=== PATIENT | male | born 1950 | race Caucasian/White ===

== ENCOUNTER 2018-03-21 13:34 | Emergency (ER) | payer MEDICARE, BC, SELFPAY ==
[2018-03-21] VITALS (27 sets, daily range): BP systolic 135–163; BP diastolic 53–111; PULSE 79–118; RESP 4–32; TEMP 37.3; O2SAT 90–99
[2018-03-21] MEDS: Albuterol/Ipratropium 3 ML UPD VIAL (14:00)
--- NOTE | 2018-03-21 14:07 | DI.RAD_ITS ---
SYMPTOMS/DIAGNOSIS: SOB, WHEEZE CHEST X-RAY: Comparison is 10/24/17. The heart size and pulmonary vasculature are within normal limits. No focal consolidating infitlrates, effusions or pneumothoraces are identified. Degenerative changes are present in the spine. IMPRESSION: No acute pulmonary process.
--- NOTE | 2018-03-21 14:11 | W.ED.GENAD ---
Discharge Plan Disposition Patient Disposition: HOME Condition: Improving Discharge Details Chief Complaint: SOB Clinical Impression: Bronchitis, Asthma Primary Care Provider: Amisha Thakkar ED Provider: Paul Pena Home Meds and New Rx's Prescriptions: New prednisone 20 mg tablet 40 mg PO DAILY Qty: 10 RF: 0 doxycycline hyclate 100 mg tablet 100 mg PO BID Qty: 13 RF: 0 Continue cholecalciferol (vitamin D3) 1,000 UNIT capsule 1 cap PO DAILY RF: 0 glucosam-chond ym-hbixce-ob ac 1 EACH capsule 2 cap PO DAILY RF: 0 inhalational spacing device [Aerochamber Plus Flow-Vu] 1 EACH spacer 1 ea Miscellaneous Q4H PRN Qty: 1 RF: 0 apixaban [Eliquis] 5 mg tablet 5 mg PO BID Qty: 90 RF: 3 atorvastatin [Lipitor] 80 mg tablet 80 mg PO HS Qty: 90 RF: 12 levalbuterol tartrate [Xopenex HFA] 45 mcg/actuation HFA aerosol inhaler 45 - 90 mcg Inhalation Q4H PRN Qty: 45 RF: 5 metoprolol succinate 100 mg tablet extended release 24 hr 100 mg PO DAILY Qty: 90 RF: 3 diltiazem HCl 120 mg capsule,extended release 24hr 120 mg PO DAILY Qty: 180 RF: 3 Discharge Instructions Instructions: Asthma (ED), Acute Bronchitis (ED) Additional Instructions: Please take full course of antibiotic as prescribed. Your next dose is tonight. Take prednisone as prescribed. Your next dose is tomorrow. Be sure to use your inhaler as prescribed for wheezing. Please contact your primary care physician to arrange follow-up. Return to the ER for any worsening or new concerning symptoms. Referrals: Amisha Thakkar MD, [place] [Primary Care Provider] - Medical Decision Making 68-year-old male with history of atrial fibrillation, on Eliquis, coronary artery disease status post 1 stent, suspected asthma with intermittent flares with cold weather exposure, here with wheezing over the past 4 days. Initial exam, lungs wheezing bilaterally. Patient with low saturations. Chronic cough. Afebrile. Chest x-ray reviewed and interpreted by radiology: Negative for acute cardiopulmonary disease. Patient was given Solu-Medrol 125 mg IV and 3 DuoNeb treatments. On reassessment patient had significant improvement in respiration. Patient saturating well with no wheeze. He does have some rhonchi bilaterally. Labs reviewed and leukocytosis noted. I suspect patient has a bronchitis versus early pneumonia not apparent on chest x-ray. Plan to treat with doxycycline. I will continue prednisone burst. Patient was instructed to take his albuterol as prescribed. Patient was advised to follow-up with his primary care physician this week and I encouraged him to return should have any worsening or new concerning symptoms. HPI General Mode of arrival: ambulatory. Date/Time Provider Initiated Documentation: 03/21/18 14:07. Limitations to Documentation: no limitations. Information obtained by: patient. HPI Narrative: 68-year-old male with history of atrial fibrillation, on Eliquis, coronary artery disease status post 1 stent, suspected asthma with intermittent flares with cold weather exposure, here with wheezing over the past 4 days. Wheeze is worsening. Severe last night. Albuterol did not seem to be helping today. He does note that he has chronic cough with no change. No chest pain. No leg swelling or calf pain. Related Data Home Medications Medication Instructions Recorded Confirmed cholecalciferol (vitamin D3) 1 cap PO DAILY 10/05/12 03/21/18 glucosam-chond he-ypjmqk-jn ac 2 cap PO DAILY 10/05/12 03/21/18 inhalational spacing device #1 unit 10/18/17 03/21/18 [Aerochamber Plus Flow-Vu] apixaban 5 mg tablet 5 mg PO BID #90 tab 03/13/18 03/21/18 atorvastatin 80 mg tablet 80 mg PO HS #90 tab 03/13/18 03/21/18 levalbuterol HFA 45 mcg/actuation 45 - 90 mcg INHALATION Q4H PRN #45 03/13/18 03/21/18 aerosol inhaler gm metoprolol succinate ER 100 mg 100 mg PO DAILY #90 tab 03/13/18 03/21/18 tablet,extended release 24 hr diltiazem CD 120 mg 120 mg PO DAILY #180 tab 03/14/18 03/21/18 capsule,extended release 24 hr doxycycline hyclate 100 mg PO BID #13 tab 03/21/18 prednisone 40 mg PO DAILY #10 tab 03/21/18 Previous Rx's Medication Instructions Recorded inhalational spacing device #1 unit 10/18/17 [Aerochamber Plus Flow-Vu] apixaban 5 mg tablet 5 mg PO BID #90 tab 03/13/18 atorvastatin 80 mg tablet 80 mg PO HS #90 tab 03/13/18 levalbuterol HFA 45 mcg/actuation 45 - 90 mcg INHALATION Q4H PRN #45 03/13/18 aerosol inhaler gm metoprolol succinate ER 100 mg 100 mg PO DAILY #90 tab 03/13/18 tablet,extended release 24 hr diltiazem CD 120 mg 120 mg PO DAILY #180 tab 03/14/18 capsule,extended release 24 hr doxycycline hyclate 100 mg PO BID #13 tab 03/21/18 prednisone 40 mg PO DAILY #10 tab 03/21/18 Allergies Allergy/AdvReac Type Severity Reaction Status Date / Time DEANN Inhibitors Allergy Unknown Unverified 03/21/18 14:36 lisinopril AdvReac Mild Unverified 03/21/18 14:36 General Stated Complaint: SOB TIFFANIE: 3 Review of Systems Review of Systems All systems reviewed & are unremarkable except as noted in HPI and below Cardiovascular Reports dyspnea Respiratory Reports cough and Reports dyspnea Gastrointestinal Denies abdominal pain PFSH Family History Mother Essential hypertension Heart disease COPD (chronic obstructive pulmonary disease) Father Essential hypertension Heart disease Cerebrovascular accident Sister Neoplasm Grandfather No problems noted. Grandfather No problems noted. Grandmother No problems noted. Grandmother No problems noted. Son No problems noted. Daughter No problems noted. Social History Smoking/Tobacco Use Status: Never Surgical History Colonoscopy - MAC LOW BACK DISC SURGERY Stent placement Exam Const General: cooperative and no acute distress HENMI Head: normocephalic and atraumatic Mouth: moist mucous membranes Eyes Conjunctivae: normal conjunctivae Sclera: normal sclerae EOM: EOM intact bilaterally Neck Neck: trachea midline and supple Resp Effort & Inspection: able to speak in complete sentences and no stridor Auscultation: rhonchi and wheezes expiratory wheezes (bilateral) Cardio Jugular venous pressure: no JVD Rate: regular rate and not tachycardic Rhythm: regular rhythm GI Palpation: soft, not firm, no guarding, no masses, not rigid and nontender Skin General skin exam: no rashes or lesions noted Neuro General: alert, awake, oriented x3 and tone normal Extrem General: no calf tenderness bilaterally and no edema Psych Appearance: grossly normal Mental Status: mental status grossly normal Speech and Movement: speech and movement normal Course Vital Signs Temperature 37.3 C 03/21/18 13:44 Pulse 82 03/21/18 13:44 Respiratory Rate 32 H 03/21/18 13:44 Blood Pressure 163/69 H 03/21/18 13:44 Pulse Oximetry 90 L 03/21/18 13:44 Temperature 37.3 C 03/21/18 13:44 Temperature Source Skin 03/21/18 13:44 Pulse 82 03/21/18 13:44 Respiratory Rate 32 H 03/21/18 13:49 Respiratory Effort Labored 03/21/18 13:49 Respiratory Pattern Normal 03/21/18 13:49 Blood Pressure 163/69 H 03/21/18 13:44 Blood Pressure Position Sitting 03/21/18 13:44 Pulse Oximetry 90 L 03/21/18 13:44 Oxygen Delivery Method Room Air 03/21/18 13:44 Oxygen Flow Rate 0 03/21/18 13:44
[2018-03-21 14:17] LABS: Abs Immature Grans 0.04 k/cumm (0.0-0.09); Absolute Basophil Count 0.08 k/cumm (0.0-0.2); Absolute Eosinophil Count 0.15 k/cumm (0.0-0.7); Absolute Lymphocyte Count 0.92 k/cumm (1.2-3.4); Absolute Monocyte Count 1.53 k/cumm (0.11-0.7); Absolute Neutrophil Count 13.77 k/cumm (1.2-6.7); Basophils % 0.5; Eosinophils % 0.9; HGB 16.5 g/dL (13.5-17.5); Immature Grans % 0.2; Lymphocytes % 5.6; Mean Corp. HGB Concentration 34.4 g/dL (32.0-36.0); Mean Corpuscular Hemoglobin 31.7 pg (27.0-33.0); Mean Corpuscular Volume 92.3 fL (80-95); Mean Platelet Volume 11.4 fL (8.0-11.0); Monocytes % 9.3; Neutrophils % 83.5; Platelet Count 186 x1000/uL (130-400); RBC Distribution Width 12.8 % (11.8-14.1); White Blood Cell Count 16.49 k/cumm (4.4-10.8)
[2018-03-21] MEDS: methylPREDNISolone SUCC 125 MG VIAL IVP (14:20)
[2018-03-21] MEDS: Albuterol/Ipratropium 3 ML UPD VIAL UPD ×2 (14:21→14:26)
[2018-03-21 14:33] LABS: RBC Morphology Normal
[2018-03-21 14:37] LABS: ALT 25 U/L (12-78); AST 15 U/L (15-37); Albumin 4.4 g/dL (3.4-5.0); Alkaline Phosphatase 84 U/L (46-116); Anion Gap 9.5 mmol/L (3-11); BUN 12 mg/dL (7-18); Bilirubin, Total 1.3 mg/dL (0.2-1.0); CO2 29.5 mmol/L (21.0-32.0); CREATININE 0.86 mg/dL (0.70-1.30); Calcium 9.6 mg/dL (8.5-10.1); Chloride 101 mmol/L (98-107); Glucose 133 mg/dL (70-100); Magnesium 2.1 mg/dL (1.8-2.4); NT-proBNP 374 pg/mL; Potassium 3.9 mmol/L (3.5-5.1); Sodium 140 mmol/L (136-145); Total Protein 8.3 g/dL (6.4-8.2); Troponin I < 0.02 ng/mL (0.00-0.06)
[2018-03-21] MEDS: Doxycycline Hyclate 100 MG CAP PO (15:59)
--- NOTE | 2018-03-21 16:07 | ED.GENADUL_ITS ---
Discharge Plan Disposition Patient Disposition: HOME Condition: Improving Discharge Details Chief Complaint: SOB Clinical Impression: Bronchitis, Asthma Primary Care Provider: Amisha Thakkar ED Provider: Paul Pena Home Meds and New Rx's Prescriptions: New prednisone 20 mg tablet 40 mg PO DAILY Qty: 10 RF: 0 doxycycline hyclate 100 mg tablet 100 mg PO BID Qty: 13 RF: 0 Continue cholecalciferol (vitamin D3) 1,000 UNIT capsule 1 cap PO DAILY RF: 0 glucosam-chond sb-qvwbxn-es ac 1 EACH capsule 2 cap PO DAILY RF: 0 inhalational spacing device [Aerochamber Plus Flow-Vu] 1 EACH spacer 1 ea Miscellaneous Q4H PRN Qty: 1 RF: 0 apixaban [Eliquis] 5 mg tablet 5 mg PO BID Qty: 90 RF: 3 atorvastatin [Lipitor] 80 mg tablet 80 mg PO HS Qty: 90 RF: 12 levalbuterol tartrate [Xopenex HFA] 45 mcg/actuation HFA aerosol inhaler 45 - 90 mcg Inhalation Q4H PRN Qty: 45 RF: 5 metoprolol succinate 100 mg tablet extended release 24 hr 100 mg PO DAILY Qty: 90 RF: 3 diltiazem HCl 120 mg capsule,extended release 24hr 120 mg PO DAILY Qty: 180 RF: 3 Discharge Instructions Instructions: Asthma (ED), Acute Bronchitis (ED) Additional Instructions: Please take full course of antibiotic as prescribed. Your next dose is tonight. Take prednisone as prescribed. Your next dose is tomorrow. Be sure to use your inhaler as prescribed for wheezing. Please contact your primary care physician to arrange follow-up. Return to the ER for any worsening or new concerning symptoms. Referrals: Amisha Thakkar MD, [place] [Primary Care Provider] - Medical Decision Making 68-year-old male with history of atrial fibrillation, on Eliquis, coronary artery disease status post 1 stent, suspected asthma with intermittent flares with cold weather exposure, here with wheezing over the past 4 days. Initial exam, lungs wheezing bilaterally. Patient with low saturations. Chronic cough. Afebrile. Chest x-ray reviewed and interpreted by radiology: Negative for acute cardiopulmonary disease. Patient was given Solu-Medrol 125 mg IV and 3 DuoNeb treatments. On reassessment patient had significant improvement in respiration. Patient saturating well with no wheeze. He does have some rhonchi bilaterally. Labs reviewed and leukocytosis noted. I suspect patient has a bronchitis versus early pneumonia not apparent on chest x-ray. Plan to treat with doxycycline. I will continue prednisone burst. Patient was instructed to take his albuterol as prescribed. Patient was advised to follow-up with his primary care physician this week and I encouraged him to return should have any worsening or new concerning symptoms. HPI General Mode of arrival: ambulatory . Date/Time Provider Initiated Documentation: 03/21/18 14:07 . Limitations to Documentation: no limitations . Information obtained by: patient . HPI Narrative: 68-year-old male with history of atrial fibrillation, on Eliquis , coronary artery disease status post 1 stent, suspected asthma with intermittent flares with cold weather exposure, here with wheezing over the past 4 days. Wheeze is worsening. Severe last night. Albuterol did not seem to be helping today. He does note that he has chronic cough with no change. No chest pain. No leg swelling or calf pain. Related Data Home Medications Medication Instructions Recorded Confirmed cholecalciferol (vitamin D3) 1 cap PO DAILY 10/05/12 03/21/18 glucosam-chond ai-eegych-ko ac 2 cap PO DAILY 10/05/12 03/21/18 inhalational spacing device #1 unit 10/18/17 03/21/18 [Aerochamber Plus Flow-Vu] apixaban 5 mg tablet 5 mg PO BID #90 tab 03/13/18 03/21/18 atorvastatin 80 mg tablet 80 mg PO HS #90 tab 03/13/18 03/21/18 levalbuterol HFA 45 mcg/actuation 45 - 90 mcg INHALATION Q4H PRN #45 03/13/18 aerosol inhaler gm metoprolol succinate ER 100 mg 100 mg PO DAILY #90 tab 03/13/18 03/21/18 tablet,extended release 24 hr diltiazem CD 120 mg 120 mg PO DAILY #180 tab 03/14/18 03/21/18 capsule,extended release 24 hr doxycycline hyclate 100 mg PO BID #13 tab 03/21/18 prednisone 40 mg PO DAILY #10 tab 03/21/18 Previous Rx's Medication Instructions Recorded inhalational spacing device #1 unit 10/18/17 [Aerochamber Plus Flow-Vu] apixaban 5 mg tablet 5 mg PO BID #90 tab 03/13/18 atorvastatin 80 mg tablet 80 mg PO HS #90 tab 03/13/18 levalbuterol HFA 45 mcg/actuation 45 - 90 mcg INHALATION Q4H PRN #45 03/13/18 aerosol inhaler gm metoprolol succinate ER 100 mg 100 mg PO DAILY #90 tab 03/13/18 tablet,extended release 24 hr diltiazem CD 120 mg 120 mg PO DAILY #180 tab 03/14/18 capsule,extended release 24 hr doxycycline hyclate 100 mg PO BID #13 tab 03/21/18 prednisone 40 mg PO DAILY #10 tab 03/21/18 Allergies Allergy/AdvReac Type Severity Reaction Status Date / Time DEANN Inhibitors Allergy Unknown Unverified 03/21/18 14:36 lisinopril AdvReac Mild Unverified 03/21/18 14:36 General Stated Complaint: SOB TIFFANIE: 3 Review of Systems Review of Systems All systems reviewed & are unremarkable except as noted in HPI and below Cardiovascular Reports dyspnea Respiratory Reports cough and Reports dyspnea Gastrointestinal Denies abdominal pain PFSH Family History Mother Essential hypertension Heart disease COPD (chronic obstructive pulmonary disease) Father Essential hypertension Heart disease Cerebrovascular accident Sister Neoplasm Grandfather No problems noted. Grandfather No problems noted. Grandmother No problems noted. Grandmother No problems noted. Son No problems noted. Daughter No problems noted. Social History Smoking/Tobacco Use Status: Never Surgical History Colonoscopy - MAC LOW BACK DISC SURGERY Stent placement Exam Const General: cooperative and no acute distress HENPA Head: normocephalic and atraumatic Mouth: moist mucous membranes Eyes Conjunctivae: normal conjunctivae Sclera: normal sclerae EOM: EOM intact bilaterally Neck Neck: trachea midline and supple Resp Effort & Inspection: able to speak in complete sentences and no stridor Auscultation: rhonchi and wheezes expiratory wheezes (bilateral) Cardio Jugular venous pressure: no JVD Rate: regular rate and not tachycardic Rhythm: regular rhythm GI Palpation: soft, not firm, no guarding, no masses, not rigid and nontender Skin General skin exam: no rashes or lesions noted Neuro General: alert, awake, oriented x3 and tone normal Extrem General: no calf tenderness bilaterally and no edema Psych Appearance: grossly normal Mental Status: mental status grossly normal Speech and Movement: speech and movement normal Course Vital Signs Temperature 37.3 C 03/21/18 13:44 Pulse 82 03/21/18 13:44 Respiratory Rate 32 H 03/21/18 13:44 Blood Pressure 163/69 H 03/21/18 13:44 Pulse Oximetry 90 L 03/21/18 13:44 Temperature 37.3 C 03/21/18 13:44 Temperature Source Skin 03/21/18 13:44 Pulse 82 03/21/18 13:44 Respiratory Rate 32 H 03/21/18 13:49 Respiratory Effort Labored 03/21/18 13:49 Respiratory Pattern Normal 03/21/18 13:49 Blood Pressure 163/69 H 03/21/18 13:44 Blood Pressure Position Sitting 03/21/18 13:44 Pulse Oximetry 90 L 03/21/18 13:44 Oxygen Delivery Method Room Air 03/21/18 13:44 Oxygen Flow Rate 0 03/21/18 13:44
== END 2018-03-21 16:14 | disposition home or self-care (01) ==
PROVIDERS: Emergency Provider Student in an Organized Health Care Education/Training Program; PCP Family Medicine
DX: J20.9 Acute bronchitis, unspecified (principal); J45.909 Unspecified asthma, uncomplicated
CPT/HCPCS: 36415; 80053; 93005; 94640; 99285; 71046; 83735; 83880; 84484; 85025; 93010; J2930; J7620

== ENCOUNTER 2018-03-22 01:01 | Outpatient (CLI) | payer MEDICARE, BC, SELFPAY ==
[2018-03-22 11:36] LABS: ALT 24 U/L (12-78); AST 23 U/L (15-37); Albumin 4.2 g/dL (3.4-5.0); Alkaline Phosphatase 78 U/L (46-116); Anion Gap 15.5 mmol/L (3-11); BUN 26 mg/dL (7-18); Bilirubin, Total 0.8 mg/dL (0.2-1.0); CO2 23.5 mmol/L (21.0-32.0); CREATININE 1.27 mg/dL (0.70-1.30); Calcium 9.8 mg/dL (8.5-10.1); Chloride 102 mmol/L (98-107); Estimated GFR 56.07 (mL/min/1.73m2); Glucose 175 mg/dL (70-100); NT-proBNP 349 pg/mL; Potassium 4.2 mmol/L (3.5-5.1); Sodium 141 mmol/L (136-145); Total Protein 7.7 g/dL (6.4-8.2)
[2018-03-22 11:49] LABS: Cholesterol 114 mg/dL (50-200); HDL Cholesterol 75 mg/dL (40-60); LDL CHOLESTEROL 35 mg/dL (<100); Triglyceride 54 mg/dL (30-150)
== END 2018-03-22 01:21 ==
PROVIDERS: PCP Family Medicine; Visit Provider Family Medicine
DX: I10 Essential (primary) hypertension (principal); I25.10 Atherosclerotic heart disease of native coronary artery without angina pectoris; I48.0 Paroxysmal atrial fibrillation; R06.02 Shortness of breath
CPT/HCPCS: 36415; 80053; 80061; 83721; 83880; 84443

== ENCOUNTER → 2019-01-04 09:38 | Outpatient (BNVA) | payer MEDICARE, BC, SELFPAY | PROVIDERS: PCP Family Medicine; Visit Provider Internal Medicine Cardiovascular Disease | DX: I48.0 Paroxysmal atrial fibrillation (principal); I25.10 Atherosclerotic heart disease of native coronary artery without angina pectoris; I10 Essential (primary) hypertension; E78.5 Hyperlipidemia, unspecified; J44.9 Chronic obstructive pulmonary disease, unspecified | CPT/HCPCS: 99214 ==

== ENCOUNTER 2019-11-30 04:16 | Outpatient (CLI) | payer MEDICARE, BC, SELFPAY ==
[2019-11-30 12:11] LABS: HCT 42.3 % (40.0-50.0); HGB 14.5 g/dL (13.5-17.5); Mean Corp. HGB Concentration 34.3 g/dL (32.0-36.0); Mean Corpuscular Hemoglobin 32.4 pg (27.0-33.0); Mean Corpuscular Volume 94.4 fL (80-95); Mean Platelet Volume 11.2 fL (8.0-11.0); Platelet Count 182 x1000/uL (130-400); RBC 4.48 m/cumm (4.50-6.00); White Blood Cell Count 6.36 k/cumm (4.4-10.8)
[2019-11-30 14:23] LABS: ALT 35 U/L (16-63); AST 24 U/L (15-37); Albumin 4.3 g/dL (3.4-5.0); Alkaline Phosphatase 64 U/L (46-116); Anion Gap 7.9 mmol/L (3-11); BUN 15 mg/dL (7-18); Bilirubin, Total 0.8 mg/dL (0.2-1.0); CO2 28.1 mmol/L (21.0-32.0); CREATININE 0.89 mg/dL (0.70-1.30); Calcium 9.2 mg/dL (8.5-10.1); Calculated LDL 44 mg/dL (<100); Chloride 105 mmol/L (98-107); Cholesterol 122 mg/dL (<200); Glucose 103 mg/dL (74-106); HDL Cholesterol 66 mg/dL (40-60); Potassium 4.4 mmol/L (3.5-5.1); Sodium 141 mmol/L (136-145); Total Protein 7.2 g/dL (6.4-8.2); Triglyceride 64 mg/dL (<150)
== END 2019-11-30 04:36 ==
PROVIDERS: PCP Family Medicine; Visit Provider Family Medicine
DX: I10 Essential (primary) hypertension (principal); I48.0 Paroxysmal atrial fibrillation
CPT/HCPCS: 36415; 80053; 80061; 85027

== ENCOUNTER → 2019-12-17 08:42 | Outpatient (BNVA) | payer MEDICARE, BC, SELFPAY | PROVIDERS: PCP Family Medicine; Referring Provider Family Medicine; Visit Provider Internal Medicine Cardiovascular Disease | DX: I25.10 Atherosclerotic heart disease of native coronary artery without angina pectoris (principal); I10 Essential (primary) hypertension; I48.0 Paroxysmal atrial fibrillation; Z79.01 Long term (current) use of anticoagulants | CPT/HCPCS: 99213 ==

== ENCOUNTER → 2020-01-25 10:21 | Outpatient (BNVA) | payer MEDICARE, BC, SELFPAY | PROVIDERS: PCP Family Medicine; Referring Provider Family Medicine; Visit Provider Physical Therapy Assistant | DX: Z12.11 Encounter for screening for malignant neoplasm of colon (principal); I10 Essential (primary) hypertension ==

== ENCOUNTER 2020-02-08 08:15 | Day surgery (SDC) | payer MEDICARE, BC, SELFPAY ==
[2020-02-08 08:28] VITALS: BP 159/77; PULSE 73; RESP 16; TEMP 36.5; O2SAT 97
[2020-02-08] MEDS: Lactated Ringers 1,000 ML 80 ML IV (08:47)
--- NOTE | 2020-02-08 09:20 | PDOC.DSDIS_ITS ---
Discharge Plan Disposition Patient Disposition: HOME Condition: Good Discharge Details Reason For Visit: Colonoscopy Attending Provider: Bernadette Osuna Primary Care Provider: Amisha Thakkar Home Meds and New Rx's Prescriptions: Discontinued polyethylene glycol 3350 17 gram/dose powder 238 g PO ONCE Qty: 238 RF: 0 bisacodyl [Dulcolax (bisacodyl)] 5 mg tablet,delayed release (DR/EC) 5 mg PO ONCE Qty: 4 RF: 0 No Action aspirin 81 mg tablet,delayed release (DR/EC) 81 mg PO DAILY RF: 0 atorvastatin [Lipitor] 80 mg tablet 80 mg PO HS Qty: 90 RF: 12 diltiazem HCl 120 mg capsule,extended release 24hr 120 mg PO DAILY Qty: 180 RF: 3 metoprolol succinate 100 mg tablet extended release 24 hr 100 mg PO DAILY Qty: 90 RF: 3 levalbuterol tartrate [Xopenex HFA] 45 mcg/actuation HFA aerosol inhaler 45 - 90 mcg Inhalation Q4H PRN Qty: 45 RF: 5 Eliquis 5 mg tablet 5 mg PO BID Qty: 180 RF: 3 acetaminophen 500 mg capsule 1,000 mg PO QHS RF: 0 diphenhydramine-acetaminophen [Tylenol PM Extra Strength] 25-500 mg tablet 2 tab PO QHS PRNRF: 0 glucosam-chond fy-egibyi-ek ac 1 EACH capsule 2 cap PO DAILY RF: 0 (DME) Aerochamber Plus Flow-Vu 1 EACH spacer 1 ea Miscellaneous Q4H PRN Qty: 1 RF: 0 cholecalciferol (vitamin D3) 25 mcg (1,000 unit) capsule 50 mcg PO DAILY RF: 0 budesonide-formoterol [Symbicort] 80-4.5 mcg/actuation HFA aerosol inhaler 2 puff IH BID Qty: 10.2 RF: 7 Discharge Instructions Additional Instructions: Findings: Your colonoscopy was normal. Follow up: No further routine screening colonoscopy is needed but can be considered if symptoms such as change in bowel habits or blood in the stool arise. Please call if you develop: fevers >101.5 Nausea or Vomiting Abdominal pain that is not transient DAY SURGERY UNIT POST COLONOSCOPY INSTRUCTIONS 1. Because there will be medication in your system for the next 24 hours, you may feel a little sleepy. Your coordination will be affected. Therefore: a. Do not drive or operate dangerous equipment for 24 hours. b. Do not drink alcohol beverages for 24 hours (not even beer). c. Plan to go home and rest for the day. 2. Generally there are no restrictions on your activity after a day or so has gone by, but you may feel a bit fatigued for a few days. 3 After you arrive home you may have a light meal and return to a normal diet as you can tolerate it without feeling sick to your stomach. 4. After surgery, you may feel pain or discomfort. This should be only transient, but if it persists please contact your doctor. 5. If there are any questions regarding the findings of your procedure, please f eel free to contact your doctor. 6. If you are unable to contact your doctor with a problem, contact the hospital at [phone]. 7. Continue all your regular medications unless directed otherwise. I understand the above instructions and have no questions. Signature of Patient or Responsible Adult Escort Date/Time Name of Responsible Adult Escort Signature of Nurse Date/Time Activity:: Activity as Tolerated Diet:: As Tolerated Discharge Orders Discharge Orders: Discharge Order (Routine); Ordered 02/08/20 Ordered By: Bernadette Osuna DS: Diagnosis Discharge Diagnosis (1) Normal colonoscopy: Status: Acute
--- NOTE | 2020-02-08 09:21 | W.COLOREPORT ---
Date of service: 02/08/20 Time of Service: 10:07 Colonoscopy Report Date of procedure: 02/08/20 Pre-op diagnosis general: Screening Post-op diagnosis procedure note: other (Normal colon) Procedure: Colonoscopy Surgeon: Bernadette Osuna Anesthesia proc note operative: MAC Indications: This 69 year old man presents for routine screening colonoscopy. His last colonoscopy in 2009 was normal. No symptoms or FH colon cancer. Procedure Description: The patient was placed in the left Fair position. Propofol was titrated to sedation. Digital rectal examination revealed no abnormalities. The scope was advanced to the cecum without difficulty. The ileocecal valve and appendiceal orifice were clearly identified. The prep was good. The scope was slowly withdrawn over the course of greater than 6 minutes with no abnormalities seen in the ascending, transverse, descending, sigmoid colon or rectum including on retroflexed view. The patient tolerated the procedure well and was stable to recovery. No further routine screening colonoscopy is needed but can be considered if symptoms arise. .
[2020-02-08 10:26] VITALS: BP 122/55; PULSE 62; RESP 17; TEMP 36.8; O2SAT 99
== END 2020-02-08 10:53 | disposition home or self-care (01) ==
PROVIDERS: PCP Family Medicine; Visit Provider Surgery
PROC: 0DJD8ZZ Inspection of Lower Intestinal Tract, Via Natural or Artificial Opening Endoscopic (ICD-10-PCS; CPT 45378; principal; 2020-02-08 10:00)
DX: Z12.11 Encounter for screening for malignant neoplasm of colon (principal); I48.91 Unspecified atrial fibrillation
CPT/HCPCS: G0121

== ENCOUNTER 2020-11-28 02:54 | Outpatient (CLI) | payer MEDICARE, BC, SELFPAY ==
[2020-11-28 11:48] LABS: HCT 44.3 % (40.0-50.0); HGB 15.1 g/dL (13.5-17.5); MCH 31.7 pg (27.0-33.0); MCHC 34.1 % (32.0-36.0); MCV 92.9 fL (80-95); MPV 11.2 fL (8.0-11.0); Platelet Count 168 10^3/uL (130-400); RBC 4.77 10^6/uL (4.36-5.78); RDW 12.8 % (11.8-14.1); RDW-SD 43.9 fL; WBC 7.11 10^3/uL (4.4-10.8)
[2020-11-28 13:26] LABS: ALT 37 U/L (16-63); AST 27 U/L (15-37); Albumin 4.2 g/dL (3.4-5.0); Alkaline Phosphatase 64 U/L (46-116); Anion Gap 10.7 mmol/L (3-11); BUN 12 mg/dL (7-18); Bilirubin, Total 0.9 mg/dL (0.2-1.0); CO2 25.3 mmol/L (21.0-32.0); CREATININE 0.9 mg/dL (0.70-1.30); Calcium 9.5 mg/dL (8.5-10.1); Calculated LDL 53 mg/dL (<100); Chloride 107 mmol/L (98-107); Cholesterol 129 mg/dL (<200); Glucose 106 mg/dL (74-106); HDL Cholesterol 64 mg/dL (40-60); Potassium 4.2 mmol/L (3.5-5.1); Sodium 143 mmol/L (136-145); Total Protein 7.2 g/dL (6.4-8.2); Triglyceride 61 mg/dL (<150)
== END 2020-11-28 02:55 | disposition home or self-care (01) ==
LOC: LBO 02:54
PROVIDERS: PCP Family Medicine; Visit Provider Family Medicine
DX: I10 Essential (primary) hypertension (principal); E78.5 Hyperlipidemia, unspecified; I48.0 Paroxysmal atrial fibrillation
CPT/HCPCS: 36415; 80053; 80061; 85027

== ENCOUNTER → 2020-12-19 10:34 | Outpatient (BNVA) | payer MEDICARE, BC, SELFPAY | PROVIDERS: PCP Family Medicine; Referring Provider Family Medicine; Visit Provider Internal Medicine Cardiovascular Disease | DX: I48.0 Paroxysmal atrial fibrillation (principal); I25.10 Atherosclerotic heart disease of native coronary artery without angina pectoris | CPT/HCPCS: 99213 ==

== ENCOUNTER → 2021-12-11 09:50 | Outpatient (BNVA) | payer MEDICARE, BC, SELFPAY | PROVIDERS: PCP Family Medicine; Visit Provider Internal Medicine Cardiovascular Disease | DX: I48.0 Paroxysmal atrial fibrillation (principal); I25.10 Atherosclerotic heart disease of native coronary artery without angina pectoris | CPT/HCPCS: 99214; 99213 ==

== ENCOUNTER → 2022-02-12 01:01 | Outpatient (CLI) | payer MEDICARE, BC, SELFPAY ==
--- OUTSIDE RECORDS SUMMARY | 2022-02-12 01:07 | XMS_ITS | Encounter Summary ---
:1950 Author Organization [facility] Address [address] [place] [address] Care Team Providers Name Role Phone Amisha Thakkar MD Primary Care Provider Reason for Referral (Routine) - Closed Specialty Diagnoses / Procedures Referred By Contact Refer red To Contact Diagnoses Non-ST elevation myocardial infarction (NSTEMI) Leon Phoenix MD [facility] [place] [address] Referral ID Status Reason Start Date Expiration Date Visits V isits Requested Authorized [id number] Closed Evaluate and 12/25/2014 06/23/2015 36 36 Treat Encounter Details Date Type Department Care Team Description 12/24/2014 - Hospital Intermediate Cardiac Leon Phoenix Unstab le angina; 12/25/2014 Encounter Care Unit Josseline Carranza MD Atrial fibrillation with RVR; [facility] Non-ST el evation myocardial infarction (NSTEMI); Hospital CENTER Atrial fibrillation with RVR, paroxysmal , CHADS2-VASc=[address] [facility] [place] [phone] Social History Tobacco Use Types Packs/Day Years Used Date Never Smoker Smokeless Tobacco: Never Used Alcohol Use Standard Drinks/Week Comments Yes 1.7 (1 standard drink = 0.6 oz pure alco hol) Sex Assigned at Date Recorded Not on file documented as of this encounter Last Filed Vital Signs Vital Sign Reading Time Taken Comments Blood Pressure 123/65 12/25/2014 12:01 PM EDT Pulse 58 12/25/2014 12:01 PM EDT Temperature 36.7 ??C (98.1 ??F) 12/25/2014 12:01 PM EDT Respiratory Rate 16 12/25/2014 12:01 PM EDT Oxygen Saturation 98% 12/25/2014 12:01 PM EDT Inhaled Oxygen Concentration - - Weight 86.8 kg (191 lb 5.8 oz) 12/25/2014 6:11 AM EDT Height 172.7 cm (5' 8) 12/25/2014 3:16 AM EDT Body Mass Index 29.1 12/25/2014 3:16 AM EDT documented in this encounter Discharge Summaries Leon Phoenix MD - 12/25/2014 11:46 AM EDT Images from the original note were not included. Discharge Summary Patient Name: Joshua Mohr Patient Age: 64 y.o. Language: Tajik Race: White Ethnicity: Not nor Admit date: 12/24/2014 Discharge date and time: 12/25/2014 3:07 PM Attending Physician: Leon Phoenix MD Discharge Physician: Leon Phoenix MD Follow-up Recommendations for Providers: ?? Aspirin for next 30 days with warfarin and plavix, then he can stop taking aspirin dose, continuing his warfarin and plavix for the next 11 months ?? Beta swapna, statin and ARB alone new to the patient ?? Encourage participation in cardiac rehab Inpatient Provider Contact Information: ALFREDO SHARMA, FOREST RESOURCE SPECIALIST [phone] Discharge Diagnoses (Hospital Problems) and Secondary Diagnoses (Chronic Problems): Active Hospital Problems Diagnosis ??? Non-ST elevation myocardial infarction (NSTEMI) 12/2014: cp in context of AF with RVR but recurrent cp during well rate controlled AF. Ruled in. Cath showed high grade pLAD. CHIQUITA placed. ??? Atrial fibrillation with RVR, paroxysmal, CHADS2-VASc=3 09/2014: VR of 160 bpm. Spontaneously converted. ??? Hypertension ??? Hyperlipidemia Resolved Hospital Problems Diagnosis Date Resolved No resolved problems to display. There are no active non-hospital problems to display for this patient. Operations/Major Procedures: Operations: Procedure(s) with comments: CARDIAC CATHETERIZATION - Procedure: Coronary Angiography Conclusions: * One vessel coronary artery disease (LAD) * Elevated left ventricular end diastolic pressure * Successful stent insertion of the proximal LAD lesion * Drug eluting stent (CHIQUITA) implanted. ECHO: 12/24/14 SUMMARY: 1. There is normal global left ventricular systolic function. Ejection fraction is estimated to be 55%. There are left ventricular segmental wall motion abnormalities present, as shown in the diagram below. 2. Right ventricular chamber size, wall thickness, and systolic function are within normal limits. 3. There is no hemodynamically significant valve disease. 4. See remainder of report for additional findings. History of Presentation: 64 y/o M with PMH of HTN, HLD & spinal stenosis s/p prior lower back surgery 2000. Pt has a positive family h/o CAD, but he himself is not known to have any prior heart disease. He presents with a 1 day h/o palpitations, diaphoresis & chest pressure. Mr. Mohr presents as a transfer from [facility] for t new onset A. Fib with RVR & Elevated Tropr/o NSTEMI. This pt has had 2 prior episodes of light headedness with near syncope which he thinks may be related to the current presentation. He states that 2 years ago as well as last year he was raking some leaves when he suffered 45 mins of nausea, dizziness & gen weakness. He was told that hehad some PAC's 15 years ago. At 10 pm last night after eating some cereal, pt noticed sudden onset palpitations, diaphoresis & throat discomfort. He admits to a 2/10 Chest pressure which radiated to the Lt arm and this lasted 1-2 hrs. 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 He denies any recent flu like illness, alcohol abuse, illicit drug use nor is there any excessive consumption of caffineated drinks. He denies any exertional CP, SOB, cough, PND, pedal edema nor calf tenderness. Pt recently travelled from [place] to [place] in October 2014 His drove him to [facility], where he was noted to be hemodynamically stable in A. Fib with RVR @ 163- 180 bpm. He was initially treated with Dilt 20mg IV bolus at which point his HR decreased to 115-120, & his chest heaviness resolved. However he then again had rapid A. Fib with HR >120's & so was started on Dilt gtt prior to being adm to the ICU. EKG revealed 2mm ST seg depressions in V3-V6 during rapid A. Fib. Echo report pending. This am he had 3/10 CP & so was started on Nitro gtt prior to transfer. Upon arrival @ [facility] he had 4/10 CP which resolved after increasing Nitro to 20mcg/min. At [facility]: Vitals: BP 129/87 - 128/53, HR 102-163, Spo2 96% RA, T 36C Labs: K 3.7, HCO3 24, Creat 0.8, WBC 10, Hb 14.9, PLt 194, TSH 1.66, INR 1, Trop I 0.02-->1.05--> 3.49 (ULN 0.06) [facility] Meds: Nitro gtt, Heparin gtt, Dilt gtt, K-Dur 40 po, KCL 20 iv, ASA 324, Lopressor 12.5 po x1 Hospital Course: NSTEMI Given the patient's risk factors, chest pain in the setting of normal heart rate, and positive biomarkers it was decided to proceed with coronary angiography. The patient went to the cardiac worm farm laborer for a diagnostic cath which showed proximal LAD disease. This lesion was stented with a drug eluting stent. The patient will need to be on aspirin, plavix and warfarin for 30 days, then the aspirin can be stopped for the duration of the 11 months left on the plavix dosing. The patient was also started on metoprolol, losartan alone (previously on hctz/losartan), statin andprn nitroglycerin. Atrial fibrillation The patient converted independently without intervention. His [id number] sore is 2 for age and hypertension. The patient was started on warfarin and will drift upward with a goal INR of 2.0-3.0. He wasstarted on metoprolol xl 100 mg daily. His INR will be followed by AMISHA THAKKAR MD with INR nextMonday. Hyperlipidemia Lipid profile showed total cholesterol 138 with LDL 80. Patient has been on no statin prior to his admission, he was started on atorvastatin 80 mg daily. Hypertension The patient was started on metoprolol xl 100 mg daily. His losartan dose was seperated from his hctzdosing which was stopped and the dose was lowered. His systolic blood pressure range has been 100-130s. Smoking cessation was advised & discussed-----n/a The patient was evaluated by the cardiac rehab team. The patient tolerated supervised ambulation in the hallway and up/downstairs with no anginal symptoms. It was recommended that the patient return home and participate in a supervised cardiac rehab program. The patient was discharged home in stable condition. Functional and Cognitive Status: Alert and oriented x 3, ambulatory-independent Important Studies and Lab Data: Labs: Lab Results Component Value Date WBC 7.1 12/25/2014 HGB 12.9* 12/25/2014 HCT 37.9* 12/25/2014 PLATELET 155 12/25/2014 Recent Labs 12/24/14 0627 INR 1.0 Lab Results Component Value Date NA 141 12/25/2014 K 4.1 12/25/2014 CL 106 12/25/2014 CO2 24 12/25/2014 BUN 16 12/25/2014 CREATININE 0.93 12/25/2014 Recent Labs 12/24/14 0627 TSH 1.56 Recent Labs 12/24/14 0627 HA1C 5.7* Recent Labs 12/25/14 0343 12/24/14 1745 12/24/14 0627 CK 109 156 190 TROPONINT 0.13* 0.11* 0.08* Lab Results Component Value Date CHLPL 138 12/24/2014 HDL 46 12/24/2014 CHOLHDL 3.0 12/24/2014 TRIG 88 12/24/2014 LDLDIRECT 80 12/24/2014 Pending Studies and Lab Data: None Discharge Conditions/Prognosis: Ambulatory without anginal symptoms Discharge to: Home Updated Allergies/ADRs: Allergies Allergen Reactions ??? Lisinopril Other (See Comments) Cough Immunizations Given this Hospitalization: There is no immunization history on file for this patient. Discharge Medications: Your Medications Notice Some of the medications listed here do not show instructions, such as how often to take the medication. Ask your doctor or nurse how to use these medications. Specifically ask about this and similar medications: Oazwzcgeojo-Quxbvdadb-Hjw C-Mn 500-400 mg Cap New Medications Dose Details atorvastatin 80 mg Tab Commonly known as: LIPITOR Take 1 tablet by mouth every evening. 80 mg Quantity: 30 tablet Refills: 2 clopidogrel 75 mg Tab Commonly known as: PLAVIX Take 1 tablet by mouth daily. 75 mg Quantity: 90 tablet Refills: 3 losartan 25 mg Tab Commonly known as: COZAAR Take 1 tablet by mouth daily. 25 mg Quantity: 30 tablet Refills: 2 meTOPROLOL succinate 100 mg Tablet sr Commonly known as: TOPROL-XL Take 1 tablet by mouth daily. 100 mg Quantity: 30 tablet Refills: 2 nitroGLYcerin 0.4 mg Subl Commonly known as: NITROSTAT Place 1 tablet under the tongue every 5 minutes as needed for Chest pain. 0.4 mg Quantity: 25 tablet Refills: prn warfarin 5 mg Tab Commonly known as: COUMADIN Take 1 tablet by mouth daily. 5 mg Quantity: 30 tablet Refills: 2 Continued medications, unchanged Dose Details aspirin 81 mg Tbec Take 81 mg by mouth daily. 81 mg Refills: 0 Cholecalciferol (Vitamin D3) 1,000 unit Cap Take by mouth. Refills: 0 diphenhydrAMINE 25 mg Cap Commonly known as: BENADRYL Take 50 mg by mouth nightly as needed for Itching or Sleep. 50 mg Refills: 0 Glucosamine Sulfate 500 mg Tab Take 1,000 mg by mouth daily. 1000 mg Refills: 0 Lfkdarhrwjf-Ybuirhkhc-Jmn C-Mn 500-400 mg Cap Refills: 0 STOPPED Medications ibuprofen 200 mg Tab Commonly known as: ADVIL;MOTRIN losartan-hydrochlorothiazide 100-25 mg Tab Commonly known as: HYZAAR Smoking Status at Discharge: History Smoking status ??? Never Smoker Smokeless tobacco ??? Never Used Instructions Given to Patient at Discharge: There are no Patient Instructions on file for this visit. General Instructions Anti-coagulation follow up: Anticoagulation (???Blood Thinner?? ) Management upon Discharge: ??? Reason for anticoagulation therapy: atrial fibrillation ??? Your NEW Warfarin (Coumadin??) dosing instruction upon discharge is: (Follow this schedule belowuntil your first INR check after discharge (usually in 2- 4 days): ??? Day of discharge (day #1): 5 mg ??? Day #2: 5 mg ??? Day #3: 5 mg ??? Day #4: 5 mg ??? Day #5: 5 mg ??? Day #6: Have INR checked ??? Follow up INR is scheduled on: Tuesday December 30, 2014 ??? It is very important that you have your PT/INR checked regularly as your dose may change based on your lab values ??? INR Goal: 2.0-3.0 ??? Expected duration of treatment: indefinite ??? Provider/Team responsible for ongoing outpatient anticoagulation management: ??? Provider/Team/Clinic: AMISHA THAKKAR MD ? If you have not received a call from your provider within 24hrs of having your INR drawn, pleasecall your outpatient provider for further dose instructions. ??? Warfarin (Coumadin??) should be taken at the same time every day, preferably after 5pm. ??? If taking Enoxaparin (Lovenox??) injections, continue taking until instructed to stop. (You willbe taking this medication until your INR is in the therapeutic range for 24 hours.) The following table shows your most recent INR results and Warfarin (Coumadin??) Doses Recent Labs 12/24/14 0627 INR 1.0 Warfarin started at discharge, to drift upward ??? Warfarin Education that was reviewed with you in the hospital: (please see your warfarin (Coumadin) packet for more information) ? Diet and medications can affect your INR ? Maintaining a diet with a consistent amount of vitamin K containing foods is important to keep your INR in range ? Avoid major changes in dietary habits ? Do not take or discontinue any prescription or tqdu-mgi-zliqbct medications without asking your doctor or pharmacist ? Inform all your doctors, pharmacists and other healthcare providers that you take warfarin ? Warfarin increases your risk of bleeding ??? If you experience any of these signs or symptoms of bleeding or blood clot please seek immediatemedical attention: - increased pain, swelling or sudden shortness of breath - severe headache - dizziness - unusual bleeding or bruising - changes in urine or bowel movement color - coughing or spitting up blood or nosebleeds that do not stop or occur more often Call your doctor if: Chest pain, shortness of breath, pain or swelling in legs occurs. If you have non-emergent questions between now and the time of your follow up appointments: During 8am-5pm Tuesday through Tuesday call [phone] to speak with a nurse in the cardiology clinic All other times call [phone] and ask to speak to the visor installer automation machine operator. Return to work: Retired Driving: No driving for 48 hours after catheterization. Follow up Appointments: INR check Tuesday December 30, 2014 Go to hospital lab with lab slip, results to AMISHA THAKKAR MD PCP Dr. Amisha Thakkar December 31, 2014 at 8:[address] Brenner February 04, 2015 1:30 pm Future Appointments and Orders Future Orders Complete By Expires Prothrombin Time [OYR431 Custom] 12/25/2014 12/25/2015 Process Instructions: Scheduling Instructions: Comments: Questions: Should this service/procedure be billed to the research sponsor?: Referral to Cardiac Rehab [EBF115 Custom] As directed Process Instructions: If no progress note charted, please enter Clinical details in comments. Scheduling Instructions: Questions: My question or request is: cardiac rehab @ [facility] Discharge References/Attachments None Alfredo Sharma APRN 12/25/2014 documented in this encounter Discharge Instructions Discharge InstructionsAlfredo Sharma, JOSE ALBERTO - 12/25/2014 12:04 PM EDT Anti-coagulation follow up: Anticoagulation (???Blood Thinner?? ) Management upon Discharge: ??? Reason for anticoagulation therapy: atrial fibrillation ??? Your NEW Warfarin (Coumadin??) dosing instruction upon discharge is: (Follow this schedule belowuntil your first INR check after discharge (usually in 2- 4 days): ??? Day of discharge (day #1): 5 mg ??? Day #2: 5 mg ??? Day #3: 5 mg ??? Day #4: 5 mg ??? Day #5: 5 mg ??? Day #6: Have INR checked ??? Follow up INR is scheduled on: Tuesday December 30, 2014 ??? It is very important that you have your PT/INR checked regularly as your dose may change based on your lab values ??? INR Goal: 2.0-3.0 ??? Expected duration of treatment: indefinite ??? Provider/Team responsible for ongoing outpatient anticoagulation management: ??? Provider/Team/Clinic: AMISHA THAKKAR MD ? If you have not received a call from your provider within 24hrs of having your INR drawn, pleasecall your outpatient provider for further dose instructions. ??? Warfarin (Coumadin??) should be taken at the same time every day, preferably after 5pm. ??? If taking Enoxaparin (Lovenox??) injections, continue taking until instructed to stop. (You willbe taking this medication until your INR is in the therapeutic range for 24 hours.) The following table shows your most recent INR results and Warfarin (Coumadin??) Doses Recent Labs 12/24/14 0627 INR 1.0 Warfarin started at discharge, to drift upward ??? Warfarin Education that was reviewed with you in the hospital: (please see your warfarin (Coumadin) packet for more information) ? Diet and medications can affect your INR ? Maintaining a diet with a consistent amount of vitamin K containing foods is important to keep your INR in range ? Avoid major changes in dietary habits ? Do not take or discontinue any prescription or mguv-xqh-kyapcsh medications without asking your doctor or pharmacist ? Inform all your doctors, pharmacists and other healthcare providers that you take warfarin ? Warfarin increases your risk of bleeding ??? If you experience any of these signs or symptoms of bleeding or blood clot please seek immediatemedical attention: - increased pain, swelling or sudden shortness of breath - severe headache - dizziness - unusual bleeding or bruising - changes in urine or bowel movement color - coughing or spitting up blood or nosebleeds that do not stop or occur more often Call your doctor if: Chest pain, shortness of breath, pain or swelling in legs occurs. If you have non-emergent questions between now and the time of your follow up appointments: During 8am-5pm Tuesday through Tuesday call [phone] to speak with a nurse in the cardiology clinic All other times call [phone] and ask to speak to the visor installer automation machine operator. Return to work: Retired Driving: No driving for 48 hours after catheterization. Follow up Appointments: INR check Tuesday December 30, 2014 Go to hospital lab with lab slip, results to AMISHA THAKKAR MD PCP Dr. Amisha Thakkar December 31, 2014 at 8:15 [address] Brenner February 04, 2015 1:30 pm documented in this encounter Medications at Time of Discharge Medication Sig Dispensed Refills Start Date End Date atorvastatin (LIPITOR) 80 Take 1 tablet by 30 tablet 2 12/11 mg Tablet mouth every evening. clopidogrel (PLAVIX) 75 mg Take 1 tablet by 90 tablet 3 Tablet mouth daily. losartan (COZAAR) 25 mg Take 1 tablet by 30 tablet 2 2014 Tablet mouth daily. nitroGLYcerin (NITROSTAT) Place 1 tablet 25 tablet 0 2014 0.4 mg Tablet, Sublingual under the tongue every 5 minutes as needed for Chest pain. warfarin (COUMADIN) 5 mg Take 1 tablet by 30 tablet 2 12/25 Tablet mouth daily. Glucosamine Sulfate 500 mg Take 1,000 mg by 0 Tablet mouth daily. Cholecalciferol, Vitamin Take by mouth. 0 D3, 1,000 unit Capsule aspirin 81 mg Tablet, Take 81 mg by 0 Delayed Release (E.C.) mouth daily. diphenhydrAMINE (BENADRYL) Take 50 mg by 0 25 mg Capsule mouth nightly as needed for Itching or Sleep. Mluazfpsqhe-Kattlratb-Tvq 0 12/09/2005 C-Mn 500-400 mg Cap meTOPROLOL succinate Take 1 tablet by 30 tablet 2 5 12/25/2015 (TOPROL-XL) 100 mg Tablet mouth daily. Sustained Release 24 hr documented as of this encounter Progress Notes Carolyne Liz DT - 12/25/2014 2:43 PM EDT Nutrition Services - Education Note Joshua Mohr : 1950 AGE: 64 y.o. Patient Active Problem List Diagnosis Date Noted ??? *Veoghlzz-Duk-JF elevation myocardial infarction (NSTEMI) 12/23/2014 ??? Hospital-Atrial fibrillation with RVR, paroxysmal, CHADS2-VASc=3 12/23/2014 Priority: High ??? Hospital-Hypertension 12/24/2014 ??? Hospital-Hyperlipidemia 12/24/2014 Reason for Nutrition Intervention: Consult Diet Order: [facility] Appetite: Good Food allergies: NKFA Ht Readings from Last 3 Encounters: 12/25/14 172.7 cm (5' 8) Wt Readings from Last 3 Encounters: 12/25/14 86.8 kg (191 lb 5.8 oz) Body mass index is 29.1 kg/(m^2). Vitamins/Minerals: Vitamin D3 noted. Education: Guidelines for a Heart Healthy Lifestyle educational material. Verbalized good understanding. Education material, with means of contact provided. Assessment: Patient and verbalized good understanding of current dietary restrictions at this time. He reported a good appetite without difficulty chewing or swallowing. He does not add salt to foods regularly however, does add salt and butter to popcorn which he consumes multiple times per week.Suggested eating plain popcorn with pepper instead as well as incorporating herbs and spices to helpflavor foods. Discussed how to read a food label and what terms to look for while grocery shopping. Mentioned how important serving size are. Highly encouraged daily consumption of fresh fruits and vegetables, lean meats and fish, whole grains and low fat dairy products. Educational material Guidelines for a Heart Healthy Lifestyle provided with contact information if questions arise. Nutrition will monitor and follow up weekly. Nutrition Plan: [facility] diet. Encourage good po intake. Monitor weight. Support and encouragement provided. Nutrition services to follow weekly thru hospital course unless consulted in the interim. MARÍA Richey Leon Phoenix MD - 12/25/2014 10:12 AM EDT Images from the original note were not included. 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 Non-ST elevation myocardial infarction (NSTEMI) 12/2014: cp in context of AF with RVR but recurrent cp during well rate controlled AF. Ruled in. Cath showed high grade pLAD. CHIQUITA placed. ??? Atrial fibrillation with RVR, paroxysmal, CHADS2-VASc=3 09/2014: VR of 160 bpm. Spontaneously converted. ??? Hypertension ??? Hyperlipidemia Resolved Hospital Problems Diagnosis Date Resolved No resolved problems to display. Interval History: Patient is feeling well this morning. Right groin feels well. Out of bed ambulating to bathroom. He had no chest pain or shortness of breath overnight. He is eager to return home. Review of Systems: Review of Systems Constitutional: Negative for activity change. Respiratory: Negative for shortness of breath. Cardiovascular: Negative for chest pain and palpitations. All other systems reviewed and are negative. Telemetry: HR: 43-85 sinus bradycardia, sinus rhythm, sinus arrhythmia Meds: Scheduled Meds: ??? aspirin 81 mg Oral Daily ??? cholecalciferol (Vitamin D3) 1,000 Units Oral Daily ??? famotidine 20 mg Oral BID ??? atorvastatin 80 mg Oral QPM ??? losartan 25 mg Oral Daily ??? clopidogrel 75 mg Oral Daily ??? meTOPROLOL tartrate 25 mg Oral Q6H MAREN Continuous Infusions: ??? heparin Stopped (12/24/14 1421) ??? nitroGLYcerin Stopped (12/24/14 0620) ??? DILTiazem infusion (ADD-vantage) Stopped (12/23/14 1832) PRN Meds:diphenhydrAMINE, nitroGLYcerin, acetaminophen, heparin (porcine) Physical Exam: Vital Signs: Last value Range last 24 hrs Temperature Temp: 36.8 ??C (98.2 ??F) Temp: [36.4 ??C (97.5 ??F)-36.8 ??C (98.2 ??F)] Heart Rate Heart Rate: 63 Heart Rate: [56-69] Blood Pressure BP: 133/61 mmHg BP: (109-139)/(52-67) Respiratory Rate Resp: 18 Resp: [15-24] SpO2 SpO2: 97 % SpO2: [95 %-100 %] Physical Exam Constitutional: He is oriented to person, place, and time. He appears well- developed and well-nourished. No distress. HENT: Head: Normocephalic and atraumatic. Eyes: Right eye exhibits no discharge. Left eye exhibits no discharge. Neck: Normal range of motion. Neck supple. No JVD present. Cardiovascular: Normal rate, regular rhythm, normal heart sounds and intact distal pulses. Exam reveals no gallop and no friction rub. No murmur heard. Pulmonary/Chest: Effort normal and breath sounds normal. No respiratory distress. He has no wheezes. Abdominal: Soft. Bowel sounds are normal. He exhibits no distension. There is no tenderness. There is no rebound. Musculoskeletal: Normal range of motion. He exhibits no edema. Neurological: He is alert and oriented to person, place, and time. Skin: Skin is warm and dry. He is not diaphoretic. No erythema. Right groin is clean, dry and intact. No hematoma or ooze. Intact distal pedal pulses. No bruit. Psychiatric: He has a normal mood and affect. His behavior is normal. Nursing note and vitals reviewed. Lab Comments: Recent Labs 12/25/1434212/24/1462612/23/14 1839 WBC 7.1 7.2 10.8* HGB 12.9* 13.0* 13.5* HCT 37.9* 38.4* 38.2* PLATELET 155 144* 171 Recent Labs 12/24/14 06 INR 1.0 Recent Labs 12/25/1434212/24/1462612/23/14 1839 NA 141 141 142 K 4.1 4.5 3.7 CL 106 105 105 CO2 24 23 21* BUN 16 17 13 CREATININE 0.93 0.78* 0.73* Recent Labs 12/24/14 06 AST 25 ALT 25 ALKPHOS 39* BILITOT 0.4 BILIDIR 0.1 Recent Labs 12/25/1434212/24/14 0612/23/14 1839 CALCIUM 9.0 9.2 9.0 MAGNESIUM -- 0.85 0.76 PHOS -- 2.4* -- Recent Labs 12/25/1434212/24/14 1745 12/24/14 06 CK 109 156 190 TROPONINT 0.13* 0.11* 0.08* Pertinent Radiographic/Diagnostic Results: Cardiac Cath: 12/24/14 Conclusions: * One vessel coronary artery disease (LAD) * Elevated left ventricular end diastolic pressure * Successful stent insertion of the proximal LAD lesion * Drug eluting stent (CHIQUITA) implanted. ECG: pending Assessment: Joshua Mohr is a 64 y.o. male who presented in newly diagnosed atrial fibrillation with elevated cardiac enzymes. Chest pain two times once heart rates were controlled which indicates that there may be more than demand ischemia to explain his NSTEMI. Cardiac cath found LAD disease which was stented with drug eluting stent. He will need to be on aspirin, Plavix and warfarin for one month then the aspirin can be stopped for the remainder of the year that the Plavix is needed. [id number] score of 3 (age, hypertension and CAD) so warfarin will be started. Goal INR between 2.0-3.0, will allow him to drift upward without bridging. Warfarin to be followed up by his PCP. Plan: NSTEMI On aspirin, statin, beta swapna, Plavix , ARB Cardiac cath as above Afib with RVR Converted last night to sinus rhythm Continue on beta swapna dosing [id number] score is 2 for (hypertension, age) Will start on warfarin dosing, drift up to goal INR between 2.0-3.0 Hypertension SBP range 100-130s Stop hctz Hyperlipidemia No statin at home, started on atorvastatin 80 mg TC 138, HDL 46, LDL 80, Trig 88 Discussed with Leon Phoenix MD Janette Stender, FOREST RESOURCE SPECIALIST 12/25/2014 Cardiology Attending Note I interviewed and examined the patient during comprehensive bedside rounds. I concur with the summary of interval events, active hospital-focused problem list and plan of care. I personally reviewed the medications, laboratory results, treatment decisions and updated the patient on all of these elements. Active Problem Active Hospital Problems Diagnosis ??? Non-ST elevation myocardial infarction (NSTEMI) ??? Atrial fibrillation with RVR, paroxysmal, CHADS2-VASc=3 ??? Hypertension ??? Hyperlipidemia Resolved Hospital Problems Diagnosis Date Resolved No resolved problems to display. Comment Doing well. Had small edge dissection with stenting yesterday but is doing well. OK for discharge. Leon Phoenix MD, MS, [facility] staff mill stenciler/ pager [phone] This patient meets or has met medical criteria to require an inpatient level of care, i.e. a minimumof two midnights in the hospital with multiple complex problems. Юлия Stovall RN - 12/24/2014 1:11 PM EDT Office of Care Management (OCM) / Agricultural Equipment Test Engineer(CM)/ Initial Assessment Discussed patient with Provider Team and in multidisciplinary discharge-planning rounds. Reviewed record and interviewed patient. Introduced/reviewed CM role and services accepted. REASON for HOSPITALIZATION: NSTEMI, AFIB PREVIOUS FUNCTIONAL STATUS: Independent physically & cognitively CURRENT FUNCTIONAL STATUS: Independent physically & cognitively SOCIAL / FAMILY SUPPORTS: Pt lives with his , Kyara, in single family, one level home, 5 stairs to enter. His is support person & available for assistance. ADVANCE DIRECTIVES: Pt completed AD's will bring to next MD appt. To scan in [facility]. HEALTH /PRESCRIPTION COVERAGE: Medicare AB, [employer] CURRENT HOME/COMMUNITY SERVICES/EQUIPMENT: None COLOR ROOM ATTENDANT REFERRAL: N/A PRIMARY CARE PHYSICIAN: None None None POTENTIAL DISCHARGE NEEDS: None known at this time ANTICIPATED BARRIERS TO DISCHARGE: None known at this time TRANSPORTATION @ D/C: Private transport to home in vehicle/ Kyara PLAN: CM will continue to monitor progress, follow for continuity of care and assist with discharge planning while hospitalized Service: Cardiology Agricultural Equipment Test Engineer: Sabra Pitt RN, BS, pager [phone] & Юлия Stovall RN, BS, pager [phone] . Leon Phoenix MD - 12/24/2014 9:59 AM EDT Images from the original note were not included. Inpatient Cardiology Progress Note Patient Name: Joshua Mohr Service: ASSEMBLER ADJUSTER / PA Responsible Attending: Leon Phoenix MD Reason for continued hospitalization: Evaluation and management of new atrial fibrillation, chest pain with normal heart rates Active Problems: Active Hospital Problems Diagnosis ??? Atrial fibrillation with RVR ??? Non-ST elevation myocardial infarction (NSTEMI) Resolved Hospital Problems Diagnosis Date Resolved No resolved problems to display. Interval History: Patient is feeling well this morning as he did prior to the events of Tuesday night. Chest pain twice when HR was managed. Currently pain free. Review of Systems: Review of Systems Constitutional: Negative for activity change. Respiratory: Negative for shortness of breath. Cardiovascular: Negative for chest pain and palpitations. All other systems reviewed and are negative. Telemetry: HR: 50-82 sinus bradycardia, sinus rhythm with occasional PACs, rare PVCs, HR down to 36 x 1 Meds: Scheduled Meds: ??? aspirin 81 mg Oral Daily ??? cholecalciferol (Vitamin D3) 1,000 Units Oral Daily ??? famotidine 20 mg Oral BID ??? atorvastatin 80 mg Oral QPM ??? meTOPROLOL tartrate 25 mg Oral Q6H MAREN Continuous Infusions: ??? heparin 1,300 Units/hr (12/24/14 0100) ??? nitroGLYcerin Stopped (12/24/14 0620) ??? DILTiazem infusion (ADD-vantage) Stopped (12/23/14 1832) PRN Meds:diphenhydrAMINE, nitroGLYcerin, acetaminophen, heparin (porcine) Physical Exam: Vital Signs: Last value Range last 24 hrs Temperature Temp: 36.7 ??C (98.1 ??F) Temp: [36.6 ??C (97.9 ??F)-36.8 ??C (98.2 ??F)] Heart Rate Heart Rate: 70 Heart Rate: [61-82] Blood Pressure BP: 120/66 mmHg BP: (108-128)/(48-70) Respiratory Rate Resp: 16 Resp: [16] SpO2 SpO2: 97 % SpO2: [95 %-97 %] Physical Exam Constitutional: He is oriented to person, place, and time. He appears well- developed and well-nourished. No distress. HENT: Head: Normocephalic and atraumatic. Eyes: Right eye exhibits no discharge. Left eye exhibits no discharge. Neck: Normal range of motion. Neck supple. No JVD present. Cardiovascular: Normal rate, regular rhythm, normal heart sounds and intact distal pulses. Exam reveals no gallop and no friction rub. No murmur heard. Pulmonary/Chest: Effort normal and breath sounds normal. No respiratory distress. He has no wheezes. Abdominal: Soft. Bowel sounds are normal. He exhibits no distension. There is no tenderness. There is no rebound. Musculoskeletal: Normal range of motion. He exhibits no edema. Neurological: He is alert and oriented to person, place, and time. Skin: Skin is warm and dry. He is not diaphoretic. No erythema. Psychiatric: He has a normal mood and affect. His behavior is normal. Nursing note and vitals reviewed. Lab Comments: Recent Labs 12/24/1462612/23/14 1839 WBC 7.2 10.8* HGB 13.0* 13.5* HCT 38.4* 38.2* PLATELET 144* 171 Recent Labs 12/24/14626 INR 1.0 Recent Labs 12/24/1462612/23/14 1839 NA 141 142 K 4.5 3.7 CL 105 105 CO2 23 21* BUN 17 13 CREATININE 0.78* 0.73* Recent Labs 12/24/14 06 AST 25 ALT 25 ALKPHOS 39* BILITOT 0.4 BILIDIR 0.1 Recent Labs 12/24/14 0627 12/23/14 1839 CALCIUM 9.2 9.0 MAGNESIUM 0.85 0.76 PHOS 2.4* -- Recent Labs 12/24/1427 12/24/14 0030 12/23/14 1839 CK 190 252* 320* TROPONINT 0.08* 0.11* 0.15* Pertinent Radiographic/Diagnostic Results: ECHO: 12/24/14 SUMMARY: 1. There is normal global left ventricular systolic function. Ejection fraction is estimated to be 55%. There are left ventricular segmental wall motion abnormalities present, as shown in the diagram below. 2. Right ventricular chamber size, wall thickness, and systolic function are within normal limits. 3. There is no hemodynamically significant valve disease. 4. See remainder of report for additional findings. Assessment: Joshua Mohr is a 64 y.o. male who presented in newly diagnosed atrial fibrillation with elevated cardiac enzymes. Chest pain two times once heart rates were controlled which indicates that there may be more than demand ischemia to explain his NSTEMI. Will plan for cardiac cath today. The indications, expected benefits and potential risks of heart catheterization were reviewed in detail with the patient. The potential for , heart attack, stroke, kidney failure, hemorrhage, allergic reaction, vascular complications and infection were reviewed in detail. The possibility of stenting and other percutaneous intervention with associated risk was reviewed. The possible need for emergent coronary artery bypass surgery was reviewed. After a discussion about the above, and having answered all questions posed, the patient was provided with a consent which was reviewed and signed. Plan: NSTEMI On IV heparin On aspirin, statin, beta swapna Restart his ARB today Cardiac cath today Afib with RVR Converted last night to sinus rhythm Continue on beta swapna dosing [id number] score is 2 for (hypertension, age) Hypertension SBP range 100-120s Restart ARB today at lower dose Will need to follow trends Hyperlipidemia No statin at home TC 138, HDL 46, LDL 80, Trig 88 Discussed with Leon Phoenix MD Janette Stender, FOREST RESOURCE SPECIALIST 12/24/2014 Cardiology Attending Note I interviewed and examined the patient during comprehensive bedside rounds. I concur with the summary of interval events, active hospital-focused problem list and plan of care. I personally reviewed the medications, laboratory results, treatment decisions and updated the patient on all of these elements. Active Problem Active Hospital Problems Diagnosis ??? Atrial fibrillation with RVR ??? Hypertension ??? Hyperlipidemia ??? Non-ST elevation myocardial infarction (NSTEMI) Resolved Hospital Problems Diagnosis Date Resolved No resolved problems to display. Comment Was feeling well this am. I recommended cath which showed high grade pLAD. Considered BMS vs CHIQUITA andelected the latter with plan to tx with Coumadin (for AF), ASA, and clopidogrel for 1 month, then warfarin and clopidogrel alone. Likely home in am. Leon Phoenix MD, MS, [facility] staff mill stenciler/ pager [phone] This patient meets or has met medical criteria to require an inpatient level of care, i.e. a minimumof two midnights in the hospital with multiple complex problems. Zay Kaplan RN - 12/23/2014 5:30 PM EDT 1715 Pt arrived form OSH alert and oriented. Clear speech, and answers all questions appropriatelyPtcame with heparin gtt, diltiazem gtt, and nitro gtt which initiated as it is. Pt denies chest pain or other discomfort upon arrival. Pt oriented to the room and call light. Attached to tele. VS obtained, physical assessment performed- refer to the Doc Flowsheet. EKG done at the bedside. Lab drawn. 1750 Pt converted from Afib to SR/SB. Pt's heart dropped to 40s, VSS. Pt asystematic - Dr Anderson notified - instructed to stop del drip which initiated as ordered. 1755 Pt complained of 4/10 L anterior chest pain, notified Dr. Anderson -Instructed to increase nitro, which initiated as ordered with good effect, refer to MAR documented in this encounter H&P Notes Jeronimo Siu MD - 12/23/2014 7:22 PM EDT Cardiology Admission H&P Patient Name: Joshua Mohr Date of : 1950 Age: 64 y.o. Hospital Admit Date: 12/23/2014 Inpatient Attending: Leon Phoenix MD PCP: SUMEET CANCHOLA, Presenting Diagnosis/Chief Complaint: palpitations & chest pain Active Problem List: Active Hospital Problems Diagnosis ??? Atrial fibrillation with RVR ??? Non-ST elevation myocardial infarction (NSTEMI) Resolved Hospital Problems Diagnosis Date Resolved No resolved problems to display. History of Present Illness: HPI 64 y/o M with PMH of HTN, HLD & spinal stenosis s/p prior lower back surgery 2000. Pt has a positive family h/o CAD, but he himself is not known to have any prior heart disease. He presents with a 1 day h/o palpitations, diaphoresis & chest pressure. Mr. Mohr presents as a transfer from [facility] for mgt new onset A. Fib with RVR & Elevated Tropr/o NSTEMI. This pt has had 2 prior episodes of light headedness with near syncope which he thinks may be related to the current presentation. He states that 2 years ago as well as last year he was raking some leaves when he suffered 45 mins of nausea, dizziness & gen weakness. He was told that hehad some PAC's 15 years ago. At 10 pm last night after eating some cereal, pt noticed sudden onset palpitations, diaphoresis & throat discomfort. He admits to a 2/10 Chest pressure which radiated to the Lt arm and this lasted 1-2 hrs. 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 He denies any recent flu like illness, alcohol abuse, illicit drug use nor is there any excessive consumption of caffineated drinks. He denies any exertional CP, SOB, cough, PND, pedal edema nor calf tenderness. Pt recently travelled from [place] to [place] in October 2014 His drove him to [facility], where he was noted to be hemodynamically stable in A. Fib with RVR @ 163- 180 bpm. He was initially treated with Dilt 20mg IV bolus at which point his HR decreased to 115-120, & his chest heaviness resolved. However he then again had rapid A. Fib with HR >120's & so was started on Dilt gtt prior to being adm to the ICU. EKG revealed 2mm ST seg depressions in V3-V6 during rapid A. Fib. Echo report pending. This am he had 3/10 CP & so was started on Nitro gtt prior to transfer. Upon arrival @ [facility] he had 4/10 CP which resolved after increasing Nitro to 20mcg/min. At [facility] : Vitals: BP 129/87 - 128/53, HR 102-163, Spo2 96% RA, T 36C Labs: K 3.7, HCO3 24, Creat 0.8, WBC 10, Hb 14.9, PLt 194, TSH 1.66, INR 1, Trop I 0.02-->1.05--> 3.49 (ULN 0.06) NEVRH Meds: Nitro gtt, Heparin gtt, Dilt gtt, K-Dur 40 po, KCL 20 iv, ASA 324, Lopressor 12.5 po x1 Past Medical History: Past Medical History Diagnosis Date ??? Hypertension ??? HLD (hyperlipidemia) Surgical History/Problems: Past Surgical History Procedure Laterality Date ??? Orthopedic surgery ??? Spine surgery Significant Family History: Family History Problem Relation Age of Onset ??? Chronic Obstructive Pulmonary Disease Mother ??? Coronary Artery Disease Father ??? Heart Disease Father ??? Cerebrovascular Accident Father Social History: History Social History ??? Marital Status: Spouse Name: N/A Number of Children: N/A ??? Years of Education: N/A Occupational History ??? Not on file. Social History Main Topics ??? Smoking status: Never Smoker ??? Smokeless tobacco: Not on file ??? Alcohol Use: Not on file ??? Drug Use: Not on file ??? Sexual Activity: Not on file Other Topics Concern ??? Not on file Social History Narrative ??? No narrative on file REVIEW OF SYSTEMS: Review of Systems Constitutional: Positive for diaphoresis, activity change and fatigue. Negative for appetite change and unexpected weight change. HENT: Negative for congestion. Eyes: Negative. Respiratory: Negative for cough, chest tightness, shortness of breath and wheezing. Cardiovascular: Positive for chest pain and palpitations. Negative for leg swelling. Gastrointestinal: Negative. Negative for nausea, vomiting and abdominal pain. Endocrine: Negative. Genitourinary: Negative. Negative for frequency, hematuria and difficulty urinating. Musculoskeletal: Positive for arthralgias. Skin: Negative. Allergic/Immunologic: Negative. Neurological: Positive for light-headedness. Hematological: Negative. Psychiatric/Behavioral: Negative. Medications: Prescriptions prior to admission Medication Sig Dispense Refill ??? losartan-hydrochlorothiazide (HYZAAR) 100-25 mg Tablet Take 1 tablet by mouth daily. ??? Glucosamine Sulfate 500 mg Tablet Take 1,000 mg by mouth daily. ??? Cholecalciferol, Vitamin D3, 1,000 unit Capsule Take by mouth. ??? aspirin 81 mg Tablet, Delayed Release (E.C.) Take 81 mg by mouth daily. ??? ibuprofen (ADVIL;MOTRIN) 200 mg Tablet Take 200 mg by mouth every 6 hours as needed for Pain. ??? diphenhydrAMINE (BENADRYL) 25 mg Capsule Take 50 mg by mouth nightly as needed for Itching or Sleep. ??? Qszsnovledb-Rdcvbqgwa-Joy C-Mn 500-400 mg Cap Allergies: Allergies Allergen Reactions ??? Lisinopril Other (See Comments) Cough PHYSICAL EXAM: Last set of vital signs: BP 108/70 Pulse 61 Temp(Src) 36.7 ??C (98.1 ??F) (Oral) Resp 16 Wt 86.1 kg (189 lb 13.1 oz) SpO2 96% Physical Exam Constitutional: He is oriented to person, place, and time. He appears well- developed and well-nourished. No distress. HENT: Head: Normocephalic and atraumatic. Mouth/Throat: Oropharynx is clear and moist. No oropharyngeal exudate. Eyes: Conjunctivae are normal. Pupils are equal, round, and reactive to light. Right eye exhibits nodischarge. Left eye exhibits no discharge. No scleral icterus. Neck: Normal range of motion. Neck supple. No JVD present. No tracheal deviation present. No thyromegaly present. Cardiovascular: Normal rate, normal heart sounds and intact distal pulses. Exam reveals no gallop and no friction rub. No murmur heard. Pulse: irregular Pulmonary/Chest: Effort normal and breath sounds normal. No stridor. He has no wheezes. He has no rales. He exhibits no tenderness. Abdominal: Soft. Bowel sounds are normal. There is no tenderness. There is no rebound and no guarding. Musculoskeletal: Normal range of motion. He exhibits no edema or tenderness. Neurological: He is alert and oriented to person, place, and time. Coordination normal. Skin: Skin is warm and dry. No rash noted. He is not diaphoretic. Psychiatric: His behavior is normal. Diagnostics: I have independently visualized the following studies: EKG: A. Fib @ 88 bpm, norm axis, no LVH, no major ST seg changes CXR: no pul edema, no cardiomegaly LABS: Recent Results (from the past 24 hour(s)) BMP W/FASTING GLUCOSE Result Value Ref Range Glucose Fasting 110 (*) 65 - 99 mg/dL BUN 13 10 - 20 mg/dL Creatinine 0.73 (*) 0.80 - 1.50 mg/dL Sodium 142 135 - 145 mmol/L Potassium 3.7 3.5 - 5.0 mmol/L Chloride 105 98 - 107 mmol/L CO2 21 (*) 22 - 31 mmol/L Anion Gap 16 (*) 5 - 15 mmol/L Calcium 9.0 8.5 - 10.5 mg/dL Estimated GFR >60 >=60 PRO-BRAIN NATRIURETIC PEPTIDE Result Value Ref Range ProBNP 856 (*) <=125 pg/mL MAGNESIUM Result Value Ref Range Magnesium 0.76 0.69 - 1.07 mmol/L CARDIAC ENZYMES Result Value Ref Range Troponin-T 0.15 (*) <=0.03 ng/mL CK, Total 320 (*) 0 - 200 unit/L APTT Result Value Ref Range PTT 62 (*) 25 - 35 sec HEMOGRAM Result Value Ref Range WBC 10.8 (*) 4.0 - 10.0 x10(3)/mcL RBC 4.17 (*) 4.63 - 6.08 x10(6)/mcL Hemoglobin 13.5 (*) 13.7 - 17.5 gm/dL Hematocrit 38.2 (*) 40.0 - 51.0 % MCV 91.6 79.0 - 92.0 fL MCH 32.4 (*) 25.6 - 32.2 pg MCHC 35.3 32.0 - 36.5 gm/dL Platelets 171 145 - 370 x10(3)/mcL RDWSD 42.9 35.0 - 46.0 fL RDWCV 12.7 10.9 - 14.4 % MPV 11.2 9.0 - 12.0 fL DIFFERENTIAL, AUTOMATED Result Value Ref Range Neutrophils % 70.6 Neutr Abs (ANC) 7.65 (*) 1.50 - 6.30 x10(3)/mcL Lymphocytes % 17.9 Lymphocytes Abs 1.9 1.0 - 3.6 x10(3)/mcL Monocytes % 9.1 Monocyte Abs 1.0 0.2 - 1.0 x10(3)/mcL Eosinophils % 1.8 Eosinophils Abs 0.2 0.0 - 0.5 x10(3)/mcL Basophils % 0.4 Basophils Abs 0.0 0.0 - 0.2 x10(3)/mcL Immature Gran % 0.20 Rashida Gran Abs 0.02 0.00 - 0.05 x10(3)/mcL ASSESSMENT: 64 y/o M with PMH of HTN, HLD & spinal stenosis s/p prior lower back surgery 2000. Pt has a positive family h/o CAD, but he himself is not known to have any prior heart disease. He presents with a 1 day h/o palpitations, diaphoresis & chest pressure. Pt has been found to have nitrate responsive CP, 2mm anterior ST depressions & +Trop. Mr. Mohr will be admitted for further mgt of NSTEMI & A. Fib with RVR. TREATMENT PLAN: 1. Newly Diagnosed A. Fib with RVR -CHADS 2 Vasc =2 (Age+HTN) -TSH = -Potential precipitants for rapid A. Fib include coronary ischemia vs possible VTE given the h/o previous prolonged travel over the past 2 mths. -At 18:17 pt converted to NSR @ 90 bpm on his own -Cont Rate control with Lopressor 25 mg po q 6h -Will discuss options for Anticoagulation in am. Keep Heparin gtt + ASA for now -For EP consult in am -Check D-dimer & get echo to r/o LA dilation vs mitral valve disease 2. NSTEMI -EBER = 6 (age, 3 risk factors, +Trop, EKG changes, chest pain x2, ASA use) -Trop T = 0.15, CK 320 -Even though there is a component of demand ischemia, acute plaque rupture is still a possibility -NSTE-ACS is a possibility based on nitrate responsive CP, EKG changes & +Trop -Cont ASA 81, Heparin gtt, Lopressor 25 po q6, Lipitor 80, NTG SL -Hold HCTZ/Losartan home med for now -For stress vs cath in am 3. HTN, HLD -Cont Lopressor 25 q6h & Lipitor 80 Provider: Jeronimo Siu MD Provider #: 12/23/2014 documented in this encounter Miscellaneous Notes Consult Note - Kathryn Mera RN - 12/25/2014 11:25 AM EDT Cardiac Rehabilitation Inpatient Evaluation Primary Cardiac Diagnosis: NSTEMI, s/p LAD stent Cardiac Risk Factors: Smoking: no Overweight: no Hyperlipidemia: denies Sedentary: no HTN: yes Family history: yes DM: no Patient Education: Reviewed cardiac cath findings, implications of coronary artery disease, managingangina and risk factor modification with pt and . Given parameters for home exercise. He walks 3miles ~ 3xweek in [place] in winter months; no sustained walking while in [place] Just golfs. Mediterranean diet guidelines briefly reviewed. Phase II Referral: Participation in the outpatient cardiac rehabilitation program at [facility] was discussed. Patient agrees to a referral to this program. The referral will be sent at discharge and the patient should be contacted by the Program within 1- 2 weeks from discharge. Activity Summary: By discharge, patient will be able to perform self care, walk 5-7 minutes and go up and down stairs without signs or symptoms of ischemia. Activity Baseline Response Symptoms/Comments 6-7walk HR 66 84 vanna well 13 stairs BP 145/67 148/78 O2 Sat 98 100 ECG nsr nsr Plan of Care - Zay Kaplan RN - 12/25/2014 10:21 AM EDT Problem: General Plan of Care Goal: Plan of Care Review 12/24/14 0605 12/25/14 0700 Plan of Care Review Plan of Care Outcome Status ongoing (interventions implemented as appropriate) -- Progress improving -- Coping/Psychosocial Response Interventions Plan of Care Reviewed with -- patient Goal: Individualization and Mutuality 12/24/14 1200 Mutuality/Individual Preferences What anxieties, fears or concerns do you have about your health or care? none What questions do you have about your health or care? none What information would help us give you more personalized care? none Goal: Fall Prevention-Safe Patient Handling 12/25/14 0700 12/25/14 1017 Safety Interventions Safety Precautions/Fall Reduction supervised activity;truck safety inspector;room near unit station;nonskid shoes/slippers when out of bed;low bed;lighting adjusted for task/safety;family at bedside -- Musculoskeletal Interventions Activity/Level of Assistance up in room;independently -- Positioning independent -- Self-Care Promotion -- independence encouraged while providing assistance Arthur Fall Risk History of Falling 0 -- Secondary Diagnosis 15 -- Ambulatory Aids 0 -- Intravenous Therapy/Heparin/Saline Lock 20 -- Gait/Transferring 0 -- Mental Status 0 -- Score 35 -- OTHER Arthur Fall Risk Med -- Goal: Infection Control 12/25/14 07 Safety Interventions Isolation Precautions standard precautions maintained Infection Prevention bronchial hygiene promoted;environmental surveillance;hydration promoted;nutrition promoted;promote handwashing;rest/sleep promoted Coping/Psychosocial Response Interventions Counseling calming techniques promoted;emotional support provided;verbalization of feelings encouraged;understanding of situation facilitated;relaxation techniques promoted;reassurance provided Goal: Discharge Needs Assessment 12/24/14 1539 12/25/14 1017 Discharge Needs Assessment Concerns to be Addressed -- discharge planning concerns Equipment Needed After Discharge none -- Self-Care Equipment Currently Used at Home none -- Problem: Pain, Acute (Adult, Obstetrics) Intervention: Pain Management Interventions 12/25/14 1017 Pain/Comfort Interventions Pain Management Interventions relaxation promoted Problem: Cardiac Catheterization with/without PCI (Adult) Intervention: Hemodynamic Stabilization 12/25/14 07 Cardiac Interventions Hemodynamic Stabilization antihypertensive medication management Intervention: Dysrhythmia Management 12/25/14 07 Cardiac Interventions Dysrhythmia Management dysrhythmia medication management Intervention: Contrast Induced Nephropathy Management 12/25/14 07 Genitourinary Interventions Contrast Induced Nephropathy Management fluids promoted Intervention: Fluid Management 12/25/14 07 Nutrition Interventions Fluid Management fluids promoted Goal: Signs and symptoms of listed potential problems will be absent or manageable (reference (Cardiac Catheterization with/without PCI (Adult)) CPG) 12/25/14 0151 Cardiac Catheterization with/without PCI Problems Assessed (Cardiac Catheterization with/without PCI) all Problems Present (Cardiac Catheterization with/without PCI) none Comments: OUTCOME EVALUATION NOTE: OUTCOME SUMMARY: Alert and oriented. Pt had uneventful day. Denies pain, or other discomfort during the shift. VSS. Rgroin cath site d/c/i. Pt received discharge order. Pt and his given postop cardiac cath site management information, CAD information, plavix education, coumadin and nitro education and AVS via verbal and handout. Pt verbalized understanding of cardiac cath site management information, CAD information, plavix education, coumadin and nitro education and AVS. D/C IV and tele. Plan of Care - Kyle Lackey RN - 12/25/2014 6:16 AM EDT Problem: General Plan of Care Goal: Plan of Care Review Outcome: Ongoing (Interventions Implemented as Appropriate) 12/24/1460412/24/141952 Plan of Care Review Plan of Care Outcome Status ongoing (interventions implemented as appropriate) -- Progress improving -- Coping/Psychosocial Response Interventions Plan of Care Reviewed with -- patient Goal: Individualization and Mutuality Outcome: Ongoing (Interventions Implemented as Appropriate) 12/24/14 1200 Mutuality/Individual Preferences What anxieties, fears or concerns do you have about your health or care? none What questions do you have about your health or care? none What information would help us give you more personalized care? none Goal: Fall Prevention-Safe Patient Handling Outcome: Ongoing (Interventions Implemented as Appropriate) 12/24/1479912/24/141952 Safety Interventions Safety Precautions/Fall Reduction -- commode/urinal/bedpan at bedside;environmental modification;fall reduction program maintained;lighting adjusted for task/safety;low bed;nonskid shoes/slippers when out of bed Musculoskeletal Interventions Activity/Level of Assistance -- up ad shun Positioning -- independent Self-Care Promotion independence encouraged while providing assistance -- Arthur Fall Risk History of Falling -- 0 Secondary Diagnosis -- 15 Ambulatory Aids -- 0 Intravenous Therapy/Heparin/Saline Lock -- 20 Gait/Transferring -- 0 Mental Status -- 0 Score -- 35 OTHER Arthur Fall Risk -- Med Goal: Infection Control Outcome: Ongoing (Interventions Implemented as Appropriate) 12/24/1479912/24/141952 Safety Interventions Isolation Precautions -- standard precautions maintained Infection Prevention -- bronchial hygiene promoted;environmental surveillance;hydration promoted;nutrition promoted;promote handwashing;rest/sleep promoted Coping/Psychosocial Response Interventions Counseling calming techniques promoted;emotional support provided;relaxation techniques promoted;reassurance provided;understanding of situation facilitated;verbalization of feelings encouraged -- Goal: Discharge Needs Assessment Outcome: Ongoing (Interventions Implemented as Appropriate) 12/23/14195612/24/14 1200 12/24/14 1539 Discharge Needs Assessment Concerns to be Addressed no discharge needs identified -- -- Readmission Within the Last 30 Days -- -- no previous admission in last 30 days Equipment Needed After Discharge -- -- none Self-Care Equipment Currently Used at Home -- -- none Living Environment Transportation Available -- family or friend will provide;car -- Problem: Cardiac Catheterization with/without PCI (Adult) Goal: Signs and symptoms of listed potential problems will be absent or manageable (reference (Cardiac Catheterization with/without PCI (Adult)) CPG) Outcome: Ongoing (Interventions Implemented as Appropriate) 12/25/14 0151 Cardiac Catheterization with/without PCI Problems Assessed (Cardiac Catheterization with/without PCI) all Problems Present (Cardiac Catheterization with/without PCI) none Comments: OUTCOME EVALUATION NOTE: OUTCOME SUMMARY: Pt had uneventful night. R groin site neg. Palpable pulses in R foot. VSS. Pt did abby down to 39 but was asymptomatic. PLAN MOVING FORWARD: Probable d/c in AM 12/25 INDIVIDUALIZED FALL PREVENTION: Call rush within reach. Pt rings appropriately. See flow sheet for additional documented safety measures taken. Assistance: Independent Supervision: 24 hours Surveillance: Hourly purposeful rounding CPG OUTCOME EVALUATION: Pt skin intact. Pt denied pain throughout shift. Pt remained free of falls. Pt asymptomatic to dysthymias. Plan of Care - Zay Kaplan RN - 12/24/2014 3:40 PM EDT Problem: General Plan of Care Goal: Plan of Care Review 12/24/14 0605 12/24/14 0800 Plan of Care Review Plan of Care Outcome Status ongoing (interventions implemented as appropriate) -- Progress improving -- Coping/Psychosocial Response Interventions Plan of Care Reviewed with -- patient;spouse Goal: Individualization and Mutuality 12/24/14 1200 Mutuality/Individual Preferences What anxieties, fears or concerns do you have about your health or care? none What questions do you have about your health or care? none What information would help us give you more personalized care? 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;room near unit station;nonskid shoes/slippers when out of bed;low bed;lighting adjusted for task/safety;family at bedside -- Musculoskeletal Interventions Activity/Level of Assistance -- bedrest with bathroom privileges Positioning independent -- Self-Care Promotion independence encouraged while providing assistance -- Arthur Fall Risk History of Falling 0 -- Secondary Diagnosis 15 -- Ambulatory Aids 0 -- Intravenous Therapy/Heparin/Saline Lock 20 -- Gait/Transferring 0 -- Mental Status 0 -- Score 35 -- OTHER Arthur Fall Risk Med -- Goal: Infection Control 12/24/14 0800 Safety Interventions Isolation Precautions standard precautions maintained Infection Prevention bronchial hygiene promoted;environmental surveillance;hydration promoted;nutrition promoted;promote handwashing;rest/sleep promoted Coping/Psychosocial Response Interventions Counseling calming techniques promoted;emotional support provided;relaxation techniques promoted;reassurance provided;understanding of situation facilitated;verbalization of feelings encouraged Goal: Discharge Needs Assessment 12/23/14 1957 12/24/14 1200 12/24/14 1539 Discharge Needs Assessment Concerns to be Addressed no discharge needs identified -- -- Readmission Within the Last 30 Days -- -- no previous admission in last 30 days Equipment Needed After Discharge -- -- none Self-Care Equipment Currently Used at Home -- -- none Living Environment Transportation Available -- family or friend will provide;car -- Comments: OUTCOME EVALUATION NOTE: OUTCOME SUMMARY: Pt alert and oriented. VSS. Denies chest pain or other discomfort during the shift. Pt went for cardiac cath today and went well - refer to results review. R groin cath site d/c/i, no hemotoma noted, pulses present. PLAN MOVING FORWARD: Continue to monitor for bleeding and other complication. INDIVIDUALIZED FALL PREVENTION: Assistance: Independent Supervision: Intermittent Surveillance: Hourly rounding and PRN CPG GOAL OUTCOME EVALUATION: Pt continued to make progress toward goals and discharge. Plan of Care - Madalyn Becker RN - 12/24/2014 6:12 AM EDT Problem: General Plan of Care Goal: Plan of Care Review Outcome: Ongoing (Interventions Implemented as Appropriate) 12/24/14 0605 Plan of Care Review Plan of Care Outcome Status ongoing (interventions implemented as appropriate) Progress improving Coping/Psychosocial Response Interventions Plan of Care Reviewed with patient;spouse Goal: Individualization and Mutuality Outcome: Ongoing (Interventions Implemented as Appropriate) Goal: Fall Prevention-Safe Patient Handling Outcome: Ongoing (Interventions Implemented as Appropriate) 12/23/14195612/23/14199912/23/14 2100 Safety Interventions Safety Precautions/Fall Reduction -- commode/urinal/bedpan at bedside;fall reduction program maintained;lighting adjusted for task/safety;low bed;nonskid shoes/slippers when out of bed;supervised activity -- Musculoskeletal Interventions Activity/Level of Assistance -- -- bedrest with bathroom privileges Positioning -- -- independent Self-Care Promotion independence encouraged while providing assistance -- -- Arthur Fall Risk History of Falling -- 0 -- Secondary Diagnosis -- 15 -- Ambulatory Aids -- 0 -- Intravenous Therapy/Heparin/Saline Lock -- 20 -- Gait/Transferring -- 0 -- Mental Status -- 0 -- Score -- 35 -- OTHER Arthur Fall Risk -- Med -- Goal: Infection Control Outcome: Ongoing (Interventions Implemented as Appropriate) 12/23/14171412/23/14199912/24/14604 Safety Interventions Isolation Precautions -- -- standard precautions maintained Infection Prevention -- environmental surveillance -- Coping/Psychosocial Response Interventions Counseling calming techniques promoted;emotional support provided;goal setting facilitated;reassurance provided;relaxation techniques promoted;understanding of situation facilitated;verbalization of feelings encouraged -- -- Goal: Discharge Needs Assessment Outcome: Ongoing (Interventions Implemented as Appropriate) 12/23/141956 Discharge Needs Assessment Concerns to be Addressed no discharge needs identified Problem: Pain, Acute (Adult, Obstetrics) Goal: Identify Signs and Symptoms and Related Risk Factors Signs and symptoms and related risk factors are identified upon initiation of Human Response Clinical Practice Guideline (CPG) Outcome: Outcome (s) achieved Date Met: 12/24/14 Goal: Acceptable Pain Control/Comfort Level Patient will demonstrate the desired outcomes. Outcome: Outcome (s) achieved Date Met: 12/24/14 12/24/14604 Pain, Acute (Adult, Obstetrics) Acceptable Pain Control/Comfort Level achieves outcome Comments: OUTCOME EVALUATION NOTE: OUTCOME SUMMARY: Pt rested well overnight, with no c/o chest discomfort or SOB. Will continue to monitor. PLAN MOVING FORWARD: NPO for possible PCI. Continue heparin gtt. INDIVIDUALIZED FALL PREVENTION: Assistance: Independent Supervision: Rings call light appropriately Surveillance: Hourly rounding CPG OUTCOME EVALUATION: documented in this encounter Plan of Treatment Scheduled Orders Name Type Priority Associated Diagnoses Order S chedule EKG 12 Lead ECG STAT Unstable angina One Time for 1 Occurrences starting 12/23/2014 unti l 12/23/2014 Scheduled Referrals Name Type Priority Associated Diagnoses Order S chedule Referral to Outpatient Referral Routine Non-ST elevation Orde red: Cardiac Rehab myocardial 12/25/2014 infarction (NSTEMI) documented as of this encounter Procedures Procedure Name Priority Date/Time Associated Diagnosis Comme nts LAB SCAN 12/26/2014 12:00 AM EDT DIGITAL RETOUCHER SCAN 12/26/2014 12:00 AM EDT CARDIAC CATH SCAN 12/26/2014 12:00 AM EDT EKG 12-LEAD Routine 12/25/2014 11:51 Unstable angina Results for this AM EDT procedure are i n the results section. BMP W/FASTING GLUCOSE Routine 12/25/2014 3:43 Res ults for this AM EDT procedure are i n the results section. HEMOGRAM Routine 12/25/2014 3:43 Results for this AM EDT procedure are i n the results section. DIFFERENTIAL, AUTOMATED Routine 12/25/2014 3:43 R esults for this AM EDT procedure are i n the results section. CARDIAC ENZYMES Routine 12/25/2014 3:43 Results f or this ([facility]) AM EDT procedure are i n the results section. CBC (WITH DIFF) Routine 12/25/2014 3:43 AM EDT CARDIAC ENZYMES STAT 12/24/2014 5:45 Results f or this ([facility]) PM EDT procedure are i n the results section. EKG 12-LEAD Routine 12/24/2014 4:42 Unstable angina Results f or this PM EDT procedure are i n the results section. CARDIAC CATHETERIZATION Routine 12/24/2014 4:03 R esults for this PM EDT procedure are i n the results section. APTT Routine 12/24/2014 12:23 Results for this PM EDT procedure are i n the results section. URINALYSIS WITH REFLEX Routine 12/24/2014 10:38 R esults for this CULTURE AM EDT procedure are i n the results section. ECHOCARDIOGRAM Routine 12/24/2014 10:02 Atrial fibrillation Re sults for this TRANSTHORACIC(LEB) AM EDT with RVR procedure are in Unstable angina the results section. BMP W/FASTING GLUCOSE Routine 12/24/2014 6:27 Res ults for this AM EDT procedure are i n the results section. HEMOGRAM Routine 12/24/2014 6:27 Results for this AM EDT procedure are i n the results section. DIFFERENTIAL, AUTOMATED Routine 12/24/2014 6:27 R esults for this AM EDT procedure are i n the results section. CARDIAC ENZYMES Routine 12/24/2014 6:27 Results f or this ([facility]) AM EDT procedure are i n the results section. APTT Routine 12/24/2014 6:27 Results for this AM EDT procedure are i n the results section. PROTHROMBIN TIME Routine 12/24/2014 6:27 Results for this AM EDT procedure are i n the results section. CBC (WITH DIFF) Routine 12/24/2014 6:27 AM EDT TRIGLYCERIDE Routine 12/24/2014 6:27 Results for this AM EDT procedure are i n the results section. TSH Routine 12/24/2014 6:27 Results for this AM EDT procedure are i n the results section. PHOSPHORUS Routine 12/24/2014 6:27 Results for this AM EDT procedure are i n the results section. MAGNESIUM Routine 12/24/2014 6:27 Results for this AM EDT procedure are i n the results section. LDL CHOLESTEROL, DIRECT Routine 12/24/2014 6:27 R esults for this AM EDT procedure are i n the results section. HDL/CHOL PROFILE Routine 12/24/2014 6:27 Results for this AM EDT procedure are i n the results section. HEMOGLOBIN A1C Routine 12/24/2014 6:27 Results fo r this AM EDT procedure are i n the results section. HEPATIC FUNCTION PANEL Routine 12/24/2014 6:27 Re sults for this AM EDT procedure are i n the results section. CARDIAC ENZYMES STAT 12/24/2014 12:30 Results for this ([facility]) AM EDT procedure are i n the results section. APTT STAT 12/24/2014 12:30 Results for this AM EDT procedure are i n the results section. XR CHEST PA AND LATERAL Routine 12/23/2014 8:56 R esults for this PM EDT procedure are i n the results section. BMP W/FASTING GLUCOSE STAT 12/23/2014 6:39 Res ults for this PM EDT procedure are i n the results section. HEMOGRAM Routine 12/23/2014 6:39 Results for this PM EDT procedure are i n the results section. DIFFERENTIAL, AUTOMATED Routine 12/23/2014 6:39 R esults for this PM EDT procedure are i n the results section. D-DIMER, QUANTITATIVE STAT 12/23/2014 6:39 Res ults for this PM EDT procedure are i n the results section. CARDIAC ENZYMES STAT 12/23/2014 6:39 Results f or this ([facility]) PM EDT procedure are i n the results section. APTT STAT 12/23/2014 6:39 Results for this PM EDT procedure are i n the results section. CBC (WITH DIFF) Routine 12/23/2014 6:39 PM EDT PRO-BRAIN NATRIURETIC STAT 12/23/2014 6:39 Res ults for this PEPTIDE PM EDT procedure are i n the results section. MAGNESIUM STAT 12/23/2014 6:39 Results for this PM EDT procedure are i n the results section. EKG 12-LEAD STAT 12/23/2014 5:24 Unstable angina Results f or this PM EDT procedure are i n the results section. documented in this encounter Results SCAN DOC: DIGITAL RETOUCHER (12/26/2014 12:00 AM EDT) Narrative This result has an attachment that is no t available. Scanning Provider MEDIA MGR SCAN EXT ORDR/RSLT SCAN DOC: CARDIAC CATH (12/26/2014 12:00 AM EDT) Narrative This result has an attachment that is no t available. Scanning Provider MEDIA MGR SCAN EXT ORDR/RSLT SCAN DOC: LAB (12/26/2014 12:00 AM EDT) Narrative This result has an attachment that is no t available. Scanning Provider MEDIA MGR SCAN EXT ORDR/RSLT EKG 12 Lead (12/25/2014 11:51 AM EDT) Component Value Ref Range Test Analysis Performed Pathologis t Method Time At Signature Ventricular rate 54 BPM MUSE SYSTEM Atrial Rate 54 BPM MUSE SYSTEM P-R Interval 130 ms MUSE SYSTEM QRS Duration 80 ms MUSE SYSTEM Q-T Interval 400 ms MUSE SYSTEM QTC Calculated 379 ms MUSE SYSTEM (Bezet) Calculated P [place] 70 degrees MUSE SYSTEM Calculated R [place] -3 degrees MUSE SYSTEM Calculated T [place] 21 degrees MUSE SYSTEM INTERPRETATION Sinus bradycardia with sinus arrhythmia MUSE SYSTEM Otherwise normal ECG When compared with ECG of 24-DEC-2014 16:42, No significant change was found Confirmed by MD Angelic, Ronnie Capone ([id number]) on 12/25/2014 12:39:41 PM Specimen Anatomical Collection Method Collection Time Receive d Time (Source) Location / / Volume Laterality 12/25/2014 11:51 12/25/2014 AM EDT 12:39 PM EDT Leon Phoenix MD ECG ORDERABLES Performing Organization Address City/State/ZIP Code Phon e Number MUSE SYSTEM (ABNORMAL) BMP w/fasting Glucose (12/25/2014 3:43 AM EDT) athologist Signature Glucose 100 (H) 65 - 99 CERNER Fasting mg/dL MILLENNIUM Comment: ?Fasting* Glucose Interpretive C riteria Normal ?65-99 mg/dL Impaired Fasting glucose ?100-125 mg/dL Consistent with Diabetes Mellitus ? >or= 126 mg/dL *Fasting is defined as no caloric intake for at least 8 hours In the absence of unequivocal hypergly cemia a plasma glucose value of >or= 126 mg/dL should be repeated on a subseq u day. Diagnosis and Classification of Diabetes Mellitus, Position Statement from the [place] [employer]. ??Diabete s Care, Volume 33, Supplement 1, Jun 2009 BUN 16 10 - 20 mg/dL CERNER MILLENNIU M Creatinine 0.93 0.80 - 1.50 mg/dL CERNER MILL ENNIUM Comment: Please note that the pediatric reference intervals supplied above were not validated at [facility]. Results from pediatri c patients should be interpreted in conjunction to the patient's age, height and muscle mass. Sodium 141 135 - 145 mmol/L CERNER CHRISTINE NIUM Potassium 4.1 3.5 - 5.0 mmol/L CERNER CHRISTINE NIUM Comment: Please note: ??Patients with WBC >100,00 0 may have falsely elevated Potassium levels. ??For accurate Potassium quantif ication in these patients send serum separator tube (gold top) for subsequent determinations. ??Contact the Clinical Chemistry Laboratory if there are any qu estions. Chloride 106 98 - 107 mmol/L CERNER MILLENN IUM CO2 24 22 - 31 mmol/L CERNER MILLENNI UM Anion Gap 11 5 - 15 mmol/L CERNER MILLENNIU M Calcium 9.0 8.5 - 10.5 mg/dL CERNER CHRISTINE NIUM Estimated GFR >60 >=60 CERNER MILLENNIU M Comment: This estimated GFR (eGFR) value was calc ulated using the MDRD equation which has been validated on patients between t he ages of 18 and 70. The MDRD should not be used to assess kidney function in patients < 18 years of age or in patients with extremes of body mass, or in patients with acute kidney failure. This value should be multiplied by 1.2 f or patients. For further information please copy and past e the following links into your internet browser. http://[employer] [place]/DHnkdep http://[employer] [place]/DHMCnkf Specimen Anatomical Collection Method Collection Time Receive d Time (Source) Location / / Volume Laterality Blood specimen 12/25/2014 3:43 AM 015 3:57 (specimen) EDT AM EDT Resulting Agency Comment Spec In Lab Leon Phoenix MD CHEMISTRY ORDERABLES Performing Organization Address City/State/ZIP Code Phon e Number [place] [phone] CERNER MILLENNIUM Differential, Automated (12/25/2014 3:43 AM EDT) P athologist Signature Neutrophils % 59.0 % CERNER MILLENNIUM Neutr Abs (ANC) 4.18 1.50 - CERNER 6.30 MILLENNIUM x10(3)/mcL Lymphocytes % 24.8 % CERNER MILLENNIUM Lymphocytes Abs 1.8 1.0 - 3.6 CERNER x10(3)/mcL MILLENNIUM Monocytes % 11.5 % CERNER MILLENNIUM Monocyte Abs 0.8 0.2 - 1.0 CERNER x10(3)/mcL MILLENNIUM Eosinophils % 3.8 % CERNER MILLENNIUM Eosinophils Abs 0.3 0.0 - 0.5 CERNER x10(3)/mcL MILLENNIUM Basophils % 0.6 % CERNER MILLENNIUM Basophils Abs 0.0 0.0 - 0.2 CERNER x10(3)/mcL MILLENNIUM Immature Gran % 0.30 % CERNER MILLENNIUM Comment: Immature granulocytes(IG's)percentage an d absolute count will include metamyelocytes, myelocytes, and promyelo cytes. Blood smears from CBCs yielding IG's will be scanned manually for concor dance. If this scan disagrees with the automated IG or if promyelocytes are not ed, a manual differential will be performed. Rashida Gran Abs 0.02 0.00 - 0.05 x10(3)/mcL CER NER MILLENNIUM Specimen Anatomical Collection Method Collection Time Receive d Time (Source) Location / / Volume Laterality Blood specimen 12/25/2014 3:43 AM 015 3:57 (specimen) EDT AM EDT Resulting Agency Comment Spec In Lab Jeronimo Siu MD HEMATOLOGY ORDERABLES Performing Organization Address City/State/[place] [address] CERNER MILLENNIUM (ABNORMAL) Hemogram (12/25/2014 3:43 AM EDT) P athologist Signature WBC 7.1 4.0 - 10.0 CERNER x10(3)/mcL MILLENNIUM RBC 4.08 (L) 4.63 - CERNER 6.08 MILLENNIUM x10(6)/mcL Hemoglobin 12.9 (L) 13.7 - CERNER 17.5 gm/dL MILLENNIUM Hematocrit 37.9 (L) 40.0 - CERNER 51.0 % MILLENNIUM MCV 92.9 (H) 79.0 - CERNER 92.0 fL MILLENNIUM MCH 31.6 25.6 - CERNER 32.2 pg MILLENNIUM MCHC 34.0 32.0 - CERNER 36.5 gm/dL MILLENNIUM Platelets 155 145 - 370 CERNER x10(3)/mcL MILLENNIUM RDWSD 43.3 35.0 - CERNER 46.0 fL MILLENNIUM RDWCV 12.9 10.9 - CERNER 14.4 % [facility] MPV 11.9 9.0 - 12.0 CERNER fL [facility] Specimen Anatomical Collection Method Collection Time Receive d Time (Source) Location / / Volume Laterality Blood specimen 12/25/2014 3:43 AM 015 3:57 (specimen) EDT AM EDT Resulting Agency Comment Spec In Lab Jeronimo Siu MD HEMATOLOGY ORDERABLES Performing Organization Address City/[facility] [place] [address] CERNER MILLENNIUM (ABNORMAL) Cardiac Enzymes (12/25/2014 3:43 AM EDT) athologist Signature Troponin-T 0.13 (H) <=0.03 CERNER ng/mL [facility] Comment: 0.03 ng/mL: Represents the 99th percenti le upper reference limit for normals. >0.03 ng/mL: Elevated cardiac troponin T level indicative of myocardial damage. Diagnosis of acute, evolving or recent M I requires a typical rise and gradual fall of cTnT with at least ONE of the fo llowing: a) Ischemic symptoms b) Development of pathologic Q waves on the ECG c) ECG changes indicative of eschemia (S -T segment elevation/depression) d) Coronary artery intervention Serial bloods should be obtained for khanh ting on admission, at 6 to 9 hrs and again at 12 to 24 hrs if earlier samples are negative and the clinical index of suspicion is high. Reference: [Myocardial infarction redefined? a consensus document of the Joint Society of Cardiology/[place] [employer] f [employer] Committee for the redefinition of myocardial infarction. ? ?Journal of the [place] [employer] of Cardiology 2000; 36: 959-969] CK, Total 109 0 - 200 unit/L [facility] UM Specimen Anatomical Collection Method Collection Time Receive d Time (Source) Location / / Volume Laterality Blood specimen 12/25/2014 3:43 AM 015 3:57 (specimen) EDT AM EDT Resulting Agency Comment Spec In Lab Leon Phoenix MD CHEMISTRY ORDERABLES Performing Organization Address City/[facility]/[place] [address] [facility] (ABNORMAL) Cardiac Enzymes (12/24/2014 5:45 PM EDT) P athologist Signature Troponin-T 0.11 (H) <=0.03 [facility] ng/mL [facility] Comment: 0.03 ng/mL: Represents the 99th percenti le upper reference limit for normals. >0.03 ng/mL: Elevated cardiac troponin T level indicative of myocardial damage. Diagnosis of acute, evolving or recent M I requires a typical rise and gradual fall of cTnT with at least ONE of the fo llowing: a) Ischemic symptoms b) Development of pathologic Q waves on the ECG c) ECG changes indicative of eschemia (S -T segment elevation/depression) d) Coronary artery intervention Serial bloods should be obtained for khanh ting on admission, at 6 to 9 hrs and again at 12 to 24 hrs if earlier samples are negative and the clinical index of suspicion is high. Reference: [Myocardial infarction redefined? a consensus document of the Joint Society of Cardiology/[employer] College o f [employer] Committee for the redefinition of myocardial infarction. ? ?Journal of the [employer] College of [employer]iology 2000; 36: 959-969] CK, Total 156 0 - 200 unit/L [facility] UM Specimen Anatomical Collection Method Collection Time Receive d Time (Source) Location / / Volume Laterality Blood specimen 12/24/2014 5:45 PM 015 6:01 (specimen) EDT PM EDT Resulting Agency Comment Spec In Lab Leon Phoenix MD CHEMISTRY ORDERABLES Performing Organization Address City/State/ZIP Code Phon e Number [place] [id number] TORI GAITANIUM EKG 12 Lead (12/24/2014 4:42 PM EDT) Component Value Ref Range Test Analysis Performed Pathologis t Method Time At Signature Ventricular rate 58 BPM MUSE SYSTEM Atrial Rate 58 BPM MUSE SYSTEM P-R Interval 140 ms MUSE SYSTEM QRS Duration 82 ms MUSE SYSTEM Q-T Interval 406 ms MUSE SYSTEM QTC Calculated 398 ms MUSE SYSTEM (Bezet) Calculated P [place] 62 degrees MUSE SYSTEM Calculated R [place] 7 degrees MUSE SYSTEM Calculated T [place] 38 degrees MUSE SYSTEM INTERPRETATION Sinus bradycardia with sinus arrhythmia MUSE SYSTEM Otherwise normal ECG When compared with ECG of 23-DEC-2014 17:24, Sinus rhythm has replaced Atrial fibrillation Vent. rate has decreased BY ??30 BPM T wave amplitude has increased in Anterior leads Confirmed by MD Atwood Peter A ([id number]) on 12/25/2014 6:33:41 AM Specimen Anatomical Collection Method Collection Time Receive d Time (Source) Location / / Volume Laterality 12/24/2014 4:42 PM 5 6:33 EDT AM EDT Leon Phoenix MD ECG ORDERABLES Performing Organization Address City/State/ZIP Code Phon e Number MUSE SYSTEM CARDIAC CATHETERIZATION (12/24/2014 4:03 PM EDT) Anatomical Region Laterality Modality Other Specimen (Source) Anatomical Location Collection Method / Collectio n Time Received Time / Laterality Volume Narrative 12/24/2014 5:14 PM EDT ?[facility] ? Cardiac Cathete rization/Intervention Report ? Patient Name: Marcin, Joshua Romero. ? Procedure Date: 12/24/2014 ? A #: [id number] ? Primary Physician: Leon García. ? Case #: [id number] ? File Name: [id number] ? Catheterization Order Number: [id number] ? [facility] ? Final Report [place], [place] ? Patient Name: ? Joshua Degroot Jason geron ?ID#: ?[id number] ? : ?1950 ? Procedure Date: ? December 24, 2014 ?Case #: ? [id number] ? Room: ? 1 ? Case Physician: ? Leon barr MFelton ?Start: ?14:36 ?Fellow: ? Usman crowley, M.D. ?Admission: ??12/23/2014 ? Discharge: ??12/25/2014 ? Referring Physician: ??Roberto Murdock ? Procedures: ?* Coronary Angiography ?* Left Heart Catheterization ?* Coronary Stent Insertion ?* Vascular Closure Device Deplo yment ?* Access Site Angiography ? History ?Joshua Mohr is a 64 yea r old man. He has hypertension and a ?family history of coronary antonio ry disease. The patient has ?hypercholesterolemia. He has a history of chest pain. The patient has a ?history of pre-syncope and atri al fibrillation/atrial flutter. He also ?has a history of an abnormal EK G and an abnormal echocardiogram. Prior to ?the initiation of this procedur e, the patient was designated as ASA Class ?III. ? Patient Status at Catheterization: ?The patient presented with: non -STEMI (w/i 7 days). Stokes ?Cardiovascular Society angina c lass was IV. This patient was on beta ?blockers and calcium cade blo ckers prior to the procedure. No stress or ?imaging studies were performed prior to this procedure ? Technique: ?A 6Fr sheath was inserted in th e right femoral artery utilizing the ?Seldinger technique. The left c oronary artery was injected utilizing a ?6Fr JL 4 catheter. A 6Fr JR 4 c atheter was used to inject the right ?coronary artery. Left ventricul ar pressure was performed with a 6Fr ?Angled pigtail catheter. Ryan ry stent insertion was performed and the ?equipment utilized will be desc ribed in the intervention summary section. ?Bivaluridin bolus 65mg and infu stefan 152mg/hr was administered. ?Intracoronary nitroglycerin was given during this case. A total of 200cc ?of Omnipaque were opened, 140cc of Omnipaque were administered and 60cc ?of Omnipaque were wasted. Radia tion: Fluoro time was 6.5 minutes, dose ?area product was 101,378 mGYcm2 and air kerma was 1,568 mGY. ?The patient received the follow ing medications prior to and during the ?procedure: Aspirin (any), Clopi dogrel, Unfractionated Heparin (any) and ?Bivalirudin. ? Hemodynamics: ?Left Heart Pressures ? Resting: ? Syst D iast ? EDP ?a ?v ? m ?Ao 100 ?? 53 ?71 ?LV 116 ? 19 ? Post Contrast: ? Syst D iast ? EDP ?a ?v ? m ?Ao 120 ?? 64 ?89 ?LV 112 ? 17 ? Coronary Angiography: ?Dominance: Right ?Left Main ? The left main was normal . ?Left Anterior Descending ? There was mild diffuse d isease of the entire vessel segment of the ? left anterior descending artery (LAD). ??The LAD was large. ??The ? proximal segment of the LAD had an eccentric and hazy single ? discrete 75% stenosis. ? There was a 70% single d iscrete stenosis of the proximal segment of ? the first diagonal branc h (Diagonal 1) of the LAD. ??The Diagonal 1 ? was moderate in size. ? There was a 50% single d iscrete stenosis of the ostial segment of ? the second diagonal bran ch (Diagonal 2) of the LAD. ??The Diagonal 2 ? was moderate in size. ?Left Circumflex ? There was mild diffuse d isease of the entire vessel segment of the ? first obtuse marginal br anch (OM1) of the left circumflex (LCX). ? The OM1 was moderate in size. ?Right Coronary Artery ? There was mild diffuse d isease of the entire vessel segment of the ? right coronary artery (R CA). ??The RCA was large. ??The proximal ? segment of the RCA had a long segmental 35% stenosis. ? Catheter induced spasm p roximal RCA. ? Indication for Intervention: ?Coronary intervention was indic ated for treatment of a critical lesion ?post a myocardial infarction. L eft ventricular Ejection Fraction was ?estimated at 55 percent. The pr iority for the procedure was Urgent. The ?NCDR indication for the procedu re was PCI for high risk Non-STEMI or ?unstable angina. ? Intervention Summary: ?Left Anterior Descending Artery ? Proximal 75% ? Stent insertion was performed on the 75% stenosis in the ? proximal segmen t of the LAD. This was a de deion lesion. ? According to th e ACC/AHA classification system, this lesion ? was a type B2 h igh risk lesion. Primary prevention of ? restenosis was the indication for stent insertion. This was ? the culprit les ion. Vessel flow pre intervention was EBER 3. ? Stent insertion was accomplished through a 6 Fr. EBU 3.5 ? guide. ??A ariel ounted 3.00 x 09 mm Resolute (CHIQUITA) was deployed ? with a maximum inflation pressure of 14 atmospheres. ? Following stent deployment, the lesion was dilated using a ? 3.25mm NC Eupho ra 08 mm balloon with a maximum inflation ? pressure of 18 atmospheres. ? The final outco me was defined as successful. There was no ? residual stenos is following this intervention. The final EBER ? flow was 3. ? Small distal ed ge dissection noted on review. ? Vascular Access: ?Vascular Access Angiogram: ? A selective angiogram at the right femoral artery revealed no ? significant obstructive disease. ?Vascular Access Management: ? A 6 Fr Perclose was depl oyed at the right femoral artery access ? site. This device was jernigan ccessful. ? Conclusions: ?* One vessel coronary artery di sease (LAD) ?* Elevated left ventricular end diastolic pressure ?* Successful stent insertion of the proximal LAD lesion ?* Drug eluting stent (CHIQUITA) impl anted. ? Complications/Events: ?The patient had no complication s during these procedures. ? Comments: ?Drug eluting stent (CHIQUITA) implan orlin. 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 Continue ASA 81 m g po daily, clopidogrel 75 mg po daily x ?12 mo. ?The attending physician was presen t for the entire procedure. ?Dr. Leon García M.D. perfor med the coronary angiography, left heart ?catheterization, stent insertion-c oronary, access site angiography and ?vascular closure device. ? Leon García M.D. ? Electronically Signed by: Leon oro M.D. ? Report Finalized: 12/24/2014 ??17:07 ? Report Last Ammended: 05/02/2015 ??13:45 ? Procedure Note Leon García MD - 05/02/2015Format ting of this note might be different from the original. [facility] Cardiac Catheterization/Intervention Re port Patient Name: Joshua Mohr Procedure Date: 12/24/2014 A #: [id number] Primary Physician: Leon García Case #: [id number] File Name: [id number] Catheterization Order Number: [id number] [facility] Final Report [place], [place] Patient Name: Joshua Mohr ID#: [id number] : 1950 Procedure Date: December 24, 2014 Case #: [id number] Room: 1 Case Physician: Leon García M.D. Start: 14:36 Fellow: Usman Castro M.D. Admission: 12/23/2014 Discharge: 12/25/2014 Referring Physician: Keysha Murdock Procedures: * Coronary Angiography * Left Heart Catheterization * Coronary Stent Insertion * Vascular Closure Device Deployment * Access Site Angiography History Joshua Mohr is a 64 year old ma n. He has hypertension and a family history of coronary artery disea se. The patient has hypercholesterolemia. He has a history of chest pain. The patient has a history of pre-syncope and atrial fibri llation/atrial flutter. He also has a history of an abnormal EKG and an abnormal echocardiogram. Prior to the initiation of this procedure, the p atient was designated as ASA Class III. Patient Status at Catheterization: The patient presented with: non-STEMI ( w/i 7 days). Stokes Cardiovascular Society angina class was IV. This patient was on beta blockers and calcium cade blockers pr ior to the procedure. No stress or imaging studies were performed prior to this procedure Technique: A 6Fr sheath was inserted in the right femoral artery utilizing the Seldinger technique. The left coronary artery was injected utilizing a 6Fr JL 4 catheter. A 6Fr JR 4 catheter was used to inject the right coronary artery. Left ventricular press ure was performed with a 6Fr Angled pigtail catheter. Coronary stent insertion was performed and the equipment utilized will be described in the intervention summary section. Bivaluridin bolus 65mg and infusion 152 mg/hr was administered. Intracoronary nitroglycerin was given d uring this case. A total of 200cc of Omnipaque were opened, 140cc of Omni paque were administered and 60cc of Omnipaque were wasted. Radiation: Fl uoro time was 6.5 minutes, dose area product was 101,378 mGYcm2 and air kerma was 1,568 mGY. The patient received the following medi cations prior to and during the procedure: Aspirin (any), Clopidogrel, Unfractionated Heparin (any) and Bivalirudin. Hemodynamics: Left Heart Pressures Resting: Syst Diast EDP a v m Ao 100 53 71 LV 116 19 Post Contrast: Syst Diast EDP a v m Ao 120 64 89 LV 112 17 Coronary Angiography: Dominance: Right Left Main The left main was normal. Left Anterior Descending There was mild diffuse disease of the e ntire vessel segment of the left anterior descending artery (LAD). The LAD was large. The proximal segment of the LAD had an ecce ntric and hazy single discrete 75% stenosis. There was a 70% single discrete stenosi s of the proximal segment of the first diagonal branch (Diagonal 1) of the LAD. The Diagonal 1 was moderate in size. There was a 50% single discrete stenosi s of the ostial segment of the second diagonal branch (Diagonal 2) of the LAD. The Diagonal 2 was moderate in size. Left Circumflex There was mild diffuse disease of the e ntire vessel segment of the first obtuse marginal branch (OM1) of t he left circumflex (LCX). The OM1 was moderate in size. Right Coronary Artery There was mild diffuse disease of the e ntire vessel segment of the right coronary artery (RCA). The RCA wa s large. The proximal segment of the RCA had a long segmental 35% stenosis. Catheter induced spasm proximal RCA. Indication for Intervention: Coronary intervention was indicated for treatment of a critical lesion post a myocardial infarction. Left vent ricular Ejection Fraction was estimated at 55 percent. The priority f or the procedure was Urgent. The NCDR indication for the procedure was P CI for high risk Non-STEMI or unstable angina. Intervention Summary: Left Anterior Descending Artery Proximal 75% Stent insertion was performed on the 75 % stenosis in the proximal segment of the LAD. This was a de deion lesion. According to the ACC/AHA classification system, this lesion was a type B2 high risk lesion. Primary prevention of restenosis was the indication for stent insertion. This was the culprit lesion. Vessel flow pre int ervention was EBER 3. Stent insertion was accomplished throug h a 6 Fr. EBU 3.5 guide. A premounted 3.00 x 09 mm Resolu te (CHIQUITA) was deployed with a maximum inflation pressure of 14 atmospheres. Following stent deployment, the lesion was dilated using a 3.25mm NC Euphora 08 mm balloon with a maximum inflation pressure of 18 atmospheres. The final outcome was defined as succes sful. There was no residual stenosis following this interv ention. The final EBER flow was 3. Small distal edge dissection noted on r eview. Vascular Access: Vascular Access Angiogram: A selective angiogram at the right femo ral artery revealed no significant obstructive disease. Vascular Access Management: A 6 Fr Perclose was deployed at the [facility] femoral artery access site. This device was successful. Conclusions: * One vessel coronary artery disease (L AD) * Elevated left ventricular end diastol ic pressure * Successful stent insertion of the pro ximal LAD lesion * Drug eluting stent (CHIQUITA) implanted. Complications/Events: The patient had no complications during these procedures. Comments: Drug eluting stent (CHIQUITA) implanted. 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 Continue ASA 81 mg po ravi ly, clopidogrel 75 mg po daily x 12 mo. The attending physician was present for the entire procedure. Dr. Leon García M.D. performed t he coronary angiography, left heart catheterization, stent insertion-ryan ry, access site angiography and vascular closure device. Leon García M.D. Electronically Signed by: Leon oro M.D. Report Finalized: 12/24/2014 17:07 Report Last Ammended: 05/02/2015 13:45 Leon Phoenix MD CARDIAC CATH ORDERABLES (ABNORMAL) APTT (12/24/2014 12:23 PM EDT) athologist Signature PTT 114 (H) 25 - 35 sec CERNER MILLENNIUM Comment: Recommended therapeutic PTT range for fu ll dose unfractionated heparin is 80-114 seconds. Specimen Anatomical Collection Method Collection Time Receive d Time (Source) Location / / Volume Laterality Blood specimen 12/24/2014 12:23 5 (specimen) PM EDT 12:41 PM EDT Resulting Agency Comment Spec In Lab Leon Phoenix MD HEMATOLOGY ORDERABLES Performing Organization Address City/State/Z[place] [address] CERNER MILLENNIUM (ABNORMAL) Urinalysis with microscopic (12/24/2014 10:38 AM EDT) [facility] gist Method Time Signature Glucose UA Negative Negative CERNER mg/dL MILLENNIUM Protein UA Negative Negative CERNER mg/dL MILLENNIUM Bilirubin UA Negative Negative CERNER mg/dL MILLENNIUM Comment: Clinical correlation required for positi ve Urine Bilirubin results as false positive may occur with some drugs and d rug related products. If a false positive is suspected a serum total bili rodriguez should be considered if clinically indicated. Urobilinogen UA Normal Normal mg/dL CERNER MILL ENNIUM pH UA 6.0 5.0 - 8.0 CERNER MILLENNIUM Blood UA Negative Negative mg/dL CERNER MILLENNI UM Ketones UA Negative Negative mg/dL CERNER MILLENN IUM Nitrite UA Negative Negative CERNER MILLENNIUM Leukocytes UA Negative Negative mcL CERNER CHRISTINE NIUM Appearance UA Clear Clear CERNER MILLENNIU M Spec [place] UA 1.020 1.002 - 1.030 CERNER MIL LENNIUM Color UA Yellow Yellow CERNER MILLENNIUM RBC UA 1 0 - 3 /HPF CERNER MILLENNIUM WBC UA 1 0 - 3 /HPF CERNER MILLENNIUM Bacteria UA Rare (A) None /HPF CERNER MILLENNIUM Squam Epith UA <1 <=4 /HPF CERNER MILLENNI UM Specimen Anatomical Collection Method Collection Time Receive d Time (Source) Location / / Volume Laterality Urine specimen 12/24/2014 10:38 5 (specimen) AM EDT 10:56 AM EDT Resulting Agency Comment Spec In Lab Jeronimo Siu MD URINE ORDERABLES Performing Organization Address City/State/[place] [address] [address] CERNER MILLENNIUM Echocardiogram Transthoracic(Leb) (12/24/2014 10:02 AM EDT) P athologist Signature EF 55 HEARTLAB SYSTEM Anatomical Region Laterality Modality Other Specimen (Source) Anatomical Location Collection Method / Collectio n Time Received Time / Laterality Volume 12/24/2014 Narrative 12/24/2014 10:14 AM EDT Procedure: ?Transthoracic Echocardiogram Patient: ?MARCIN Romero ?(Age): 1950(64y) Med Rec#: ? [id number] ?Sex: ?M ? Site Loc: ? DH ?Ht / Wt: ??182(cm)/87(kg) Pt. Loc: ?Adult Floor ? BSA: ?2.09 Study Date: ?? 12/24/2014 ?Pt. Type: Inpatient Tape: ? Referring: KHALIF Referring: Jeronimo Siu Reading: Daniel Dave ([id number]) Grinder: Michelet Lord Diagnosis: *Angina pectoris (413.9) CPT Codes: *Echo Full (41966) *Spectral Doppler (16108) *Color Doppler (09452) *Optison (74083AR) Rhythm: ? Sinus BP: ? 120/66 SUMMARY: 1. There is normal global left ventricul ar systolic function. ??Ejection fraction is estimated to be 55%. ??There are left ventricular segmental wall motion abnormalities present, as sh own in the diagram below. 2. Right ventricular chamber size, wall thickness, and systolic function are within normal limits. 3. There is no hemodynamically significa nt valve disease. 4. See remainder of report for additiona l findings. FINDINGS: ? Study Quality ?Adequate Left Ventricle ?The left ventricular chamber size is normal. ?Left ventricular wall thickness is normal. ?There is normal global left ventri cular systolic function. ??Ejection fraction is estimated to be 55%. ?There are left ventricular segment al wall motion abnormalities present, as shown in the diagram below. ?Doppler assessment is consistent w ith normal left sided filling pressure. ?The ??mid anterior wall segment is hypokinetic (score 2). ?The ??mid anterolateral, and ??mid inferolateral wall segments are akinetic (score 3). ?Overall wallmotion score index is ??1.31 Left Atrium ?The left atrium is normal in size. 25 ml/m2 Right Ventricle ?Right ventricular chamber size, wa ll thickness, and systolic function are within normal limits. Right Atrium ?The right atrium is normal in size . Aortic Valve ?The aortic valve is trileaflet. Th e leaflets are thin with normal excursion. There is no aortic stenosis o r regurgitation present. Mitral Valve ?The mitral valve appears normal in structure and function. ?There is trace mitral regurgitatio n present. Tricuspid Valve ?The tricuspid valve appears normal in structure and function. ?There is trace tricuspid regurgita tion present. Pulmonic Valve ?The pulmonic valve appears normal in structure and function. Pericardium ?The pericardium appears normal and there is no evidence of a pericardial effusion. Aorta ?The aortic root is normal in size. ?The ascending aorta is normal in s ize. Pulmonary Artery ?The main pulmonary artery appears normal. Venous ?The inferior vena cava appears nor mal in size. ?There is a greater than 50% respir atory change in the inferior vena cava dimension. Misc ?There is no hemodynamically signif icant valve disease. ?See remainder of report for additi onal findings. ?Two-dimensional echo, spectral Dop pler and color Doppler performed. ?Optison contrast (one 3 ml vial) w as used to enhance endocardial definition. Excess contrast was discarde d. Chambers 2D ?Value ?Units (Range) ? IVSd (2D) ? 1.2 ?cm ? LVPWd (2D) ?1.1 ?cm ? IVS:LVPW ratio (2D) 1.1 ?ratio ? LVIDd (2D) ?4.4 ?cm ? LVIDs (2D) ?2.4 ?cm ? LVIDd (2D) index ?2.1 ?cm/m2 ? LVIDs (2D) index ?1.2 ?cm/m2 ? LV FS (2D) ?45 ? % ? EF Teichholz (2D) ?? 76 ? % ? Ao root diameter (2D3 ?cm (2.1 - 3.6) ? Ascending Ao ?2.8 ?cm (2 - 3.5) ? Volumes/Mass ?Value ?Units (Range) ? LA Area 2 CH ?16 ? cm2 ? LA Area 4 CH ?19 ? cm2 (<21) ? LA ESV SP 4CH (A/L) 57.2 ? ml ? LA ESV SP 2CH (A/L) 45.2 ? ml ? LA ESV BP (A/L) ? 52.6 ? ml ? LA ESV BP (A/L) inde25.2 ? ml/m2 ? RA AREA 4CH ? 16 ? cm2 ? LA ESV SP 4CH (MOD) 54.6 ? ml ? LA ESV SP 2CH (MOD) 43.1 ? ml ? LV mass (2D) ?183.9 ?g ? LV mass (2D) index ??88 ? g/m2 ? Diastolic/Systolic Function ?Value ?Units (Range) ? MV E-wave Vmax ?0.9 ?m/sec ? MV deceleration bjrd461.3 ? msec ? MV A-wave Vmax ?0.6 ?m/sec ? MV E:A ratio ?1.5 ?ratio ? LV septal e' Vmax ?? 0.1 ?m/sec ? LV E:e' septal ratio11 ? ratio ? Measurement Trending Name ? 12/24/2014 ? LVIDd (2D) ? 4. 24002040 LVIDs (2D) ? 2. 36994613 LA ESV BP (A/L) ?52.5 803 Wall Motion: Segment Name ?Rest ? Base-Anteroseptal ?? Normal ? Base-Anterior ? Normal ? Base-Anterolateral ??Normal ? Base-Posterolateral Normal ? Base-Inferior ? Normal ? Base-Inferoseptal ?? Normal ? Mid-Anteroseptal ?Normal ? Mid-Anterior ?Hypokinetic ? Mid-Anterolateral ?? Akinetic ? Mid-Posterolateral ??Akinetic ? Mid-Inferior ?Normal ? Mid-Inferoseptal ?Normal ? [employer]-Septal ? Normal ? [employer]-Anterior ? Normal ? [employer]-Lateral ?Normal ? [employer]-Inferior ? Normal ? [employer]-Tip ?Normal ? This report has been electronically sign ed by: _ Daniel Dave M.D. ? 12/24/2014 10:13:56 Images reviewed and interpretation [facility] Procedure Note Daniel Dave MD - 12/24/2014Format ting of this note might be different from the original. Procedure: Transthoracic Echocardiogram Patient: MARCIN Romero DOB(Age): (64y) Med Rec#: [id number] Sex: M Site Loc: [facility] Ht / Wt: 182(cm)/87(kg) Pt. Loc: Adult Floor BSA: 2.09 Study Date: 12/24/2014 Pt. Type: Inpatie nt Tape: Referring: HKALIF Referring: Jeronimo Siu Reading: Daniel Dave Estelita ([id number]) Grinder: Michelet Lord Diagnosis: *Angina pectoris (413.9) CPT Codes: *Echo Full (64074) *Spectral Doppler (47694) *Color Doppler (26334) *Optison (08879ZG) Rhythm: Sinus BP: 120/66 SUMMARY: 1. There is normal global left ventricul ar systolic function. Ejection fraction is estimated to be 55%. There a re left ventricular segmental wall motion abnormalities present, as sh own in the diagram below. 2. Right ventricular chamber size, wall thickness, and systolic function are within normal limits. 3. There is no hemodynamically significa nt valve disease. 4. See remainder of report for additiona l findings. FINDINGS: Study Quality Adequate Left Ventricle The left ventricular chamber size is no rmal. Left ventricular wall thickness is norm al. There is normal global left ventricular systolic function. Ejection fraction is estimated to be 55%. There are left ventricular segmental wa ll motion abnormalities present, as shown in the diagram below. Doppler assessment is consistent with n ormal left sided filling pressure. The mid anterior wall segment is hypoki netic (score 2). The mid anterolateral, and mid inferola teral wall segments are akinetic (score 3). Overall wallmotion score index is 1.31 Left Atrium The left atrium is normal in size.25 ml /m2 Right Ventricle Right ventricular chamber size, wall th ickness, and systolic function are within normal limits. Right Atrium The right atrium is normal in size. Aortic Valve The aortic valve is trileaflet. The renaldo flets are thin with normal excursion. There is no aortic stenosis o r regurgitation present. Mitral Valve The mitral valve appears normal in stru cture and function. There is trace mitral regurgitation pre sent. Tricuspid Valve The tricuspid valve appears normal in s tructure and function. There is trace tricuspid regurgitation present. Pulmonic Valve The pulmonic valve appears normal in st ructure and function. Pericardium The pericardium appears normal and ther e is no evidence of a pericardial effusion. Aorta The aortic root is normal in size. The ascending aorta is normal in size. Pulmonary Artery The main pulmonary artery appears basil l. Venous The inferior vena cava appears normal i n size. There is a greater than 50% respiratory change in the inferior vena cava dimension. Misc There is no hemodynamically significant valve disease. See remainder of report for additional findings. Two-dimensional echo, spectral Doppler and color Doppler performed. Optison contrast (one 3 ml vial) was us ed to enhance endocardial definition. Excess contrast was discarde d. Chambers 2D Value Units (Range) IVSd (2D) 1.2 cm LVPWd (2D) 1.1 cm IVS:LVPW ratio (2D) 1.1 ratio LVIDd (2D) 4.4 cm LVIDs (2D) 2.4 cm LVIDd (2D) index 2.1 cm/m2 LVIDs (2D) index 1.2 cm/m2 LV FS (2D) 45 % EF Teichholz (2D) 76 % Ao root diameter (2D3 cm (2.1 - 3.6) Ascending Ao 2.8 cm (2 - 3.5) Volumes/Mass Value Units (Range) LA Area 2 CH 16 cm2 LA Area 4 CH 19 cm2 (<21) LA ESV SP 4CH (A/L) 57.2 ml LA ESV SP 2CH (A/L) 45.2 ml LA ESV BP (A/L) 52.6 ml LA ESV BP (A/L) inde25.2 ml/m2 RA AREA 4CH 16 cm2 LA ESV SP 4CH (MOD) 54.6 ml LA ESV SP 2CH (MOD) 43.1 ml LV mass (2D) 183.9 g LV mass (2D) index 88 g/m2 Diastolic/Systolic Function Value Units (Range) MV E-wave Vmax 0.9 m/sec MV deceleration hujw159.3 msec MV A-wave Vmax 0.6 m/sec MV E:A ratio 1.5 ratio LV septal e' Vmax 0.1 m/sec LV E:e' septal ratio11 ratio Measurement Trending Name 12/24/2014 LVIDd (2D) 4.36446831 LVIDs (2D) 2.11807205 LA ESV BP (A/L) 52.5803 Wall Motion: Segment Name Rest Base-Anteroseptal Normal Base-Anterior Normal Base-Anterolateral Normal Base-Posterolateral Normal Base-Inferior Normal Base-Inferoseptal Normal Mid-Anteroseptal Normal Mid-Anterior Hypokinetic Mid-Anterolateral Akinetic Mid-Posterolateral Akinetic Mid-Inferior Normal Mid-Inferoseptal Normal [employer]-Septal Normal [employer]-Anterior Normal [employer]-Lateral Normal [employer]-Inferior Normal [employer]-Tip Normal This report has been electronically sign ed by: _ Daniel Dave M.D. 12/24/2014 10:13: 56 Images reviewed and interpretation verif ie[facility]essia [facility] Jeronimo Siu MD ECHO ORDERABLES (ABNORMAL) Cardiac Enzymes (12/24/2014 6:27 AM EDT) athologist Signature Troponin-T 0.08 (H) <=0.03 TORI ng/mL [facility] Comment: 0.03 ng/mL: Represents the 99th percenti le upper reference limit for normals. >0.03 ng/mL: Elevated cardiac troponin T level indicative of myocardial damage. Diagnosis of acute, evolving or recent M I requires a typical rise and gradual fall of cTnT with at least ONE of the fo llowing: a) Ischemic symptoms b) Development of pathologic Q waves on the ECG c) ECG changes indicative of eschemia (S -T segment elevation/depression) d) Coronary artery intervention Serial bloods should be obtained for khanh ting on admission, at 6 to 9 hrs and again at 12 to 24 hrs if earlier samples are negative and the clinical index of suspicion is high. Reference: [Myocardial infarction redefined? a consensus document of the Joint Society of Cardiology/[place] College o f Cardiology Committee for the redefinition of myocardial infarction. ? ?Journal of the [place] College of Cardiology 2000; 36: 959-969] CK, Total 190 0 - 200 unit/L TORI GAITANI UM Specimen Anatomical Collection Method Collection Time Receive d Time (Source) Location / / Volume Laterality Blood specimen Venous Draw / 12/24/2014 6:27 AM 2014 6:36 (specimen) Unknown EDT AM EDT Resulting Agency Comment Spec In Lab Jeronimo Siu MD CHEMISTRY ORDERABLES Performing Organization Address City/State/ZIP Code [place] [address] CERNER MILLENNIUM (ABNORMAL) BMP w/fasting Glucose (12/24/2014 6:27 AM EDT) athologist Signature Glucose 116 (H) 65 - 99 CERNER Fasting mg/dL MILLENNIUM Comment: ?Fasting* Glucose Interpretive C riteria Normal ?65-99 mg/dL Impaired Fasting glucose ?100-125 mg/dL Consistent with Diabetes Mellitus ? >or= 126 mg/dL *Fasting is defined as no caloric intake for at least 8 hours In the absence of unequivocal hypergly cemia a plasma glucose value of >or= 126 mg/dL should be repeated on a subseq u day. Diagnosis and Classification of Diabetes Mellitus, Position Statement from the [place] Diabetes Association. ??Diabete s Care, Volume 33, Supplement 1, Jun 2009 BUN 17 10 - 20 mg/dL CERNER MILLENNIU M Creatinine 0.78 (L) 0.80 - 1.50 mg/dL CERNER MILL ENNIUM Comment: Please note that the pediatric reference intervals supplied above were not validated at [facility]. Results from pediatri c patients should be interpreted in conjunction to the patient's age, height and muscle mass. Sodium 141 135 - 145 mmol/L CERNER CHRISTINE NIUM Potassium 4.5 3.5 - 5.0 mmol/L CERNER CHRISTINE NIUM Comment: Please note: ??Patients with WBC >100,00 0 may have falsely elevated Potassium levels. ??For accurate Potassium quantif ication in these patients send serum separator tube (gold top) for subsequent determinations. ??Contact the Clinical Chemistry Laboratory if there are any qu estions. Chloride 105 98 - 107 mmol/L CERNER MILLENN IUM CO2 23 22 - 31 mmol/L CERNER MILLENNI UM Anion Gap 13 5 - 15 mmol/L CERNER MILLENNIU M Calcium 9.2 8.5 - 10.5 mg/dL CERNER CHRISTINE NIUM Estimated GFR >60 >=60 CERNER MILLENNIU M Comment: This estimated GFR (eGFR) value was calc ulated using the MDRD equation which has been validated on patients between t he ages of 18 and 70. The MDRD should not be used to assess kidney function in patients < 18 years of age or in patients with extremes of body mass, or in patients with acute kidney failure. This value should be multiplied by 1.2 f or patients. For further information please copy and past e the following links into your internet browser. http://[employer] [place]/DHnkdep http://[employer] [place]/DHMCnkf Specimen Anatomical Collection Method Collection Time Receive d Time (Source) Location / / Volume Laterality Blood specimen 12/24/2014 6:27 AM 015 6:36 (specimen) EDT AM EDT Resulting Agency Comment Spec In Lab Jeronimo Siu MD CHEMISTRY ORDERABLES Performing Organization Address City/State/[place] [address] CERNER MILLENNIUM Differential, Automated (12/24/2014 6:27 AM EDT) P athologist Signature Neutrophils % 57.7 % CERNER MILLENNIUM Neutr Abs (ANC) 4.14 1.50 - CERNER 6.30 MILLENNIUM x10(3)/mcL Lymphocytes % 27.7 % CERNER MILLENNIUM Lymphocytes Abs 2.0 1.0 - 3.6 CERNER x10(3)/mcL MILLENNIUM Monocytes % 9.4 % CERNER MILLENNIUM Monocyte Abs 0.7 0.2 - 1.0 CERNER x10(3)/mcL MILLENNIUM Eosinophils % 4.1 % CERNER MILLENNIUM Eosinophils Abs 0.3 0.0 - 0.5 CERNER x10(3)/mcL MILLENNIUM Basophils % 1.0 % CERNER MILLENNIUM Basophils Abs 0.1 0.0 - 0.2 CERNER x10(3)/mcL MILLENNIUM Immature Gran % 0.10 % CERNER MILLENNIUM Comment: Immature granulocytes(IG's)percentage an d absolute count will include metamyelocytes, myelocytes, and promyelo cytes. Blood smears from CBCs yielding IG's will be scanned manually for concor dance. If this scan disagrees with the automated IG or if promyelocytes are not ed, a manual differential will be performed. Rashida Gran Abs 0.01 0.00 - 0.05 x10(3)/mcL CER NER MILLENNIUM Specimen Anatomical Collection Method Collection Time Receive d Time (Source) Location / / Volume Laterality Blood specimen 12/24/2014 6:27 AM 015 6:36 (specimen) EDT AM EDT Resulting Agency Comment Spec In Lab Jeronimo Siu MD HEMATOLOGY ORDERABLES Performing Organization Address City/State/[place] [address] CERNER MILLENNIUM (ABNORMAL) Hemogram (12/24/2014 6:27 AM EDT) P athologist Signature WBC 7.2 4.0 - 10.0 CERNER x10(3)/mcL MILLENNIUM RBC 4.09 (L) 4.63 - CERNER 6.08 MILLENNIUM x10(6)/mcL Hemoglobin 13.0 (L) 13.7 - CERNER 17.5 gm/dL MILLENNIUM Hematocrit 38.4 (L) 40.0 - CERNER 51.0 % MILLENNIUM MCV 93.9 (H) 79.0 - CERNER 92.0 fL MILLENNIUM MCH 31.8 25.6 - CERNER 32.2 pg MILLENNIUM MCHC 33.9 32.0 - CERNER 36.5 gm/dL MILLENNIUM Platelets 144 (L) 145 - 370 CERNER x10(3)/mcL MILLENNIUM RDWSD 44.2 35.0 - CERNER 46.0 fL MILLENNIUM RDWCV 12.8 10.9 - CERNER 14.4 % MILLENNIUM MPV 11.9 9.0 - 12.0 CERNER fL MILLENNIUM Specimen Anatomical Collection Method Collection Time Receive d Time (Source) Location / / Volume Laterality Blood specimen 12/24/2014 6:27 AM 015 6:36 (specimen) EDT AM EDT Resulting Agency Comment Spec In Lab Jeronimo Siu MD HEMATOLOGY ORDERABLES Performing Organization Address City/[facility]/[place]IP [place] [address] CERNER MILLENNIUM Triglyceride (12/24/2014 6:27 AM EDT) athologist Signature Triglycerides 88 <=149 CERNER mg/dL MILLENNIUM Comment: Reference Range: Normal triglycerides: ??<150 mg/dL Borderline high: ??150-199 mg/dL High: ??200-499 mg/dL Very high: ??>mr=567 mg/dL KRUNAL 2001; 285(19):9053-7038 Specimen Anatomical Collection Method Collection Time Receive d Time (Source) Location / / Volume Laterality Blood specimen 12/24/2014 6:27 AM 015 6:36 (specimen) EDT AM EDT Resulting Agency Comment Spec In Lab Jeronimo Siu MD CHEMISTRY ORDERABLES Performing Organization Address City/State/ZIP Code Phon e Number [place] [address] CERNER MILLENNIUM HDL/Cholesterol Profile (12/24/2014 6:27 AM EDT) athologist Signature Chol, Total 138 <=199 mg/dL CERNER MILLENNIUM Comment: Recommendations of the NCEP Adult Treatm ent Panel for the following risk cutoff thresholds for the [place] popul[place] n: Desirable: <200 mg/dL Borderline High: 200-239 mg/dL High: > or = 240 mg/dL HDL 46 >=40 mg/dL CERNER MILLENNIUM Comment: Reference range: ??Low HDL: ?? < 40 mg/dL ??Normal: ?40-60 mg/dL ??Desirable: > 60 mg/dL KRUNAL 2001; 285(19):7611-2213 Chol/HDL Ratio 3.0 ratio CERNER MILLENNI UM Comment: A Cholesterol to HDL ratio below 4:1 is desirable. ??Studies suggest that increased CAD risk occurs at ratios abov e 5 for females and above 6 for men. ? [place] Heart Association ??(htt p://www.americanheart.org) ? Aysha Int Med, 1994; 121:641 ? AM J Med, 1998; 105(1A):48S Specimen Anatomical Collection Method Collection Time Receive d Time (Source) Location / / Volume Laterality Blood specimen 12/24/2014 6:27 AM 015 6:36 (specimen) EDT AM EDT Resulting Agency Comment Spec In Lab Jeronimo Siu MD CHEMISTRY ORDERABLES Performing Organization Address City/[facility]/ZIP Code [place] [address] CERNER MILLENNIUM LDL Cholesterol, Direct (12/24/2014 6:27 AM EDT) P athologist Signature LDL Chol 80 <=99 mg/dL CERNER Direct [facility] Comment: The National Cholesterol Education Progr am (NCEP) has set the following guidelines for LDL Cholesterol: Reference range: ?? Optimal: ?<100 mg/dL ?? Near Optimal/Above Optimal: ?? 100-1 29 mg/dL ?? Borderline high: ?130-159 mg/dL ?? High: ? 160-189 mg/dL ?? Very high: ?>cn=744 mg/dL KRUNAL 2001: 285(19):9667-1269 Specimen Anatomical Collection Method Collection Time Receive d Time (Source) Location / / Volume Laterality Blood specimen 12/24/2014 6:27 AM 015 6:36 (specimen) EDT AM EDT Resulting Agency Comment Spec In Lab Jeronimo Siu MD CHEMISTRY ORDERABLES Performing Organization Address City/[facility]/ZIP Code [place] [address] CERNER MILLENNIUM (ABNORMAL) Hemoglobin A1c (12/24/2014 6:27 AM EDT) Analysis Performed At Patho logist Time Signature Hemoglobin A1C 5.7 (H) 4.3 - 5.6 CERNER % MILLENNIUM Comment: Reference Range: 4.3 - 5.6% 5.7 - 6.4% - Increased Risk of Developin g Diabetes Mellitus 6.5% - Consistent with diagnosis of Diab etes Mellitus In the absence of hyperglycemia (i.e. pl asma glucose > 200 mg/dL) or classic symptoms of hyperglycemia a repeat measu rement of HbA1c should be performed on a separate sample to confirm the diagnos is. Diagnosis and Classification of Diabetes Mellitus, Diabetes Care 2013; 36: Suppl. 1, S67-16 Est Avg Gluc 117 mg/dL [facility] Comment: eAG equivalents for HbA1c percentages: HbA1c(%) ?eAG(mg/dL) 6.0 ?126 6.5 ?140 7.0 ?154 7.5 ?169 8.0 ?183 8.5 ?197 9.0 ?212 9.5 ?226 10.0 ? 240 Limitations: The eAG calculation has not been validated on women, individuals below 18 years old and above 70 years old, and individuals with hemoglobinopathies. Additional resources are available on [facility] website: http://[employer] [place]/[facility]AUadacalc Marco ORR, Amanda J, Yoel R, et al. ??Tr anslating the A1C assay into estimated average glucose values. ??Diabetes Care 2008:31(8):0795-5681. Specimen Anatomical Collection Method Collection Time Receive d Time (Source) Location / / Volume Laterality Blood specimen 12/24/2014 6:27 AM 015 6:36 (specimen) EDT AM EDT Resulting Agency Comment Spec In Lab Jeronimo Siu MD CHEMISTRY ORDERABLES Performing Organization Address City/State/[place] [address] CERNER MILLENNIUM (ABNORMAL) APTT (12/24/2014 6:27 AM EDT) P athologist Signature PTT 90 (H) 25 - 35 sec CERNER MILLENNIUM Comment: Recommended therapeutic PTT range for fu ll dose unfractionated heparin is 80-114 seconds. Specimen Anatomical Collection Method Collection Time Receive d Time (Source) Location / / Volume Laterality Blood specimen 12/24/2014 6:27 AM 015 6:36 (specimen) EDT AM EDT Resulting Agency Comment Spec In Lab Jeronimo Siu MD HEMATOLOGY ORDERABLES Performing Organization Address [facility] [place] [address] CERNER MILLENNIUM Prothrombin Time (12/24/2014 6:27 AM EDT) athologist Signature PT 14.4 12.5 - 15.5 CERNER sec MILLENNIUM Comment: Transfusion Committee Guidelines: INR less than 2.0, PTT less than OR equal to 43.5 seconds, or Fibrinogen greater t mcdermott or equal to 100 mg/dl indicate adequate procoagulant activity for hemos tasis in patients without underlying bleeding disorders. INR 1.0 0.9 - 1.1 CERNER MILLENNIUM Specimen Anatomical Collection Method Collection Time Receive d Time (Source) Location / / Volume Laterality Blood specimen 12/24/2014 6:27 AM 015 6:36 (specimen) EDT AM EDT Resulting Agency Comment Spec In Lab Jeronimo Siu MD HEMATOLOGY ORDERABLES Performing Organization Address [facility] [place] [address] [address] CERNER MILLENNIUM (ABNORMAL) Hepatic Function Panel (12/24/2014 6:27 AM EDT) P athologist Signature Total Protein 5.7 (L) 6.1 - 8.0 CERNER gm/dL MILLENNIUM Albumin 3.8 3.2 - 5.2 CERNER gm/dL MILLENNIUM AST 25 0 - 39 CERNER unit/L MILLENNIUM ALT 25 0 - 55 CERNER unit/L MILLENNIUM Alk Phos 39 (L) 40 - 120 CERNER unit/L MILLENNIUM Total 0.4 0.2 - 1.3 CERNER Bilirubin mg/dL MILLENNIUM Bili, Direct 0.1 0.0 - 0.3 CERNER mg/dL MILLENNIUM Specimen Anatomical Collection Method Collection Time Receive d Time (Source) Location / / Volume Laterality Blood specimen 12/24/2014 6:27 AM 015 6:36 (specimen) EDT AM EDT Resulting Agency Comment Spec In Lab Jeronimo Siu MD CHEMISTRY ORDERABLES Performing Organization Address City/[facility] Phon e Number [address] CERNER MILLENNIUM TSH (12/24/2014 6:27 AM EDT) P athologist Signature TSH 1.56 0.27 - 4.20 CERNER mcIU/mL MILLENNIUM Specimen Anatomical Collection Method Collection Time Receive d Time (Source) Location / / Volume Laterality Blood specimen 12/24/2014 6:27 AM 015 6:36 (specimen) EDT AM EDT Resulting Agency Comment Spec In Lab Jeronimo Siu MD CHEMISTRY ORDERABLES Performing Organization Address City/[facility] Phon e Number [address] CERNER MILLENNIUM (ABNORMAL) Phosphorus (12/24/2014 6:27 AM EDT) P athologist Signature Phosphorus 2.4 (L) 2.5 - 4.5 CERNER mg/dL [facility] Specimen Anatomical Collection Method Collection Time Receive d Time (Source) Location / / Volume Laterality Blood specimen 12/24/2014 6:27 AM 015 6:36 (specimen) EDT AM EDT Resulting Agency Comment Spec In Lab Jeronimo Siu MD CHEMISTRY ORDERABLES Performing Organization Address City/[facility] Phon e Number [address] CERNER MILLENNIUM Magnesium (12/24/2014 6:27 AM EDT) P athologist Signature Magnesium 0.85 0.69 - 1.07 CERNER mmol/L MILLENNIUM Specimen Anatomical Collection Method Collection Time Receive d Time (Source) Location / / Volume Laterality Blood specimen 12/24/2014 6:27 AM 015 6:36 (specimen) EDT AM EDT Resulting Agency Comment Spec In Lab Jeronimo Siu MD CHEMISTRY ORDERABLES Performing Organization Address [facility] [place] [address] CERNER MILLENNIUM (ABNORMAL) APTT (12/24/2014 12:30 AM EDT) athologist Signature PTT 65 (H) 25 - 35 sec CERNER MILLENNIUM Comment: Recommended therapeutic PTT range for fu ll dose unfractionated heparin is 80-114 seconds. Specimen Anatomical Collection Method Collection Time Receive d Time (Source) Location / / Volume Laterality Blood specimen 12/24/2014 12:30 5 1:45 (specimen) AM EDT AM EDT Resulting Agency Comment Spec In Lab Jeronimo Siu MD HEMATOLOGY ORDERABLES Performing Organization Address [facility] [place] [address] CERNER MILLENNIUM (ABNORMAL) Cardiac Enzymes (12/24/2014 12:30 AM EDT) athologist Signature Troponin-T 0.11 (H) <=0.03 CERNER ng/mL [facility] Comment: 0.03 ng/mL: Represents the 99th percenti le upper reference limit for normals. >0.03 ng/mL: Elevated cardiac troponin T level indicative of myocardial damage. Diagnosis of acute, evolving or recent M I requires a typical rise and gradual fall of cTnT with at least ONE of the fo llowing: a) Ischemic symptoms b) Development of pathologic Q waves on the ECG c) ECG changes indicative of eschemia (S -T segment elevation/depression) d) Coronary artery intervention Serial bloods should be obtained for khanh ting on admission, at 6 to 9 hrs and again at 12 to 24 hrs if earlier samples are negative and the clinical index of suspicion is high. Reference: [Myocardial infarction redefined? a consensus document of the Joint Society of Cardiology/[place] College o f Cardiology Committee for the redefinition of myocardial infarction. ? ?Journal of the [place] College of Cardiology 2000; 36: 959-969] CK, Total 252 (H) 0 - 200 unit/L CERNER MILLENNI UM Specimen Anatomical Collection Method Collection Time Receive d Time (Source) Location / / Volume Laterality Blood specimen 12/24/2014 12:30 5 1:45 (specimen) AM EDT AM EDT Resulting Agency Comment Spec In Lab Jeronimo Siu MD CHEMISTRY ORDERABLES Performing Organization Address City/State/[place] [address] CERNER PulmOneIUM XR chest routine PA & lateral (12/23/2014 8:56 PM EDT) Anatomical Region Laterality Modality Chest N/A Radiographic Imaging Specimen (Source) Anatomical Collection Method Collection Time Re ceived Time Location / / Volume Laterality 12/23/2014 8:56 PM EDT Impressions 12/23/2014 9:17 PM EDT IMPRESSION: No acute cardiopulmonary process. Narrative 12/23/2014 9:17 PM EDT EXAMINATION: CHEST ROUTINE 2 VIEWS CLINICAL HISTORY: sob r/o pul edema TECHNIQUE: 2 views COMPARISON: December 22, 2014 FINDINGS: The cardiomediastinal silhouette and pul monary vasculature are normal. Lungs are clear. No pleural effusion or pneumothor ax. Bones are unchanged. Procedure Note Ifrah Batista MD - 12/23/2014 EXAMINATION: CHEST ROUTINE 2 VIEWS CLINICAL HISTORY: sob r/o pul edema TECHNIQUE: 2 views COMPARISON: December 22, 2014 FINDINGS: The cardiomediastinal silhouette and pul monary vasculature are normal. Lungs are clear. No pleural effusion or pneumothor ax. Bones are unchanged. IMPRESSION IMPRESSION: No acute cardiopulmonary process. Jeronimo Siu MD IMG DX ORDERABLES D-Dimer, Quantitative (12/23/2014 6:39 PM EDT) P athologist Signature D-Dimer, Quant 200 0 - 500 CERNER FEU ng/ml [employer] Comment: The D-Dimer assay is used to aid in the diagnosis of deep vein thrombosis and pulmonary embolism. A normal D-Dimer res ult (less than 500 FEU ng/ml) has a negative predictive value of approximate ly 95% for the exclusion of acute PE and DVT when there is low to moderate pr etest probability. Specimen Anatomical Collection Method Collection Time Receive d Time (Source) Location / / Volume Laterality Blood specimen Venous Draw / 12/23/2014 6:39 PM 2014 6:46 (specimen) Unknown EDT PM EDT Resulting Agency Comment Spec In Lab Jeronimo Siu MD HEMATOLOGY ORDERABLES Performing Organization Address City/State/Z[place] [address] CERNER MILLENNIUM (ABNORMAL) Differential, Automated (12/23/2014 6:39 PM EDT) [facility] gist Method Time Signature Neutrophils % 70.6 % CERNER MILLENNIUM Neutr Abs (ANC) 7.65 (H) 1.50 - CERNER 6.30 MILLENNIUM x10(3)/mc L Lymphocytes % 17.9 % CERNER MILLENNIUM Lymphocytes Abs 1.9 1.0 - 3.6 CERNER x10(3)/mc MILLENNIUM L Monocytes % 9.1 % CERNER MILLENNIUM Monocyte Abs 1.0 0.2 - 1.0 CERNER x10(3)/mc MILLENNIUM L Eosinophils % 1.8 % CERNER MILLENNIUM Eosinophils Abs 0.2 0.0 - 0.5 CERNER x10(3)/mc MILLENNIUM L Basophils % 0.4 % CERNER MILLENNIUM Basophils Abs 0.0 0.0 - 0.2 CERNER x10(3)/mc MILLENNIUM L Immature Gran % 0.20 % CERNER MILLENNIUM Comment: Immature granulocytes(IG's)percentage an d absolute count will include metamyelocytes, myelocytes, and promyelo cytes. Blood smears from CBCs yielding IG's will be scanned manually for concor dance. If this scan disagrees with the automated IG or if promyelocytes are not ed, a manual differential will be performed. Rashida Gran Abs 0.02 0.00 - 0.05 x10(3)/mcL CER NER MILLENNIUM Specimen Anatomical Collection Method Collection Time Receive d Time (Source) Location / / Volume Laterality Blood specimen 12/23/2014 6:39 PM 015 6:46 (specimen) EDT PM EDT Resulting Agency Comment Spec In Lab Jeronimo Siu MD HEMATOLOGY ORDERABLES Performing Organization Address City/[facility]/[place] [address] CERNER MILLENNIUM (ABNORMAL) Hemogram (12/23/2014 6:39 PM EDT) P athologist Signature WBC 10.8 (H) 4.0 - 10.0 CERNER x10(3)/mcL MILLENNIUM RBC 4.17 (L) 4.63 - CERNER 6.08 MILLENNIUM x10(6)/mcL Hemoglobin 13.5 (L) 13.7 - CERNER 17.5 gm/dL MILLENNIUM Hematocrit 38.2 (L) 40.0 - CERNER 51.0 % MILLENNIUM MCV 91.6 79.0 - CERNER 92.0 fL MILLENNIUM MCH 32.4 (H) 25.6 - CERNER 32.2 pg MILLENNIUM MCHC 35.3 32.0 - CERNER 36.5 gm/dL MILLENNIUM Platelets 171 145 - 370 CERNER x10(3)/mcL MILLENNIUM RDWSD 42.9 35.0 - CERNER 46.0 fL MILLENNIUM RDWCV 12.7 10.9 - CERNER 14.4 % MILLENNIUM MPV 11.2 9.0 - 12.0 CERNER fL MILLENNIUM Specimen Anatomical Collection Method Collection Time Receive d Time (Source) Location / / Volume Laterality Blood specimen 12/23/2014 6:39 PM 015 6:46 (specimen) EDT PM EDT Resulting Agency Comment Spec In Lab Jeronimo Siu MD HEMATOLOGY ORDERABLES Performing Organization Address City/[facility]/[place] [address] [address] CERNER MILLENNIUM (ABNORMAL) APTT (12/23/2014 6:39 PM EDT) P athologist Signature PTT 62 (H) 25 - 35 sec CERNER MILLENNIUM Comment: Recommended therapeutic PTT range for fu ll dose unfractionated heparin is 80-114 seconds. Specimen Anatomical Collection Method Collection Time Receive d Time (Source) Location / / Volume Laterality Blood specimen 12/23/2014 6:39 PM 015 6:46 (specimen) EDT PM EDT Resulting Agency Comment Spec In Lab Jeronimo Siu MD HEMATOLOGY ORDERABLES Performing Organization Address City/[facility] [place] [address] CERNER MILLENNIUM (ABNORMAL) Cardiac Enzymes (12/23/2014 6:39 PM EDT) P athologist Signature Troponin-T 0.15 (H) <=0.03 CERNER ng/mL MILLENNIUM Comment: 0.03 ng/mL: Represents the 99th percenti le upper reference limit for normals. >0.03 ng/mL: Elevated cardiac troponin T level indicative of myocardial damage. Diagnosis of acute, evolving or recent M I requires a typical rise and gradual fall of cTnT with at least ONE of the fo llowing: a) Ischemic symptoms b) Development of pathologic Q waves on the ECG c) ECG changes indicative of eschemia (S -T segment elevation/depression) d) Coronary artery intervention Serial bloods should be obtained for khanh ting on admission, at 6 to 9 hrs and again at 12 to 24 hrs if earlier samples are negative and the clinical index of suspicion is high. Reference: [Myocardial infarction redefined? a consensus document of the Joint Society of Cardiology/[place] College o f [employer] Committee for the redefinition of myocardial infarction. ? ?Journal of the [place] College of [employer]iology 2000; 36: 959-969] CK, Total 320 (H) 0 - 200 unit/L CERNER MILLENNI UM Specimen Anatomical Collection Method Collection Time Receive d Time (Source) Location / / Volume Laterality Blood specimen 12/23/2014 6:39 PM 015 6:46 (specimen) EDT PM EDT Resulting Agency Comment Spec In Lab Jeronimo Siu MD CHEMISTRY ORDERABLES Performing Organization Address City/State/ZIP Code [place] [address] CERNER MILLENNIUM Magnesium (12/23/2014 6:39 PM EDT) P athologist Signature Magnesium 0.76 0.69 - 1.07 CERNER mmol/L MILLENNIUM Specimen Anatomical Collection Method Collection Time Receive d Time (Source) Location / / Volume Laterality Blood specimen 12/23/2014 6:39 PM 015 6:46 (specimen) EDT PM EDT Resulting Agency Comment Spec In Lab Jeronimo Siu MD CHEMISTRY ORDERABLES Performing Organization Address City/State/[place] [address] CERNER MILLENNIUM (ABNORMAL) pro-Brain Natriuretic Peptide (12/23/2014 6:39 PM EDT) P athologist Signature ProBNP 856 (H) <=125 pg/mL CERNER [facility] Specimen Anatomical Collection Method Collection Time Receive d Time (Source) Location / / Volume Laterality Blood specimen 12/23/2014 6:39 PM 015 6:46 (specimen) EDT PM EDT Resulting Agency Comment Spec In Lab Jeronimo Siu MD CHEMISTRY ORDERABLES Performing Organization Address City/[facility]/[place] [address] CERNER MILLENNIUM (ABNORMAL) BMP w/fasting Glucose (12/23/2014 6:39 PM EDT) P athologist Signature Glucose 110 (H) 65 - 99 CERNER Fasting mg/dL [facility] Comment: ?Fasting* Glucose Interpretive C riteria Normal ?65-99 mg/dL Impaired Fasting glucose ?100-125 mg/dL Consistent with Diabetes Mellitus ? >or= 126 mg/dL *Fasting is defined as no caloric intake for at least 8 hours In the absence of unequivocal hypergly cemia a plasma glucose value of >or= 126 mg/dL should be repeated on a subseq uent day. Diagnosis and Classification of Diabetes Mellitus, Position Statement from the [place] [employer] Association. ??Diabete s Care, Volume 33, Supplement 1, Jun 2009 BUN 13 10 - 20 mg/dL CERNER MILLENNIU M Creatinine 0.73 (L) 0.80 - 1.50 mg/dL CERNER MILL ENNIUM Comment: Please note that the pediatric reference intervals supplied above were not validated at [facility]. Results from pediatri c patients should be interpreted in conjunction to the patient's age, height and muscle mass. Sodium 142 135 - 145 mmol/L CERNER CHRISTINE NIUM Potassium 3.7 3.5 - 5.0 mmol/L CERNER CHRISTINE NIUM Comment: Please note: ??Patients with WBC >100,00 0 may have falsely elevated Potassium levels. ??For accurate Potassium quantif ication in these patients send serum separator tube (gold top) for subsequent determinations. ??Contact the Clinical Chemistry Laboratory if there are any qu estions. Chloride 105 98 - 107 mmol/L CERNER MILLENN IUM CO2 21 (L) 22 - 31 mmol/L CERNER MILLENNI UM Anion Gap 16 (H) 5 - 15 mmol/L CERNER MILLENNIU M Calcium 9.0 8.5 - 10.5 mg/dL CERNER CHRISTINE NIUM Estimated GFR >60 >=60 CERNER MILLENNIU M Comment: This estimated GFR (eGFR) value was calc ulated using the MDRD equation which has been validated on patients between t he ages of 18 and 70. The MDRD should not be used to assess kidney function in patients < 18 years of age or in patients with extremes of body mass, or in patients with acute kidney failure. This value should be multiplied by 1.2 f or patients. For further information please copy and past e the following links into your internet browser. http://[employer]/DHnkdep http://[employer]/[facility]EAUnkf Specimen Anatomical Collection Method Collection Time Receive d Time (Source) Location / / Volume Laterality Blood specimen 12/23/2014 6:39 PM 015 6:46 (specimen) EDT PM EDT Resulting Agency Comment Spec In Lab Jeronimo Siu MD CHEMISTRY ORDERABLES Performing Organization Address City/State/[place] [address] CERNER MILLENNIUM EKG 12 Lead (12/23/2014 5:24 PM EDT) Component Value Ref Test Analysis Performed At Patholo gist Range Method Time Signature Ventricular rate 88 BPM MUSE SYSTEM Atrial Rate 119 BPM MUSE SYSTEM QRS Duration 78 ms MUSE SYSTEM Q-T Interval 362 ms MUSE SYSTEM QTC Calculated 438 ms MUSE SYSTEM (Bezet) INTERPRETATION Atrial fibrillation MUSE SYSTEM Abnormal ECG When compared with ECG of 03-MAY-2001 14:23, Atrial fibrillation has replaced Sinus rhythm T wave amplitude has decreased in Anterior leads Confirmed by Braulio Corona MD ([id number]) on 12/24/2014 9:31:04 AM Specimen Anatomical Collection Method Collection Time Receive d Time (Source) Location / / Volume Laterality 12/23/2014 5:24 PM 5 9:31 EDT AM EDT Leon Phoenix MD ECG ORDERABLES Performing Organization Address City/State/ZIP Code Phon e Number MUSE SYSTEM documented in this encounter Visit Diagnoses Diagnosis Non-ST elevation myocardial infarction ( NSTEMI) - Primary Acute myocardial infarction, subendocard ial infarction, episode of care unspecified Unstable angina Intermediate coronary syndrome Atrial fibrillation with RVR, paroxysmal , CHADS2-VASc=3 Atrial fibrillation Hypertension Unspecified essential hypertension Hyperlipidemia Other and unspecified hyperlipidemia documented in this encounter Administered Medications Inactive Administered Medications - up to 3 most recent administrations Medication Order MAR Action Action Date Dose Rate Site aspirin EC tablet 81 mg Given 12/25/2014 8:49 AM EDT 81 mg 81 mg, Oral, DAILY, First dose on Tue12/24/14 at 0900, Until Discontinued, Routine Given 12/24/2014 8:09 AM EDT 81 mg atorvastatin (LIPITOR) tablet 80 mg Given 12/24/2014 5:48 PM EDT 80 mg 80 mg, Oral, EVERY EVENING, First dose on Tue12/24/14 at 1700, Until Discontinued, Routine cholecalciferol (Vitamin D3) tablet Given 12/25/2014 8:48 AM EDT 1,000 Units 1,000 Units 1,000 Units, Oral, DAILY, First dose on Tue12/24/14 at 0900, Until Discontinued, Routine Given 12/24/2014 8:10 AM EDT 1,000 Units clopidogrel (PLAVIX) tablet 75 mg Given 12/25/2014 8:48 AM EDT 75 mg 75 mg, Oral, DAILY, First dose on Tue12/25/14 at 0900, Until Discontinued, Routine diaZEPam (VALIUM) tablet 5 mg Given 12/24/2014 1:51 PM EDT 5 mg 5 mg, Oral, ONCE, 1 dose, On Tue12/24/14 at 1415, Cath (Day of Procedure), Routine DILTiazem 100 mg in dextrose Continued Bag 12/23/2014 6:26 PM EDT 5 mg/hr 5 mL/hr 5% 100 mL infusion 5 mg/hr (5 mL/hr), Intravenous, CONTINUOUS, Starting on Tue12/23/14 at 1830, Until Tue12/25/14 at 1736, Infusion: ? ? Titrate to maintain heart rate of 80-110 ; Call MD for heart less than 60. Initiate infusion at 5 mg/hr and increase every 30 minutes by 5 mg/hr to a maximum dose of 15 mg/hr. diphenhydrAMINE (BENADRYL) capsule 25 mg Given 12/24/2014 1:50 PM EDT 25 mg 25 mg, Oral, ONCE, 1 dose, On Tue12/24/14 at 1415, Cath (Day of Procedure), Routine diphenhydrAMINE (BENADRYL) capsule 50 mg Given 12/24/2014 9:36 PM EDT 50 mg 50 mg, Oral, NIGHTLY PRN, Starting on Tue12/24/14 at 0037, Until Tue12/25/14 at 1736, Itching, Sleep, Routine Given 12/24/2014 12:41 AM EDT 50 mg famotidine (PEPCID) tablet 20 mg Given 12/25/2014 8:48 AM EDT 20 mg 20 mg, Oral, 2 TIMES DAILY, First dose on Tue12/24/14 at 0100, Until Discontinued, Routine Given 12/24/2014 8:09 PM EDT 20 mg Given 12/24/2014 8:09 AM EDT 20 mg heparin (porcine) 25,000 unit/500 mL (50 unit/mL) infusion 1 dose, Starting on Tue12/23/14 at 1701, Until Tue12/23/14 at 1800, THI CAMACHO: cabinet override heparin 25,000 units in Rate/Dose Change 12/24/2014 1:00 1,300 Unit s/hr 26 mL/hr dextrose 5% 500 mL AM EDT infusion 350-7,000 Units/hr (7-140 mL/hr), Intravenous, CONTINUOUS, Starting on Tue12/23/14 at 1830, Until Tue12/25/14 at 1736, Patient Weight 85-89 kg Initial dose - 1,000 units/hr = 20 mL/hr aPTT less than 60 sec - increase by 350 units/hr = 7 mL/hr aPTT 60-79 sec- increase by 150 units/hr = 3 mL/hr aPTT 80-114 sec - no change aPTT 115-129 sec - decrease by 100 units/hr = 2 mL/hr aPTT 130-145 sec - stop infusion for 30 min then decrease by 150 units/hr = 3 mL/hr aPTT greater than 145 sec - stop infusion for 60 min then decrease by 250 units/hr = 5 mL/hr aPTT greater than 145 sec X 2 - call warehouse assistant See Bolus dosing guidance for aPTT values less than 80 seconds under PRN medications Repeat aPTT 6 hours after initiating heparin. Then 6 hours after each dose adjustment. When 2 consecutive aPTT within target range of 80 - 114 seconds, change aPTT to once every 24 hours with A.M. labs while on heparin. RN to order required aPTT - Per Protocol, Routine Rate/Dose Change 12/23/2014 9:08 PM EDT 1,150 Units/hr 23 mL/hr New Bag 12/23/2014 6:27 PM EDT 1,000 Units/hr 20 mL/hr losartan (COZAAR) tablet 25 mg Given 12/25/2014 8:48 AM EDT 25 mg 25 mg, Oral, DAILY, First dose on Tue12/24/14 at 1100, Until Discontinued, Routine Given 12/24/2014 12:06 PM EDT 25 mg magnesium oxide (MAG-OX) tablet 600 mg Given 12/24/2014 12:15 AM EDT 600 mg 600 mg, Oral, ONCE, 1 dose, On Tue12/23/14 at 2230, STAT meTOPROLOL tartrate (LOPRESSOR) tablet 2 5 mg Given 12/25/2014 12:07 PM EDT 25 mg 25 mg, Oral, EVERY 6 HOURS SCHEDULED, First dose on Tue12/23/14 at 1815, Until Discontinued, STAT Given 12/25/2014 6:15 AM EDT 25 mg Given 12/25/2014 12:58 AM EDT 25 mg nitroGLYcerin 50 mg in Rate/Dose Verify 12/24/2014 1:00 AM 5 mcg/min 1.5 mL/hr dextrose 5% 250 mL EDT infusion 10 mcg/min (3 mL/hr), Intravenous, CONTINUOUS, Starting on Tue12/23/14 at 1830, Until Tue12/25/14 at 1736, Initiate at 10 mcg/minute for pain not responsive to sublingual nitroGLYcerin and if SBP is 100 mmHG or greater. Increase dose 10 mcg/minute every 5 minutes if SBP is 100 mmHG or greater to maximum dose 100 mcg/minute. Titrate to pain 3/10 or less Hold for SBP less than 90 mmHG AND call provider, Routine Rate/Dose Change 12/23/2014 9:06 PM EDT 10 mcg/min 3 mL/hr New Bag 12/23/2014 6:29 PM EDT 15 mcg/min 4.5 mL/hr nitroGLYcerin 50 mg/250 mL (200 mcg/mL) infusion 1 dose, Starting on Tue12/23/14 at 1701, Until Tue12/23/14 at 1801, THI CAMACHO: cabinet override perflutren protein-A microspheres (OPTISON) Given 12/11 9:00 AM EDT 2.6 mLs 0.22 mg/mL injection 2.6 mL 2.6 mL, Intravenous, ONCE PRN, 1 dose, Starting on Tue12/24/14 at 1002, Until Tue12/24/14 at 0900, Per Protocol, Routine potassium chloride (K-DUR/KLOR-CON) extended Given 12:15 AM EDT 40 mEq release tablet 40 mEq 40 mEq, Oral, ONCE, 1 dose, On Tue12/23/14 at 2230, STAT sodium chloride 0.9% infusion New Bag 12/24/2014 11:39 AM EDT 125 mL/hr 125 mL/hr 125 mL/hr, Intravenous, CONTINUOUS, Starting on Tue12/24/14 at 1145, Until Tue12/24/14 at 1601, Cath (Day of Procedure) sodium chloride 0.9% New Bag 12/24/2014 4:45 PM EDT 125 mL/hr 125 mL/hr Left Arm infusion 125 mL/hr, Intravenous, CONTINUOUS, Starting on Tue12/24/14 at 1645, Until Tue12/25/14 at 0044 documented in this encounter Active and Recently Administered Medications Times are shown in EDT. Scheduled Medication Order 12/23/2014 12/24/2014 12/25/2014 aspirin EC tablet 81 mg (CANCELED) 0809 (Given - Provider: Zay Kaplan RN) 0849 (Given - Provider: Zay Kaplan RN) 81 mg, Oral, DAILY, First dose on Tue at 0900, Until Discontinued, Routine atorvastatin (LIPITOR) tablet 80 mg 1748 (Given - Provider: Zay Kaplan RN) 80 mg, Oral, EVERY EVENING, First dose o n Tue12/24/14 at 1700, Until Discontinued, Routine cholecalciferol (Vitamin D3) tablet 1,000 Units (CANCELED) 0810 (Given - Provider: Zay Kaplan RN) 0848 (Given - Provider: Zay Kaplan RN) 1,000 Units, Oral, DAILY, First dose on Tue12/24/14 at 0900, Until Discontinued, Routine clopidogrel (PLAVIX) tablet 75 mg 0848 (Given - Provider: Zay Kaplan RN) 75 mg, Oral, DAILY, First dose on Tue at 0900, Until Discontinued, Routine diaZEPam (VALIUM) tablet 5 mg (COMPLETED) 1351 (Given - Provider: Zay Kaplan RN) 5 mg, Oral, ONCE, 1 dose, Tue12/24/14 at 1415, Cath (D ay of Procedure), Routine diphenhydrAMINE (BENADRYL) capsule 25 mg (COMPLETED) 1350 (Given - Provider: Zay Kaplan RN) 25 mg, Oral, ONCE, 1 dose, Tue12/24/14 a t 1415, Cath (Day of Procedure), Routine famotidine (PEPCID) tablet 20 mg (CANCELED) 0100 (Not Given - Provider: Madalyn Becker RN - Reason: Medication not available)0809 (Given - Provider: Zay Kaplan RN)2008 (Given - Provider: Kyle Lackey RN) 0848 (Given - Provider: Zay Kaplan RN) 20 mg, Oral, 2 TIMES DAILY, First dose o n Tue12/24/14 at 0100, Until Discontinued, Routine losartan (COZAAR) tablet 25 mg 1206 (Given - Pro vider: Zay Kaplan RN) 0848 (Given - Provider: Zay Kaplan, FRANK) 25 mg, Oral, DAILY, First dose on Tue at 1100, Until Discontinued, Routine magnesium oxide (MAG-OX) tablet 600 mg (COMPLETED) 14 (Given - Provider: Madalyn Becker, FRANK) 600 mg, Oral, ONCE, 1 dose, Tue12/23/14 at 2230, STAT meTOPROLOL tartrate (LOPRESSOR) tablet 25 mg (CANCELED ) 1842 (Given - Provider: Zay Kaplan, FRANK) 0039 (Given - Provider: Madalyn saul RN)0642 (Given - Provider: Madalyn Bekcer, FRANK)1136 (Given - Provider: Zay Kaplan, FRANK)1748 (Given - Provider: Zay Kaplan, FRANK) 0058 (Given - Provider: Kyle Lackey, FRANK)0615 (Given - Provider: Kyle Lackey RN)1207 (Given - Provider: Zay Kaplan, FRANK) 25 mg, Oral, EVERY 6 HOURS SCHEDULED, Fi rst dose on Tue12/23/14 at 1815, Until Discontinued, STAT potassium chloride (K-DUR/KLOR-CON) extended release tablet 40 mEq (COMPLETED) 14 (Given - Provider: Madalyn Becker, FRANK) 40 mEq, Oral, ONCE, 1 dose, Tue12/23/14 at 2230, STAT Continuous Medication Order 12/23/2014 12/24/2014 12/25/2014 DILTiazem 100 mg in dextrose 5% 100 mL infusion (CANCE LED) 182 (Continued Bag - Provider: Zay Kaplan, FRANK)183 (Paused - Provider: Zay Kaplan, FRANK) 5 mg/hr (5 mL/hr), Intravenous, CONTINUO US, Starting Tue12/23/14 at 1830, Until Tue12/25/14 at 1736, Infusion: ? ? Titrate to maintain heart rate of 80-110 ; Call MD for heart less than 60. Initiate inf usion at 5 mg/hr and increase every 30 m inutes by 5 mg/hr to a maximum dose of 15 mg/hr. heparin 25,000 units in dextrose 5% 500 mL infusion (C ANCELED) 1826 (New Bag - Provider: Zay Kaplan, RN)2107 (Rate/Dose Change - Provider: Madalyn Becker, FRANK) 010 (Rate/Dose Change - Provider: Madalyn Becker RN)1421 (Stopped - Provider: Loc Parra RN) 350-7,000 Units/hr (7-140 mL/hr), Intrav enous, at 7-140 mL/hr, CONTINUOUS, Starting 12/23/14 at 1830, Until Tue12/25/14 at 1736, Patient Weight 85-89 kg Initial dose - 1,000 units/hr = 20 mL/hr aPTT less than 60 sec - increase by 350 unit s/hr = 7 mL/hr aPTT 60-79 sec- increase by 150 units/hr = 3 mL/hr aPTT 80-114 sec - no change aPTT 115-129 sec - decrease by 100 units/hr = 2 mL/hr aPTT 130-145 s ec - stop infusion for 30 min then decre ase by 150 units/hr = 3 mL/hr aPTT greater than 145 sec - stop infusion for 60 min then decrease by 250 units/hr = 5 mL/hr aPTT greater than 145 sec X 2 - call ho use officer See Bolus dosing guidance for aPTT values less than 80 seconds under PRN medications Repeat aPTT 6 hours after initiating heparin. Then 6 hours after each dose adjustment. When 2 consecut kris aPTT within target range of 80 - 114 seconds, change aPTT to once every 24 hours with A.M. labs while on heparin. RN to order required aPTT - Per Protocol, Routine nitroGLYcerin 50 mg in dextrose 5% 250 mL infusion (CA NCELED) 1828 (New Bag - Provider: Zay Kaplan, FRANK)2105 (Rate/Dose Change - Provider: Madalyn Becker, FRANK) 0100 (Rate/Dose Verify - Provider: Madalyn Becker RN)0620 (Stopped - Provider: Madalyn Becker, FRANK) 10 mcg/min (3 mL/hr), Intravenous, at 3 mL/hr, CONTINUOUS, Starting 12/23/14 at 1830, Until Tue12/25/14 at 1736, Initiate at 10 mcg/minute for pain not responsive to sublingual nitroGLYcerin and if S BP is 100 mmHG or greater. Increase dose 10 mcg/minute every 5 minutes if SBP is 100 mmHG or greater to maximum dose 100 mcg/minute. Titrate to pain 3/10 or less Hold for SBP less than 90 mmHG AND call provider, Routine sodium chloride 0.9% infusion (CANCELED) 1139 (New Bag - Provider: Zay Kaplan, RN) 125 mL/hr, at 125 mL/hr, Intravenous, CO NTINUOUS, Starting Tue12/24/14 at 1145, Until Tue12/24/14 at 1601, Cath (Day of Procedure) sodium chloride 0.9% infusion () 1645 (New Bag - Provider: Whit Hightower RN - Comment: over 8 hours, 1000ml total) 0052 (Stopped - Provider: Kyle Lackey RN) 125 mL/hr, at 125 mL/hr, Intravenous, CO NTINUOUS, Starting Tue12/24/14 at 1645, Until Tue12/25/14 at 0044 PRN Medication Order 12/23/2014 12/24/2014 12/25/2014 bivalirudin (ANGIOMAX) 250 mg in sodium chloride 0.9% 50 mL infusion (LIFE SKILLS TRAINER) (CANCELED) 1522 (New Bag - Provider: Edgard Brantley, FRANK)1550 (Stopped - Provider: Joy Brantley RN) CONTINUOUS PRN, Starting Tue12/24/14 at 1522, Until Tue12/24/14 at 1601, Cath (Intra-Procedure), Routine bivalirudin (ANGIOMAX) bolus from bag (CANCELED) 1518 (Given - Provider: Leon García MD) ONCE PRN, Starting e 12/24/14 at 1518, Until Tue12/24/14 at 1601, Intra- Operative (Intra-Procedure), Routine clopidogrel (PLAVIX) tablet (CANCELED) 1 518 (Given - Provider: Leon García MD) ONCE PRN, Starting Tue12/24/14 at 1518, Until Tue12/24/14 at 1601, Intra- Operative (Intra-Procedure), Routine diphenhydrAMINE (BENADRYL) capsule 50 mg (CANCELED) 0041 (Given - Provider: Madalyn Becker, RN)2136 (Given - Provider: Kyle Lackey, FRANK) 50 mg, Oral, NIGHTLY PRN, Starting Tue at 0037, Until Tue12/25/14 at 1736, Itching, Sleep, Routine fentaNYL 50 mcg/mL multi-dose injection (CANCELED) 1441 (Given - Provider: Joy Brantley RN) ONCE PRN, Starting Tue12/24/14 at 1441, Until Tue12/24/14 at 1601, Intra- Operative (Intra-Procedure), Routine iohexol (OMNIPAQUE) 350 mg/mL solution (CANCELED) 1600 (Given - Provider: Joy Brantley RN) ONCE PRN, Starting Tue12/24/14 at 1600, Until Tue12/24/14 at 1601, Cath (Intra- Procedure), Routine midazolam (PF) (VERSED) 1 mg/mL multi-dose injection (CANCEL ED) 1441 (Given - Provider: Joy Brantley RN) ONCE PRN, Starting Tue12/24/14 at 1441, Until Tue12/24/14 at 1601, Cath (Intra- Procedure), Routine nitroGLYcerin (NITROSTAT) SL tablet 0.4 mg 0.4 mg, Sublingual, EVERY 5 MIN PRN, Sta rting Tue12/24/14 at 0037, Until Tue12/25/14 at 1736, Chest pain, May repeat every 5 minutes for a total of three doses. Notify provider if chest pain not relieve d with nitroglycerin. Do not administer nitroglycerin if the patinet has received or taken phosphodiesterase (PDE-5) inhibitors such as sildenafil, tadalafil or vardenafil within the last 24 to 72 hours., Routine nitroGLYcerin 100 mcg/mL intracoronary dilution (CANCELED) 1449 (Given - Provider: Leon García MD)1504 (Given - Provider: Leon García MD)1549 (Given - Provider: Leon García MD) ONCE PRN, Starting Tue12/24/14 at 1449, Until Tue12/24/14 at 1601, Cath (Intra- Procedure), Routine perflutren protein-A microspheres (OPTIS ON) 0.22 mg/mL injection 2.6 mL (COMPLETED) 0900 (Given - Provider: Michelet saul) 2.6 mL, Intravenous, ONCE PRN, 1 dose, S tarting Tue12/24/14 at 1002, Until Tue12/24/14 at 0900, Per Protocol, Routine documented in this encounter Care Teams Race Steward Relationship Specialty Start Date End Date Amisha Thakkar MD PCP - General 12/25/[address] [place] [address] documented as of this encounter
--- OUTSIDE RECORDS SUMMARY | 2022-02-12 01:07 | XMS_ITS | Encounter Summary ---
:1950 Author Organization [facility] Address [address] [place] [address] Care Team Providers Name Role Phone Unavailable Primary Care Provider Unavailable Source Comments This document is intended for payment and operations only. Any dissemination,distribution, or copying of this information is strictly prohibited.[facility] Encounter Details Date Type Department Care Team Description 07/30/2021 Hospital CONVERSION DEP Kristy Hager Constipation, unspecified; Encounter (Mapping) RADHA Veloz Other specified postprocedural states [id number] [id number] [place], [place] [phone] [id number] Social History Tobacco Use Types Packs/Day Years Used Date Never Assessed Sex Assigned at Date Recorded Not on file documented as of this encounter Plan of Treatment Not on filedocumented as of this encounter Procedures Procedure Name Priority Date/Time Associated Comments Diagnosis XR ABDOMEN 2 VIEWS Routine 07/30/2021 3:59 Result s for this POSTEROANTERIOR W PM EST procedure are in DECUBITUS the results section. documented in this encounter Results XR Abdomen 2 Views Posteroanterior W Decubitus (07/30/2021 3:59 PM EST) Anatomical Region Laterality Modality Abdomen N/A Digital Radiography Specimen (Source) Anatomical Collection Method Collection Time Re ceived Time Location / / Volume Laterality 07/30/2021 3:27 PM EST Narrative 07/30/2021 4:03 PM EST EXAM: XR ABDOMEN FLAT/UPRIGHT AND/OR DECUB HISTORY: CONSTIPATION COMPARISON: There are no relevant prior studies available for comparison. TECHNIQUE: Supine and upright views of t he abdomen. FINDINGS: There is no free air. There is a nonobstructive bowel gas pattern. There are no air fluid levels. Moderate diffuse stool burden. IMPRESSION: No acute findings. Dictating Franklyn Andrews Dictated 07/30/2021 16:[address] Hill, Location: [id number] ? Final Signed by: ??FRANKLYN HILL MD EPH ? 07/30/21 16:03 Procedure Note rFanklyn Hill MD - 2021 EXAM: XR ABDOMEN FLAT/UPRIGHT AND/OR DEC UB HISTORY: CONSTIPATION COMPARISON: There are no relevant prior studies available for comparison. TECHNIQUE: Supine and upright views of t he abdomen. FINDINGS: There is no free air. There is a nonobstructive bowel gas pattern. There are no air fluid levels. Moderate diffuse stool burden. IMPRESSION: No acute findings. Dictating Franklyn Andrews Dictated 07/30/2021 16:[address] Hill, Location: [id number] Final Signed by: FRANKLYN HILL MD 07/30/21 16:03 Emory Carbajal APRN IMG XR PROCEDURES documented in this encounter Visit Diagnoses Diagnosis Constipation, unspecified Other specified postprocedural states documented in this encounter
--- OUTSIDE RECORDS SUMMARY | 2022-02-12 01:07 | XMS_ITS | Clinical Summary ---
:1950 Author Organization [facility] [place] [address] Care Team Providers Name Role Phone Amisha Thakkar MD Primary Care Provider Allergies Active Allergy Reactions Severity Noted Date Comments Lisinopril Other (See Comments) 12/23/2014 Cough Medications Medication Sig Dispensed Refills Start Date End Date Status Tqawgyarkml-Iebjrieui-Da 0 12/09/2005 Active t C-Mn 500-400 mg Cap Glucosamine Sulfate 500 Take 1,000 mg by 0 Active mg Tablet mouth daily. Cholecalciferol, Vitamin Take by mouth. 0 Active D3, 1,000 unit Capsule aspirin 81 mg Tablet, Take 81 mg by 0 Active Delayed Release (E.C.) mouth daily. diphenhydrAMINE Take 50 mg by 0 Active (BENADRYL) 25 mg Capsule mouth nightly as needed for Itching or Sleep. atorvastatin (LIPITOR) Take 1 tablet by 30 tablet 2 12/25/2014 Active 80 mg Tablet mouth every evening. clopidogrel (PLAVIX) 75 Take 1 tablet by 90 tablet 3 5 Active mg Tablet mouth daily. losartan (COZAAR) 25 mg Take 1 tablet by 30 tablet 2 5 Active Tablet mouth daily. nitroGLYcerin Place 1 tablet 25 tablet 0 12/25/2014 Active (NITROSTAT) 0.4 mg under the tongue Tablet, Sublingual every 5 minutes as needed for Chest pain. warfarin (COUMADIN) 5 mg Take 1 tablet by 30 tablet 2 12/26/19 15 Active Tablet mouth daily. Active Problems Problem Noted Date Hypertension 12/24/2014 Hyperlipidemia 12/24/2014 Atrial fibrillation with RVR, paroxysmal, CHADS2-VASc= 3 12/23/2014 Overview: 09/2014: VR of 160 bpm. Spontaneously co nverted. Non-ST elevation myocardial infarction (NSTEMI) 2014 Overview: 12/2014: cp in context of AF with RVR bu t recurrent cp during well rate controlled AF. Ruled in. Cath showed high grade pLAD. CHIQUITA placed. Small distal edge dissection. Plan is for 1 month of triple ther apy, then reduce to Coumadin and clopido grel alone. Family History Medical History Relation Comments Cerebrovascular Accident Father Coronary Artery Disease Father Heart Disease Father Chronic Obstructive Pulmonary Disease Mother Relation Status Comments Father Mother Social History Tobacco Use Types Packs/Day Years Used Date Never Smoker Smokeless Tobacco: Never Used Alcohol Use Standard Drinks/Week Comments Yes 1.7 (1 standard drink = 0.6 oz pure alco hol) Sex Assigned at Date Recorded Not on file Last Filed Vital Signs Vital Sign Reading [...] Mass Index 29.1 12/25/2014 3:16 AM EDT Plan of Treatment Health Maintenance Due Date Last Done Comments Covid-19 Vaccine (#1) 1953 Hepatitis C Screening 1966 Tdap adult 1967 Tetanus vaccine 1967 Colonoscopy 1993 Zoster vaccine (1 of 2) 1998 Advance Directive 2003 Pneumoccocal Vaccine: 65+ (1 - PCV) 2013 Lipid Screening 12/25/2019 12/24/2014 Influenza (Flu) vaccine (1 of 1 - Influenza standard 02/11/2022 series) Advance Directives Latest Code Status on File Code Status Date Activated Date Inactivated Comments Full Code 12/24/2014 12:37 AM 12/25/2014 5:37 PM Does patient have decision making capacity? Yes, order is based on Patient wishes. Full Code 12/24/2014 12:07 AM 12/24/2014 12:37 AM Order Status: Initial Order Does patient have decision making capacity? Yes, Order is based on Patients wishes. Care Teams Nurse Orthopaedic Relationship Specialty Start Date End Date Amisha Thakkar MD PCP - General 12/25/[address] [place] [address]
--- OUTSIDE RECORDS SUMMARY | 2022-02-12 01:07 | XMS_ITS | Clinical Summary ---
:1950 Author Organization [facility] Address [address] [place], [place] [id number] Care Team Providers Name Role Phone Unavailable Primary Care Provider Unavailable Social History Tobacco Use Types Packs/Day Years Used Date Never Assessed Sex Assigned at Date Recorded Not on file Plan of Treatment Not on file Insurance Payer Benefit Plan / Subscriber ID Effective Dates Phone Addre ss Type Group MEDICARE MEDICARE A/B [id number] 2013-Maria G [phone] PO CHAI [id number] 2005 Medicare nt 5 [place] [phone] Joshua Mohr Personal/Famil Self 1950 [address] (Home) [place], [facility] [id number]
--- OUTSIDE RECORDS SUMMARY | 2022-02-12 01:07 | XMS_ITS | Encounter Summary ---
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 [phone] [place], [place] [address] (Wo rk) Social History Tobacco Use Types Packs/Day Years [...] Joshua Mohr Patient Age: 64 y.o. Language: Monegasque Race: White Ethnicity: Not nor Admit date: [...] cardiac rehab Inpatient Provider Contact Information: ALFREDO Ashely ZACHARY, NITROGLYCERIN NEUTRALIZER [phone] Discharge Diagnoses (Hospital Problems) and Secondary Diagnoses [...] Mr. Mohr presents as a transfer from [facility] for mgt new onset A. Fib with [...] lasted 1-2 hrs. 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 He denies any recent flu like illness, alcohol abuse, illicit drug use nor is there any excessive consumption of caffineated drinks. He denies any exertional CP, SOB, cough, PND, pedal edema nor calf tenderness. Pt recently travelled from [place] to [place] in October 2014 His drove him to [facility], where he was noted to be hemodynamically [...] gtt prior to transfer. Upon arrival @ [facility] he had 4/10 CP which resolved after increasing Nitro to 20mcg/min. At [facility]: Vitals: BP 129/87 - 128/53, HR 102-163, [...] angiography. The patient went to the cardiac assistant laboratory director for a diagnostic cath which showed proximal [...] The patient converted independently without intervention. His DYOWE0Vxml sore is 2 for age and hypertension. [...] Specifically ask about this and similar medications: Pwafcghdbue-Kwjlbiyit-Axk C-Mn 500-400 mg Cap New Medications Dose [...] by mouth daily. 1000 mg Refills: 0 Gpxmidzylmf-Csdxkhyol-Zti C-Mn 500-400 mg Cap Refills: 0 STOPPED [...] not take or discontinue any prescription or ipps-jlg-mbcxxcj medications without asking your doctor or pharmacist [...] appointments: During 8am-5pm Tuesday through Tuesday call [phone] to speak with a nurse in the cardiology clinic All other times call [phone] and ask to speak to the demolitionist digital communications manager. Return to work: Retired Driving: No driving for 48 hours after catheterization. Follow up Appointments: INR check Tuesday December 30, 2014 Go to hospital lab with lab slip, results to AMISHA THAKKAR MD PCP Dr. Amisha Thakkar December 31, 2014 at 8:[address] Brenner February 04, 2015 1:30 pm Future Appointments and Orders Future Orders Complete By Expires Prothrombin Time [PUB886 Custom] 12/25/2014 12/25/2015 Process Instructions: Scheduling Instructions: Comments: Questions: Should this service/procedure be billed to the research sponsor?: Referral to Cardiac Rehab [ZQI901 Custom] As directed Process Instructions: If no progress note charted, please enter Clinical details in comments. Scheduling Instructions: Questions: My question or request is: cardiac rehab @ [facility] Discharge References/Attachments None Alfredo JOSE ALBERTO Bains 12/25/2014 documented in this encounter Discharge Instructions Discharge InstructionsAlfredo Bains, JOSE ALBERTO - 12/25/2014 12:04 PM EDT [...] not take or discontinue any prescription or jrke-iio-pnyzwie medications without asking your doctor or pharmacist [...] appointments: During 8am-5pm Tuesday through Tuesday call [phone] to speak with a nurse in the cardiology clinic All other times call [phone] and ask to speak to the demolitionist digital communications manager. Return to work: Retired Driving: No driving for 48 hours after catheterization. Follow up Appointments: INR check Tuesday December 30, 2014 Go to hospital lab with lab slip, results to AMISHA THAKKAR MD PCP Dr. Amisha Thakkar December 31, 2014 at 8:[address] Brenner February 04, 2015 1:30 pm [...] nightly as needed for Itching or Sleep. Odlwlibomua-Vkuftejvy-Mvn 0 12/09/2005 C-Mn 500-400 mg Cap meTOPROLOL succinate Take 1 tablet by 30 tablet 2 5 12/25/2015 (TOPROL-XL) 100 mg Tablet mouth daily. Sustained Release 24 hr documented as of this encounter Progress Notes Carolyne Liz DT - 12/25/2014 2:43 PM EDT Nutrition Services - Education Note Joshua Mohr : 1950 AGE: 64 y.o. Patient Active Problem List Diagnosis Date Noted ??? *Fboakadm-Vxm-DI elevation myocardial infarction (NSTEMI) 12/23/2014 ??? Hospital-Atrial fibrillation with RVR, paroxysmal, CHADS2-VASc=3 12/23/2014 Priority: High ??? Hospital-Hypertension 12/24/2014 ??? Hospital-Hyperlipidemia 12/24/2014 Reason for Nutrition Intervention: Consult Diet Order: [facility] Appetite: Good Food allergies: NKFA Ht Readings [...] monitor and follow up weekly. Nutrition Plan: [facility] diet. Encourage good po intake. Monitor weight. Support and encouragement provided. Nutrition services to follow weekly thru hospital course unless consulted in the interim. MARÍA Richey Leon Phoenix MD - 12/25/2014 10:12 AM EDT Images from the original note were not included. Inpatient Cardiology Progress Note Patient Name: Joshua Mohr Service: MUSIC MIXER / PA Responsible Attending: Leon Phoenix MD [...] Labs 12/24/14 06 INR 1.0 Recent Labs 12/25/1434212/24/14 0612/23/14 1839 NA 141 141 142 K 4.1 4.5 3.7 CL 106 105 105 CO2 24 23 21* BUN 16 17 13 CREATININE 0.93 0.78* 0.73* Recent Labs 12/24/14 06 AST 25 ALT 25 ALKPHOS 39* BILITOT 0.4 BILIDIR 0.1 Recent Labs 12/25/1434212/24/1462612/23/14 1839 CALCIUM 9.0 9.2 9.0 MAGNESIUM -- 0.85 0.76 PHOS -- 2.4* -- Recent Labs 12/25/14 03412/24/14 1745 12/24/14 06 CK 109 156 190 [...] the year that the Plavix is needed. ZFPRK1QIAp score of 3 (age, hypertension and CAD) so warfarin will be started. Goal INR between 2.0-3.0, will allow him to drift upward without bridging. Warfarin to be followed up by his PCP. Plan: NSTEMI On aspirin, statin, beta swapna, Plavix , ARB Cardiac cath as above Afib with RVR Converted last night to sinus rhythm Continue on beta swapna dosing TBVZP7KSQm score is 2 for (hypertension, age) Will start on warfarin dosing, drift up to goal INR between 2.0-3.0 Hypertension SBP range 100-130s Stop hctz Hyperlipidemia No statin at home, started on atorvastatin 80 mg TC 138, HDL 46, LDL 80, Trig 88 Discussed with Leon Phoenix MD Alfredo Zachary, NITROGLYCERIN NEUTRALIZER 12/25/2014 Cardiology Attending Note I interviewed and [...] OK for discharge. Leon Phoenix MD, MS, [facility] staff research nurse/ pager [phone] This patient meets or has met medical criteria to require an inpatient level of care, i.e. a minimumof two midnights in the hospital with multiple complex problems. Юлия Stovall RN - 12/24/2014 1:11 PM EDT Office of Care Management (OCM) / Nailer Machine(CM)/ Initial Assessment Discussed patient with Provider Team [...] to next MD appt. To scan in [facility]. HEALTH /PRESCRIPTION COVERAGE: Medicare AB, [employer] CURRENT HOME/COMMUNITY SERVICES/EQUIPMENT: None HVAC INSTALLER REFERRAL: N/A PRIMARY CARE PHYSICIAN: None None None POTENTIAL DISCHARGE NEEDS: None known at this time ANTICIPATED BARRIERS TO DISCHARGE: None known at this time TRANSPORTATION @ D/C: Private transport to home in vehicle/ [place] PLAN: CM will continue to monitor progress, follow for continuity of care and assist with discharge planning while hospitalized Service: Cardiology Nailer Machine: Sabra Pitt RN, BS, pager [phone] & Юлия Stovall RN, BS, pager [phone] . Leon Phoenix MD - 12/24/2014 9:59 AM EDT Images from the original note were not included. Inpatient Cardiology Progress Note Patient Name: Joshua Mohr Service: MUSIC MIXER / PA Responsible Attending: Leon Phoenix MD [...] 0620) ??? DILTiazem infusion (ADD-vantage) Stopped (12/23/14 183) PRN Meds:diphenhydrAMINE, nitroGLYcerin, acetaminophen, heparin (porcine) Physical [...] and vitals reviewed. Lab Comments: Recent Labs 07/14/15 0627 07/13/15 1839 WBC 7.2 10.8* HGB 13.0* 13.5* HCT 38.4* 38.2* PLATELET 144* 171 Recent Labs 12/24/14626 INR 1.0 Recent Labs 12/24/1462612/23/14 1839 NA 141 142 K 4.5 3.7 CL 105 105 CO2 23 21* BUN 17 13 CREATININE 0.78* 0.73* Recent Labs 12/24/14626 AST 25 ALT 25 ALKPHOS 39* BILITOT 0.4 BILIDIR 0.1 Recent Labs 12/24/1462612/23/14 1839 CALCIUM 9.2 9.0 MAGNESIUM 0.85 0.76 PHOS 2.4* -- Recent Labs 12/24/1462612/24/14 0030 12/23/14 1839 CK 190 252* 320* [...] sinus rhythm Continue on beta swapna dosing GMQMM3Wlof score is 2 for (hypertension, age) Hypertension SBP range 100-120s Restart ARB today at lower dose Will need to follow trends Hyperlipidemia No statin at home TC 138, HDL 46, LDL 80, Trig 88 Discussed with Leon Phoenix MD Alfredo Bains, NITROGLYCERIN NEUTRALIZER 12/24/2014 Cardiology Attending Note I interviewed and [...] home in am. Leon Phoenix MD, MS, [facility] staff research nurse/ pager [phone] This patient meets or has met medical [...] stop del drip which initiated as ordered. 175 Pt complained of 4/10 L anterior chest [...] Inpatient Attending: Leon Phoenix MD PCP: SUMEET CANCHOLA DO Presenting Diagnosis/Chief Complaint: palpitations & chest pain [...] h/o palpitations, diaphoresis & chest pressure. Mr. Morh presents as a transfer from [facility] for t new onset A. Fib with [...] lasted 1-2 hrs. 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 He denies any recent flu like illness, alcohol abuse, illicit drug use nor is there any excessive consumption of caffineated drinks. He denies any exertional CP, SOB, cough, PND, pedal edema nor calf tenderness. Pt recently travelled from [place] to [place] in October 2014 His drove him to [facility], where he was noted to be hemodynamically [...] gtt prior to transfer. Upon arrival @ [facility] he had 4/10 CP which resolved after increasing Nitro to 20mcg/min. At [facility] : Vitals: BP 129/87 - 128/53, HR 102-163, Spo2 96% RA, T 36C Labs: K 3.7, HCO3 24, Creat 0.8, WBC 10, Hb 14.9, PLt 194, TSH 1.66, INR 1, Trop I 0.02-->1.05--> 3.49 (ULN 0.06) [facility] Meds: Nitro gtt, Heparin gtt, Dilt gtt, [...] as needed for Itching or Sleep. ??? Bkhdkzagxru-Asqykfhet-Ykh C-Mn 500-400 mg Cap Allergies: Allergies Allergen [...] in the outpatient cardiac rehabilitation program at [facility] was discussed. Patient agrees to a referral [...] Plan of Care Review 12/24/14 0605 12/25/14 07 Plan of Care Review Plan of Care [...] none Goal: Fall Prevention-Safe Patient Handling 12/25/14 0712/25/14 1017 Safety Interventions Safety Precautions/Fall Reduction supervised activity;food safety coordinator;room near unit station;nonskid shoes/slippers when out of [...] Ongoing (Interventions Implemented as Appropriate) 12/24/14 0605 12/24/14 1953 Plan of Care Review Plan of Care [...] Plan of Care Review 12/24/14 0605 12/24/14 08 Plan of Care Review Plan of Care [...] 1356 Safety Interventions Safety Precautions/Fall Reduction supervised activity;food safety coordinator;room near unit station;nonskid shoes/slippers when out of [...] Risk Med -- Goal: Infection Control 12/24/14 08 Safety Interventions Isolation Precautions standard precautions maintained Infection Prevention bronchial hygiene promoted;environmental surveillance;hydration promoted;nutrition promoted;promote handwashing;rest/sleep promoted Coping/Psychosocial Response Interventions Counseling calming techniques promoted;emotional support provided;relaxation techniques promoted;reassurance provided;understanding of situation facilitated;verbalization of feelings encouraged Goal: Discharge Needs Assessment 07/13/195612/24/14119912/24/14 1539 Discharge Needs Assessment Concerns to be [...] Control Outcome: Ongoing (Interventions Implemented as Appropriate) 12/23/14 17112/23/14199912/24/14 06 Safety Interventions Isolation Precautions -- -- standard [...] nts LAB SCAN 12/26/2014 12:00 AM EDT STACKER DRIVER SCAN 12/26/2014 12:00 AM EDT CARDIAC CATH [...] Routine 12/25/2014 3:43 Results f or this ([facility]) AM EDT procedure are i n the results section. CBC (WITH DIFF) Routine 12/25/2014 3:43 AM EDT CARDIAC ENZYMES STAT 12/24/2014 5:45 Results f or this ([facility]) PM EDT procedure are i n the [...] Routine 12/24/2014 6:27 Results f or this ([facility]) AM EDT procedure are i n the [...] ENZYMES STAT 12/24/2014 12:30 Results for this ([facility]) AM EDT procedure are i n the [...] STAT 12/23/2014 6:39 Results f or this ([facility]) PM EDT procedure are i n the [...] documented in this encounter Results SCAN DOC: STACKER DRIVER (12/26/2014 12:00 AM EDT) Narrative This result [...] 379 ms MUSE SYSTEM (Bezet) Calculated P [address] 70 degrees MUSE SYSTEM Calculated R [address] -3 degrees MUSE SYSTEM Calculated T [address] 21 degrees MUSE SYSTEM INTERPRETATION Sinus bradycardia [...] BMP w/fasting Glucose (12/25/2014 3:43 AM EDT) P athologist Signature Glucose 100 (H) 65 - [...] of Diabetes Mellitus, Position Statement from the [place] [employer] Association. ??Diabete s Care, Volume 33, Supplement 1, Jun 2009 BUN 16 10 - 20 mg/dL CERNER MILLENNIU M Creatinine 0.93 0.80 - 1.50 mg/dL CERNER MILL ENNIUM Comment: Please note that the pediatric reference intervals supplied above were not validated at [facility]. Results from pediatri c patients should be [...] the following links into your internet browser. [email or web address]/DHnkdep [email or web address]/DHMCnkf Specimen Anatomical Collection Method Collection Time Receive d Time (Source) Location / / Volume Laterality Blood specimen 12/25/2014 3:43 AM 015 3:57 (specimen) EDT AM EDT Resulting Agency Comment Spec In Lab Leon Phoenix MD CHEMISTRY ORDERABLES Performing Organization Address City/State/ZIP Code Phon e Number [place] [id number] CERNER MILLENNIUM Differential, Automated [...] Siu MD HEMATOLOGY ORDERABLES Performing Organization Address City/[facility]/ZIP [place] [address] CERNER MILLENNIUM (ABNORMAL) Hemogram [...] RDWCV 12.9 10.9 - CERNER 14.4 % MILLENNIUM MPV 11.9 9.0 - 12.0 CERNER fL MILLENNIUM Specimen Anatomical Collection Method Collection Time Receive d Time (Source) Location / / Volume Laterality Blood specimen 12/25/2014 3:43 AM 015 3:57 (specimen) EDT AM EDT Resulting Agency Comment Spec In Lab Jeronimo Siu MD HEMATOLOGY ORDERABLES Performing Organization Address City/[facility]/ZIP [place] [address] CERNER MILLENNIUM (ABNORMAL) Cardiac Enzymes (12/25/2014 3:43 AM EDT) P athologist Signature Troponin-T 0.13 (H) <=0.03 CERNER ng/mL MILLENNIUM Comment: 0.03 [...] consensus document of the Joint Society of Cardiology/[place] College o f Cardiology Committee for the redefinition of myocardial infarction. ? ?Journal of the [place] College of Cardiology 2000; 36: 959-969] CK, Total 109 0 - 200 unit/L CERNER MILLENNI UM Specimen Anatomical Collection Method Collection Time Receive d Time (Source) Location / / Volume Laterality Blood specimen 12/25/2014 3:43 AM 015 3:57 (specimen) EDT AM EDT Resulting Agency Comment Spec In Lab Leon Phoenix MD CHEMISTRY ORDERABLES Performing Organization Address City/State/ZIP [place] [address] TORI GAITANIUM (ABNORMAL) Cardiac Enzymes (12/24/2014 5:45 PM EDT) P athologist Signature Troponin-T 0.11 (H) <=0.03 CERNER ng/mL BAC ON TRAC Comment: 0.03 ng/mL: Represents the 99th percenti [...] consensus document of the Joint Society of Cardiology/[place] College o f Cardiology Committee for the redefinition of myocardial infarction. ? ?Journal of the [place] College of Cardiology 2000; 36: 959-969] CK, Total 156 0 - 200 unit/L TORI [employer] Specimen Anatomical Collection Method Collection Time Receive d Time (Source) Location / / Volume Laterality Blood specimen 12/24/2014 5:45 PM 015 6:01 (specimen) EDT PM EDT Resulting Agency Comment Spec In Lab Leon Phoenix MD CHEMISTRY ORDERABLES Performing Organization Address City/[facility]/ZIP [place] [address] [facility] [employer] EKG 12 Lead (12/24/2014 4:42 PM EDT) Component Value Ref Range Test Analysis Performed Pathologis t Method Time At Signature Ventricular rate 58 BPM MUSE SYSTEM Atrial Rate 58 BPM MUSE SYSTEM P-R Interval 140 ms MUSE SYSTEM QRS Duration 82 ms MUSE SYSTEM Q-T Interval 406 ms MUSE SYSTEM QTC Calculated 398 ms MUSE SYSTEM (Bezet) Calculated P [address] 62 degrees MUSE SYSTEM Calculated R [address] 7 degrees MUSE SYSTEM Calculated T [address] 38 degrees MUSE SYSTEM INTERPRETATION Sinus bradycardia with sinus arrhythmia MUSE SYSTEM Otherwise normal ECG When compared with ECG of 23-DEC-2014 17:24, Sinus rhythm has replaced Atrial fibrillation Vent. rate has decreased BY ??30 BPM T wave amplitude has increased in Anterior leads Confirmed by MD Angelic, Ronnie Capone ([id number]) on 12/25/2014 6:33:41 AM Specimen Anatomical Collection Method Collection Time Receive d Time (Source) Location / / Volume Laterality 12/24/2014 4:42 PM 5 6:33 EDT AM EDT Leon Phoenix MD ECG ORDERABLES Performing Organization Address City/[facility]/ZIP Code Phon e Number MUSE SYSTEM CARDIAC CATHETERIZATION (12/24/2014 4:03 PM EDT) Anatomical Region Laterality Modality Other Specimen (Source) Anatomical Location Collection Method / Collectio n Time Received Time / Laterality Volume Narrative 12/24/2014 5:14 PM EDT ?[facility] ? Cardiac Cathete rization/Intervention Report ? Patient Name: Marcin, Joshua Romero. ? Procedure Date: 12/24/2014 ? A #: [id number] ? Primary Physician: Ricky, Leon Serrato. ? Case #: [id number] ? File Name: [id number] ? Catheterization Order Number: [id number] ? [facility] ? Final Report [place], [place] ? Patient Name: ? Joshua H. Jason geron ?ID#: ?[id number] ? : ?1950 ? Procedure Date: ? December 24, 2014 ?Case #: ? [id number] ? Room: ? 1 ? Case Physician: ? Leon barr MManuela. ?Start: ?14:36 ?Fellow: ? Usman crowley MFelton ?Admission: ??12/23/2014 ? Discharge: ??12/25/2014 ? Referring [...] presented with: non -STEMI (w/i 7 days). [place] ?Cardiovascular Society angina c lass was IV. [...] procedures. ? Comments: ?Drug eluting stent (CHIQUITA) camillaan orlin. Clopidogrel 600 mg PO administered in ?the assistant laboratory director. Continue ASA 81 m g po daily, clopidogrel 75 mg po daily x ?12 mo. ?The attending physician was trever brizuela for the entire procedure. ?Dr. Leon García [...] note might be different from the original. [facility] Cardiac Catheterization/Intervention Re port Patient Name: Joshua Mohr Procedure Date: 12/24/2014 A #: [id number] Primary Physician: Leon García Case #: [id number] File Name: [id number] Catheterization Order Number: [id number] [facility] Final Report [place], [place] Patient Name: Joshua Mohr ID#: [id number] : 1950 Procedure Date: December 24, 2014 [...] presented with: non-STEMI ( w/i 7 days). [place] Cardi[employer] Society angina class was IV. This [...] 6 Fr Perclose was deployed at the [facility] femoral artery access site. This device [...] pidogrel 600 mg PO administered in the assistant laboratory director. Continue ASA 81 mg po ravi ly, [...] ORDERABLES (ABNORMAL) APTT (12/24/2014 12:23 PM EDT) P athologist Signature PTT 114 (H) 25 - [...] Organization Address City/State/ZIP [place] [address] CERNER MILLENNIUM (ABNORMAL) Urinalysis with microscopic (12/24/2014 10:38 AM EDT) Patholo gist Method Time Signature Glucose UA Negative [...] UA Clear Clear CERNER MILLENNIU M Spec [place] UA 1.020 1.002 - 1.030 CERNER MIL [...] Organization Address City/State/Z[place] [address] CERNER MILLENNIUM Echocardiogram Transthoracic(Leb) (12/24/2014 10:02 AM EDT) athologist Signature EF 55 HEARTLAB SYSTEM Anatomical Region Laterality Modality Other Specimen (Source) Anatomical Location Collection Method / Collectio n Time Received Time / Laterality Volume 12/24/2014 Narrative 12/24/2014 10:14 AM EDT Procedure: ?Transthoracic Echocardiogram Patient: ?MARCIN VELEZ Heather ?(Age): 1950(64y) Med Rec#: ? [id number] ?Sex: ?M ? Site Loc: ? [facility] ?Ht / Wt: ??182(cm)/87(kg) Pt. Loc: ?Adult Floor ? BSA: ?2.09 Study Date: ?? 12/24/2014 ?Pt. Type: Inpatient Tape: ? Referring: KHALIF Referring: Jeronimo Siu Reading: Daniel Dave ([id number]) Dye Boarding Machine Operator: Michelet Lord Diagnosis: *Angina pectoris (413.9) CPT Codes: *Echo Full (45047) *Spectral Doppler (33753) *Color Doppler (83659) *Optison (74715VN) Rhythm: ? Sinus BP: ? 120/66 SUMMARY: [...] E-wave Vmax ?0.9 ?m/sec ? MV deceleration fexg194.3 ? msec ? MV A-wave Vmax ?0.6 ?m/sec ? MV E:A ratio ?1.5 ?ratio ? LV septal e' Vmax ?? 0.1 ?m/sec ? LV E:e' septal ratio11 ? ratio ? Measurement Trending Name ? 12/24/2014 ? LVIDd (2D) ? 4. 88991904 LVIDs (2D) ? 2. 20822010 LA ESV BP (A/L) ?52.5 803 Wall Motion: Segment Name ?Rest ? Base-Anteroseptal ?? Normal ? Base-Anterior ? Normal ? Base-Anterolateral ??Normal ? Base-Posterolateral Normal ? Base-Inferior ? Normal ? Base-Inferoseptal ?? Normal ? Mid-Anteroseptal ?Normal ? Mid-Anterior ?Hypokinetic ? Mid-Anterolateral ?? Akinetic ? Mid-Posterolateral ??Akinetic ? Mid-Inferior ?Normal ? Mid-Inferoseptal ?Normal ? [place]-Septal ? Normal ? [place]-Anterior ? Normal ? [place]-Lateral ?Normal ? [place]-Inferior ? Normal ? [place]-Tip ?Normal ? This report has been electronically sign ed by: _ Daniel Dave M.D. ? 12/24/2014 10:13:56 Images reviewed and interpretation verif ied [facility] Cardiac Ultrasound Laboratory Procedure Note Daniel Dave MD - 12/24/2014Format ting of this note might be different from the original. Procedure: Transthoracic Echocardiogram Patient: MARCIN Romero (Age): (64y) Med Rec#: [id number] Sex: M Site Loc: [facility] Ht / Wt: 182(cm)/87(kg) Pt. Loc: Adult Floor BSA: 2.09 Study Date: 12/24/2014 Pt. Type: Inpatie nt Tape: Referring: KHALIF Referring: Jeronimo Siu Reading: Daniel Dave ([id number]) Dye Boarding Machine Operator: Michelet Lord Diagnosis: *Angina pectoris (413.9) CPT Codes: *Echo Full (74774) *Spectral Doppler (98941) *Color Doppler (28626) *Optison (75209GM) Rhythm: Sinus BP: 120/66 SUMMARY: 1. There [...] MV E-wave Vmax 0.9 m/sec MV deceleration blam825.3 msec MV A-wave Vmax 0.6 m/sec MV E:A ratio 1.5 ratio LV septal e' Vmax 0.1 m/sec LV E:e' septal ratio11 ratio Measurement Trending Name 12/24/2014 LVIDd (2D) 4.71178676 LVIDs (2D) 2.97294426 LA ESV BP (A/L) 52.5803 Wall Motion: Segment Name Rest Base-Anteroseptal Normal Base-Anterior Normal Base-Anterolateral Normal Base-Posterolateral Normal Base-Inferior Normal Base-Inferoseptal Normal Mid-Anteroseptal Normal Mid-Anterior Hypokinetic Mid-Anterolateral Akinetic Mid-Posterolateral Akinetic Mid-Inferior Normal Mid-Inferoseptal Normal [place]-Septal Normal [place]-Anterior Normal [place]-Lateral Normal [place]fer[facility] Normal [place] Normal This report has been electronically sign ed by: _ Daniel Dave M.D. 12/24/2014 10:13: 56 Images reviewed and interpretation verif ied [facility] Cardiac Ultrasound Laboratory Jeronimo Siu MD ECHO ORDERABLES (ABNORMAL) Cardiac Enzymes (12/24/2014 6:27 AM EDT) P athologist Signature Troponin-T 0.08 (H) <=0.03 CERNER ng/mL [facility] Comment: 0.03 ng/mL: Represents the 99th [...] consensus document of the Joint Society of Cardiology/[place] College o f Cardiology Committee for the redefinition of myocardial infarction. ? ?Journal of the [place] College of Cardiology 2000; 36: 959-969] CK, Total 190 0 - 200 unit/L [facility] UM Specimen Anatomical Collection Method Collection Time Receive d Time (Source) Location / / Volume Laterality Blood specimen Venous Draw / 12/24/2014 6:27 AM 2014 6:36 (specimen) Unknown EDT AM EDT Resulting Agency Comment Spec In Lab Jeronimo Siu MD CHEMISTRY ORDERABLES Performing Organization Address City/State/ZIP Code Phon e Number [place] [phone] [facility] (ABNORMAL) BMP w/fasting Glucose (12/24/2014 6:27 AM EDT) athologist Signature Glucose 116 (H) 65 - 99 CERNER Fasting mg/dL [facility] Comment: ?Fasting* Glucose Interpretive C riteria Normal [...] of Diabetes Mellitus, Position Statement from the [place] [employer]. ??Diabete s Care, Volume 33, Supplement 1, Jun 2009 BUN 17 10 - 20 mg/dL CERNER MILLENNIU M Creatinine 0.78 (L) 0.80 - 1.50 mg/dL CERNER MILL ENNIUM Comment: Please note that the pediatric reference intervals supplied above were not validated at [facility]. Results from pediatri c patients should be [...] the following links into your internet browser. [email or web address] [email or web address] Specimen Anatomical Collection Method Collection Time Receive d Time (Source) Location / / Volume Laterality Blood specimen 12/24/2014 6:27 AM 015 6:36 (specimen) EDT AM EDT Resulting Agency Comment Spec In Lab Jeronimo Siu MD CHEMISTRY ORDERABLES Performing Organization Address City/[facility]/ZIP [place] [address] CERNER MILLENNIUM Differential, Automated [...] Siu MD HEMATOLOGY ORDERABLES Performing Organization Address City/[facility]/ZIP Code Phon e Number COURT [address] CERNER MILLENNIUM (ABNORMAL) Hemogram (12/24/2014 [...] Siu MD HEMATOLOGY ORDERABLES Performing Organization Address City/[facility] [place] [address] CERNER MILLENNIUM Triglyceride (12/24/2014 6:27 AM EDT) athologist Signature Triglycerides 88 <=149 CERNER mg/dL MILLENNIUM Comment: Reference Range: Normal triglycerides: ??<150 mg/dL Borderline high: ??150-199 mg/dL High: ??200-499 mg/dL Very high: ??>sl=978 mg/dL KRUNAL 2001; [id number]):[id number] Specimen Anatomical Collection Method Collection Time Receive d Time (Source) Location / / Volume Laterality Blood specimen 12/24/2014 6:27 AM 015 6:36 (specimen) EDT AM EDT Resulting Agency Comment Spec In Lab Jeronimo Siu MD CHEMISTRY ORDERABLES Performing Organization Address City/[facility]/[place] [address] [facility] HDL/Cholesterol Profile (12/24/2014 6:27 AM EDT) athologist Signature Chol, Total 138 <=199 mg/dL [facility] Comment: Recommendations of the NCEP Adult Treatm ent Panel for the following risk cutoff thresholds for the [place] populatio n: Desirable: <200 mg/dL Borderline High: 200-239 mg/dL High: > or = 240 mg/dL HDL 46 >=40 mg/dL [facility] Comment: Reference range: ??Low HDL: ?? < 40 mg/dL ??Normal: ?40-60 mg/dL ??Desirable: > 60 mg/dL KRUNAL 2001; 285(19):4067-6805 Chol/HDL Ratio 3.0 ratio [facility] Comment: A Cholesterol to HDL ratio below 4:1 is desirable. ??Studies suggest that increased CAD risk occurs at ratios abov e 5 for females and above 6 for men. ? [place] [employer] Association ??(htt p://www.americanheart.org) ? Aysha Int Med, 1994; 121:641 ? AM J Med, 1998; 105(1A):48S Specimen Anatomical Collection Method Collection Time Receive d Time (Source) Location / / Volume Laterality Blood specimen 12/24/2014 6:27 AM 015 6:36 (specimen) EDT AM EDT Resulting Agency Comment Spec In Lab Jeronimo Siu MD CHEMISTRY ORDERABLES Performing Organization Address City/State/ZIP [place] [address] [facility] LDL Cholesterol, Direct (12/24/2014 6:27 AM EDT) athologist Signature LDL Chol 80 <=99 mg/dL [facility] Comment: The National Cholesterol Education Progr am (NCEP) has set the following guidelines for LDL Cholesterol: Reference range: ?? Optimal: ?<100 mg/dL ?? Near Optimal/Above Optimal: ?? 100-1 29 mg/dL ?? Borderline high: ?130-159 mg/dL ?? High: ? 160-189 mg/dL ?? Very high: ?>wu=521 mg/dL KRUNAL 2001: [id number]):[id number] Specimen Anatomical Collection Method Collection Time Receive d Time (Source) Location / / Volume Laterality Blood specimen 12/24/2014 6:27 AM 015 6:36 (specimen) EDT AM EDT Resulting Agency Comment Spec In Lab Jeronimo Siu MD CHEMISTRY ORDERABLES Performing Organization Address City/State/ZIP [place] [address] CERNER MILLENNIUM (ABNORMAL) Hemoglobin [...] Mellitus, Diabetes Care 2013; 36: Suppl. 1, A29-10 Est Avg Gluc 117 mg/dL CERNER MILLENNIUM Comment: eAG equivalents for HbA1c percentages: HbA1c(%) ?eAG(mg/dL) 6.0 ?126 6.5 ?140 7.0 ?154 7.5 ?169 8.0 ?183 8.5 ?197 9.0 ?212 9.5 ?226 10.0 ? 240 Limitations: The eAG calculation has not been validated on women, individuals below 18 years old and above 70 years old, and individuals with hemoglobinopathies. Additional resources are available on [facility] website: [email or web address]SAadacalc Marco ORR, Amanda J, Yoel R, et al. ??Tr anslating the A1C assay into estimated average glucose values. ??Diabetes Care 2008:31(8):9536-8386. Specimen Anatomical Collection Method Collection Time Receive d Time (Source) Location / / Volume Laterality Blood specimen 12/24/2014 6:27 AM 015 6:36 (specimen) EDT AM EDT Resulting Agency Comment Spec In Lab Jeronimo Siu MD CHEMISTRY ORDERABLES Performing Organization Address [facility]/ZIP Code Phon e Number [address] CERNER MILLENNIUM (ABNORMAL) APTT (12/24/2014 [...] Siu MD HEMATOLOGY ORDERABLES Performing Organization Address [facility] [place] [address] CERNER MILLENNIUM Prothrombin Time (12/24/2014 6:27 AM EDT) P athologist Signature PT 14.4 12.5 - 15.5 [...] Siu MD HEMATOLOGY ORDERABLES Performing Organization Address [facility] Phon e Number [address] CERNER MILLENNIUM (ABNORMAL) Hepatic Function Panel (12/24/2014 6:27 AM EDT) athologist Signature Total Protein 5.7 (L) 6.1 [...] Siu MD CHEMISTRY ORDERABLES Performing Organization Address [facility] [place] [address] CERNER MILLENNIUM TSH (12/24/2014 6:27 AM EDT) athologist Signature TSH 1.56 0.27 - 4.20 CERNER mcIU/mL MILLENNIUM Specimen Anatomical Collection Method Collection Time Receive d Time (Source) Location / / Volume Laterality Blood specimen 12/24/2014 6:27 AM 015 6:36 (specimen) EDT AM EDT Resulting Agency Comment Spec In Lab Jeronimo Siu MD CHEMISTRY ORDERABLES Performing Organization Address City/[facility]/ZIP Code Phon e Number [address] CERNER MILLENNIUM (ABNORMAL) Phosphorus (12/24/2014 6:27 AM EDT) P athologist Signature Phosphorus 2.4 (L) 2.5 - 4.5 CERNER mg/dL MILLENNIUM Specimen Anatomical Collection Method Collection Time Receive d Time (Source) Location / / Volume Laterality Blood specimen 12/24/2014 6:27 AM 015 6:36 (specimen) EDT AM EDT Resulting Agency Comment Spec In Lab Jeronimo Siu MD CHEMISTRY ORDERABLES Performing Organization Address City/[facility]/ZIP Code Phon e Number [address] CERNER MILLENNIUM Magnesium (12/24/2014 [...] Organization Address City/State/ZIP Code Phon e Number [address] CERNER MILLENNIUM (ABNORMAL) APTT (12/24/2014 12:30 AM EDT) P athologist Signature PTT 65 (H) 25 - 35 sec CERNER MILLENNIUM Comment: Recommended therapeutic PTT range for fu ll dose unfractionated heparin is 80-114 seconds. Specimen Anatomical Collection Method Collection Time Receive d Time (Source) Location / / Volume Laterality Blood specimen 12/24/2014 12:30 07/14/201 5 1:45 (specimen) AM EDT AM EDT Resulting Agency Comment Spec In Lab Jeronimo Siu MD HEMATOLOGY ORDERABLES Performing Organization Address City/State/ZIP Code Phon e Number [place] [phone] CERNER MILLENNIUM (ABNORMAL) Cardiac Enzymes (12/24/2014 12:30 AM EDT) P athologist Signature Troponin-T 0.11 (H) <=0.03 CERNER ng/mL [facility] Comment: 0.03 ng/mL: Represents the 99th percenti [...] consensus document of the Joint Society of Cardiology/[place] College o f Cardiology Committee for the redefinition of myocardial infarction. ? ?Journal of the [place] College of Cardiology 2000; 36: 959-969] CK, Total 252 (H) 0 - 200 unit/L [facility] UM Specimen Anatomical Collection Method Collection Time Receive d Time (Source) Location / / Volume Laterality Blood specimen 12/24/2014 12:30 5 1:45 (specimen) AM EDT AM EDT Resulting Agency Comment Spec In Lab Jeronimo Siu MD CHEMISTRY ORDERABLES Performing Organization Address City/State/ZIP Code Phon e Number [place] [phone] CERNER [employer]IUM XR chest routine PA & lateral (12/23/2014 [...] ORDERABLES D-Dimer, Quantitative (12/23/2014 6:39 PM EDT) athologist Signature D-Dimer, Quant 200 0 - 500 CERNER FEU ng/ml MILLENNIUM Comment: The D-Dimer assay is used to [...] Organization Address City/State/ZIP [place] [address] CERNER MILLENNIUM (ABNORMAL) Differential, Automated (12/23/2014 6:39 PM EDT) [facility] gist Method Time Signature Neutrophils % [...] Organization Address City/State/ZIP [place] [address] CERNER MILLENNIUM (ABNORMAL) Hemogram [...] 32.4 (H) 25.6 - CERNER 32.2 pg [facility] MCHC 35.3 32.0 - CERNER 36.5 gm/dL [facility] Platelets 171 145 - 370 CERNER x10(3)/mcL ENNIUM RDWSD 42.9 35.0 - CERNER 46.0 fL [facility] RDWCV 12.7 10.9 - CERNER 14.4 % [facility] MPV 11.2 9.0 - 12.0 CERNER fL [facility] Specimen Anatomical Collection Method Collection Time Receive d Time (Source) Location / / Volume Laterality Blood specimen 12/23/2014 6:39 PM 015 6:46 (specimen) EDT PM EDT Resulting Agency Comment Spec In Lab Jeronimo Siu MD HEMATOLOGY ORDERABLES Performing Organization Address City/[facility]/ZIP [facility] [place] [address] CERNER MILLENNIUM (ABNORMAL) APTT (12/23/2014 6:39 PM EDT) athologist Signature PTT 62 (H) 25 - 35 sec CERNER ENNIUM Comment: Recommended therapeutic PTT range for fu ll dose unfractionated heparin is 80-114 seconds. Specimen Anatomical Collection Method Collection Time Receive d Time (Source) Location / / Volume Laterality Blood specimen 12/23/2014 6:39 PM 015 6:46 (specimen) EDT PM EDT Resulting Agency Comment Spec In Lab Jeronimo Siu MD HEMATOLOGY ORDERABLES Performing Organization Address City/[facility] [place] [address] CERNER MILLENNIUM (ABNORMAL) Cardiac Enzymes (12/23/2014 6:39 PM EDT) P athologist Signature Troponin-T 0.15 (H) <=0.03 [facility]ER ng/mL [facility] Comment: 0.03 ng/mL: Represents the 99th percenti [...] consensus document of the Joint Society of Cardiology/[place] College o f Cardiology Committee for the redefinition of myocardial infarction. ? ?Journal of the [place] College of Cardiology 2000; 36: 959-969] CK, Total 320 (H) 0 - 200 unit/L CERNER MILLENNI UM Specimen Anatomical Collection Method Collection Time Receive d Time (Source) Location / / Volume Laterality Blood specimen 12/23/2014 6:39 PM 015 6:46 (specimen) EDT PM EDT Resulting Agency Comment Spec In Lab Jeronimo Siu MD CHEMISTRY ORDERABLES Performing Organization Address City/[facility]/ZIP [place] [address] CERNER MILLENNIUM Magnesium (12/23/2014 6:39 PM EDT) athologist Signature Magnesium 0.76 0.69 - 1.07 CERNER mmol/L MILLENNIUM Specimen Anatomical Collection Method Collection Time Receive d Time (Source) Location / / Volume Laterality Blood specimen 12/23/2014 6:39 PM 015 6:46 (specimen) EDT PM EDT Resulting Agency Comment Spec In Lab Jeronimo Siu MD CHEMISTRY ORDERABLES Performing Organization Address City/[facility] [place] [address] CERNER MILLENNIUM (ABNORMAL) pro-Brain Natriuretic Peptide (12/23/2014 6:39 PM EDT) P athologist Signature ProBNP 856 (H) <=125 pg/mL CERNER MILLENNIUM Specimen Anatomical Collection Method Collection Time Receive d Time (Source) Location / / Volume Laterality Blood specimen 12/23/2014 6:39 PM 015 6:46 (specimen) EDT PM EDT Resulting Agency Comment Spec In Lab Jeronimo Siu MD CHEMISTRY ORDERABLES Performing Organization Address City/State/ZIP [place] [address] CERNER MILLENNIUM (ABNORMAL) BMP [...] of Diabetes Mellitus, Position Statement from the [place] [employer]. ??Diabete s Care, Volume 33, Supplement 1, Jun 2009 BUN 13 10 - 20 mg/dL CERNER MILLENNIU M Creatinine 0.73 (L) 0.80 - 1.50 mg/dL CERNER MILL ENNIUM Comment: Please note that the pediatric reference intervals supplied above were not validated at [facility]. Results from pediatri c patients should be [...] Gap 16 (H) 5 - 15 mmol/L TORI Mejia Calcium 9.0 8.5 - 10.5 mg/dL TORI FONSECAUM Estimated GFR >60 >=60 TORI Mejia Comment: This estimated GFR (eGFR) value was [...] the following links into your internet browser. [email or web address] [email or web address] Specimen Anatomical Collection Method Collection Time Receive d Time (Source) Location / / Volume Laterality Blood specimen 12/23/2014 6:39 PM 015 6:46 (specimen) EDT PM EDT Resulting Agency Comment Spec In Lab Jeronimo Siu MD CHEMISTRY ORDERABLES Performing Organization Address City/State/ZIP [place] [address] TORI ALMONTE EKG 12 Lead (12/23/2014 5:24 PM EDT) Component Value Ref Test Analysis Performed At [facility] gist Range Method Time Signature Ventricular rate [...] [place] MD ECG ORDERABLES Performing Organization Address City/[facility]/ZIP Code Phon e Number MUSE SYSTEM documented in this encounter Visit Diagnoses Not on filedocumented in this encounter Administered Medications Inactive Administered Medications - up to 3 most recent administrations Medication Order MAR Action Action Date Dose Rate Site bivalirudin (ANGIOMAX) New Bag 12/24/2014 3:22 PM 1.75 mg/kg/hr 30 .5 mL/hr 250 mg in sodium chloride EDT 0.9% 50 mL infusion (COLD MEAT CHEF) CONTINUOUS PRN, Starting on Tue12/24/14 at 1522, Until Tue12/24/14 at 1601, Cath (Intra-Procedure), Routine bivalirudin (ANGIOMAX) bolus from bag Given 12/24/2014 3:18 PM EDT 65.3 mg ONCE PRN, Starting on Tue12/24/14 at 1518, Until Tue12/24/14 at 1601, Intra-Operative (Intra-Procedure), Routine clopidogrel (PLAVIX) tablet Given 12/24/2014 3:18 PM EDT 600 mg ONCE PRN, Starting on Tue12/24/14 at 1518, Until Tue12/24/14 at 1601, Intra-Operative (Intra-Procedure), Routine fentaNYL 50 mcg/mL multi-dose injection Given 12/24/2014 2:41 PM EDT 25 mcg ONCE PRN, Starting on Tue12/24/14 at 1441, Until Tue12/24/14 at 1601, Intra-Operative (Intra-Procedure), Routine iohexol (OMNIPAQUE) 350 mg/mL solution Given 12/24/2014 4:00 PM EDT 140 mLs ONCE PRN, Starting on Tue12/24/14 at 1600, Until Tue12/24/14 at 1601, Cath (Intra-Procedure), Routine midazolam (PF) (VERSED) 1 mg/mL multi-dose Given 12/24/2014 2:41 PM EDT 1 mg injection ONCE PRN, Starting on Tue12/24/14 at 1441, Until Tue12/24/14 at 1601, Cath (Intra-Procedure), Routine nitroGLYcerin 100 mcg/mL intracoronary Given 12/24/2014 3:49 PM EDT 200 mcg dilution ONCE PRN, Starting on Tue12/24/14 at 1449, Until Tue12/24/14 at 1601, Cath (Intra-Procedure), Routine Given 12/24/2014 3:04 PM EDT 100 mcg Given 12/24/2014 2:49 PM EDT 200 mcg documented in this encounter Active and Recently Administered Medications Times are shown in EDT. Scheduled Medication Order 12/23/2014 12/24/2014 12/25/2014 aspirin EC tablet 81 mg (CANCELED) 08 (Given - Provider: Zay Kaplan RN) 0849 (Given - Provider: Zay Kaplan RN) 81 mg, Oral, DAILY, First dose on Tue at 0900, Until Discontinued, Routine atorvastatin (LIPITOR) tablet 80 mg 174 (Given - Provider: Zay Kaplan RN) 80 mg, Oral, EVERY EVENING, First dose o n Tue12/24/14 at 1700, Until Discontinued, Routine cholecalciferol (Vitamin D3) tablet 1,000 Units (CANCELED) 08 (Given - Provider: Zay Kaplan RN) 0848 [...] Madalyn Becker RN - Reason: Medication not available)08 (Given - Provider: Zay Kaplan RN)2008 (Given - Provider: Kyle Lackey RN) 0848 (Given - Provider: Zay Kaplan RN) 20 mg, Oral, 2 TIMES DAILY, First dose o n Tue12/24/14 at 0100, Until Discontinued, Routine losartan (COZAAR) tablet 25 mg 1206 (Given - Pro vider: Zay Kaplan, FRANK) 0848 (Given - Provider: Zay Kaplan, FRANK) 25 mg, Oral, DAILY, First dose on Tue at 1100, Until Discontinued, Routine magnesium oxide (MAG-OX) tablet 600 mg (COMPLETED) 001 (Given - Provider: Madalyn Becker, FRANK) 600 mg, Oral, ONCE, 1 dose, Tue12/23/14 at 2230, STAT meTOPROLOL tartrate (LOPRESSOR) tablet 25 mg (CANCELED ) 1842 (Given - Provider: Zay Kaplan, FRANK) 0039 (Given - Provider: Madalyn saul RN)0642 (Given - Provider: Madalyn Becker, FRANK)1136 (Given - Provider: Zay Kaplan, FRANK)1748 (Given - Provider: Zay Kaplan, FRANK) 0058 (Given - Provider: Kyle Lackey RN)0615 (Given - Provider: Kyle Lackey RN)1207 (Given [...] dextrose 5% 100 mL infusion (CANCE LED) 1826 (Continued Bag - Provider: Zay Kaplan, FRANK)1832 (Paused - Provider: Zay Kaplan, FRANK) 5 [...] ANCELED) 1826 (New Bag - Provider: Zay Kaplan RN)2107 (Rate/Dose Change - Provider: Madalyn Becker RN) 010 (Rate/Dose Change - Provider: Madalyn Becker [...] NCELED) 1828 (New Bag - Provider: Zay Kaplan RN)2105 (Rate/Dose Change - Provider: Madalyn Becker RN) 010 (Rate/Dose Verify - Provider: Madalyn Becker RN)0620 (Stopped - Provider: Madalyn Becker RN) 10 mcg/min (3 mL/hr), Intravenous, at 3 mL/hr, CONTINUOUS, Starting Tue12/23/14 at 1830, Until Tue12/25/14 at [...] 1139 (New Bag - Provider: Zay Kaplan, FRANK) 125 mL/hr, at 125 mL/hr, Intravenous, CO [...] in sodium chloride 0.9% 50 mL infusion (COLD MEAT CHEF) (CANCELED) 1522 (New Bag - Provider: Edgard [...] (CANCELED) 0041 (Given - Provider: Madalyn Becker, FRANK)2136 (Given - Provider: Kyle Lackey RN) 50 mg, Oral, NIGHTLY PRN, Starting Tue at 0037, Until Tue12/25/14 at 1736, Itching, Sleep, Routine fentaNYL 50 mcg/mL multi-dose injection (CANCELED) 1441 (Given - Provider: Joy Brantley, FRANK) ONCE PRN, Starting Tue12/24/14 at 1441, Until [...] Routine documented in this encounter Care Teams Catalyst Operator Chief Relationship Specialty Start Date End Date None PCP - General 12/24/14 12/24/14 None documented as of this encounter
--- OUTSIDE RECORDS SUMMARY | 2022-02-12 01:07 | XMS_ITS | Encounter Summary ---
:1950 Author Organization [facility] Address [address] [place] [id number] Care Team Providers Name Role Phone Unavailable Primary Care Provider Unavailable Source Comments This document is intended for payment and operations only. Any dissemination,distribution, or copying of this information is strictly prohibited.[facility] Encounter Details Date Type Department Care Team Description 04/23/2021 - Hospital CONVERSION DEP Saul, Cardiac arrhy thmia, unspecified; 04/24/2021 Encounter (Mapping) Coy Centeno MD Palpitations; [id number] [facility] [address] [place] Paroxysmal atrial fibrillation (HCC); [address] Essential (primary) hypertension; [place], [place] Chronic obstr uctive pulmonary disease, unspecified (HCC); [id number] Pure hypercholesterolemia, unspecified; [phone] Atherosclerotic heart disease of [place] coronary artery without angina pectoris; (Work) Hyperlipidemia, unspecified; [phone] Chronic atrial fibrillation, unspecified (HCC); (Fax) Hyperglycemia, unspecified; 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 Discharge Diagnosis Visit Diagnoses 1. Atrial fibrillation with RVR I48.91 2. Chest pain at rest R07.9 3. Hypertension I10 4. Atrial fibrillation I48.91 Hospital Course 71-year-old male admitted with AFib rapid ventricular rate his did Cardizem has been increased off of the IV Cardizem patient seen and cleared by Cardiology started on amiodarone given prescriptions patient follow-up with PCP in 3-4 days follow-up with cardiology in 3-[address] aguayo for Dr[address] ruiz Objective Lab Results Results (Last 48 Hours) No qualifying data available. Radiology (Past 36 Hrs) COMPLETED RADIOLOGY IMAGING STUDIES: No Imaging Results in the last 36 hours Transition Plan Discharge Instruction(s): Discharge to: Home Patient Condition at Discharge: Improved Discharge CPOE Special Instructions: DChome in a.m. on 04/24/2021 if okay to cardiology Diet: Heart healthy cardiac(Low NA, Fat, Chol) Resume Activities: As tolerated Additional Discharge Instructions: Follow up within 1 week of discharge from hospital with Dr. Shipley. Follow Up Location: Follow up with primary care provider Address: , , , Phone: Follow up by: Follow up in: 3 days Details: Call office(s) above for follow-up appt., call your doctor or go to nearest emergency roomin situations of change in the health status and/ or any worsening of your symptoms. Location: [facility], MARILIN DOE, Active, Admitting, Discharging, Non-Staff, Ordering Address: [address] [place] [address], [id number] Follow up by: April 30, 2021 Follow up in: 1 week Details: Location: JUANCARLOS SUN MD, Active, Non-Staff, Ordering Address: [address] [place] [address], [id number] Follow up by: April 29, 2021 Follow up within: Details: Appointment secured for your hospital follow up. Please bring discharge paperwork with you day of appointment. [id number] Pending Test Results No Pending Results Allergies No Known Medication Allergies Discharge Meds Discharge Medication List Medication acetaminophen amiodarone(amiodarone 200 mg oral tablet)(amiodarone) 200 mg 1 TAB By Mouth 2 TIMES A DAY For 30 day(s) apixaban(Eliquis 5 mg oral tablet)(apixaban) 5 mg 1 TAB By Mouth 2 TIMES A DAY aspirin(Adult Aspirin 81 mg oral tablet, chewable)(aspirin) 81 mg 1 TAB Chewed DAILY atorvastatin By Mouth DAILY dilTIAZem(dilTIAZem 180 mg/24 hours oral capsule, extended release)(dilTIAZem) 180 mg 1 CAP By Mouth DAILY For 30 day(s) metoprolol(Metoprolol Succinate ER 100 mg oral tablet, extended release)(metoprolol) 100 mg 1 TAB By Mouth DAILY documented in this encounter H&P Notes Coy Hughes MD - 04/23/2021 3:25 PM EST Date of Admission 04/23/2021 Chief Complaint Palpataions, and a sensation of a fast heart rate. History of Present Illness 71-year-old male presented to emergency room with chief complaint of palpitations had started this morning early hours on 09/09 4:00 a.m. presented to the ER patient acute workup in the ER showed AFibwith RVR patient was given IV Cardizem which did improve his heart rate to 80s also patient has history of chronic atrial fibrillation and has been taking his medications no chest pain now but had somechest pain this morning with palpitations no loss of consciousness no diaphoresis no tingling numbness no fevers no chills blood in stools no black stool _ Review of Systems Constitutional: No fever, No chills, No sweats. Eye: Negative except as documented in history of present illness. Ear/Nose/Mouth/Throat: Negative except as documented in history of present illness. Respiratory: No shortness of breath, No cough, No wheezing. Cardiovascular: chest pain, palpitations, No tachycardia. Gastrointestinal: No nausea, No vomiting, No diarrhea, No constipation. Genitourinary: No dysuria. Musculoskeletal: Negative, No Significant back pain, No significant neck pain, No joint pain. Fair ROM No Edema Neurologic: Alert and oriented X3 No tingling No Numbness No Incontinence No Seizure activity Psychiatric: No anxiety, Not suicidal, No hallucinations. Objective Vitals & Measurements (Last Charted) T: 98.7 ??F HR: 52 RR: 22 BP: 119/67 SpO2: 95% WT: 83 kg BMI: 27.1 Physical Exam General: alert, no acute distress . Skin: warm, dry . Head: no trauma, normocephalic . Neck: trachea midline, no adenopathy, no tenderness. Eye: Normalconjunctiva, sclera clear . ENMT: TM's clear, oral mucosa moist, no pharyngeal erythema, absent exudate. Cardiovascular: Regular rate and rhythm, normal peripheral perfusion. Respiratory: lungs CTA , respirations non-labored . Chest wall: no deformity. Gastrointestinal: soft, non distended, no tenderness, no guarding. Extremities: no deformity, no trauma. Musculoskeletal: Normal ROM, spinal alignment Normal, no step offs absent. Neurological: oriented x4 , LOC appropriate for age , CN II-XII intact , motor strength equal &normal bilaterally , sensation equal & normal bilaterally , speech normal . Psychiatric: cooperative , affect appropriate for age, normal judgement, normal psychiatric thoughts. Spiritual Wholeness Screening Temple beliefs influences decisions: No Someone Loves and Cares: Yes Source of Caroline in Life: Yes Sense of Peace Today: Yes Assessment/Plan Visit Diagnoses 1. Atrial fibrillation with RVR I48.91 Heart rate is controlled now increase the Cardizem from 120-180 off of the IV Cardizem appreciate cardiology input so for cardiac workup is negative with negative troponins wait for the echocardiogramif cleared by cardiology patient can be discharged home in a.m. test with RN dictated by Dr. haley love for Dr. ruiz he has been informed and is already on Eliquis 2. Chest pain at rest R07.9 Serial EKGs cardiac enzymes troponin continue the metoprolol 3. Hypertension I10 The metoprolol and monitor 4. Atrial fibrillation I48.91 Continue the Eliquis increase Cardizem same as 1. Orders: acetaminophen, 650 mg, TAB, PO, Q4H (Every 4 hours), PRN Fever, 04/23/21 11:10:00 EST, (Tylenol) acetaminophen, 650 mg, TAB, PO, Q4H (Every 4 hours), PRN Pain, Mild, 04/23/21 11:10:00 EST, (Tylenol) acetaminophen-HYDROcodone, 1 TAB, TAB, PO, Q6H (Every 6 hours), PRN Pain, Moderate, 04/23/21 11:10:00 EST apixaban, 5 mg, TAB, PO, BID (2 times a day), Atrial Fibrillation/Flutter, 04/23/21 11:06:00 EST aspirin, 81 mg, CHEW TAB, Chewed, Daily, 04/23/21 11:09:00 EST atorvastatin, 40 mg, TAB, PO, Daily, 04/23/21 11:09:00 EST cloNIDine, 0.1 mg, TAB, PO, Q8H (Every 8 hours), PRN Hypertension, 04/23/21 11:10:00 EST, 30 day, Stop date 05/23/21 11:09:00 EST, 04/23/21 11:10:00 EST dilTIAZem, 180 mg, CAPCD, PO, Daily, 04/23/21 11:10:00 EST dilTIAZem, = 1 CAP, PO, Daily, # 30 CAP, 0 Refill(s), Indication: Heart Rhythm, [facility], [facility], 04/23/21 13:42:00 EST, Clinical Height, cm, 83, 04/23/21 13:42:00 EST, Clinical Weight,kg docusate, 100 mg, CAP, PO, Q12H (Every 12 hours), PRN as needed for constipation, 04/23/21 11:10:00EST, (Colace), 04/23/21 11:10:00 EST hydrALAZINE, 20 mg, INJ, IV Push, Q4H (Every 4 hours), PRN Hypertension, 04/23/21 11::00 EST, 30 day, Stop date 05/23/21 11:09:00 EST, FOR SYSTOLIC BLOOD PRESSURE OF MORE THAN 150 HYDROmorphone, 0.5 mg, INJ, IV, Q6H (Every 6 hours), PRN Pain, Moderate, 04/23/21 11:10:00 EST, 7 day, Stop date 04/30/21 11:09:00 EST metoprolol, 100 mg, TAB ER, PO, Daily, 04/23/21 11:10:00 EST nitroglycerin, 0.4 mg, TAB, Sublingual, Q5MIN (Every 5 minutes), PRN Chest Pain, 04/23/21 11:10:00 EST, 30 day, Stop date 05/23/21 11:09:00 EST ondansetron, 4 mg, INJ, IV Push, Q8H (Every 8 hours), PRN Nausea/Vomiting, 04/23/21 11:10:00 EST, 30 day, Stop date 05/23/21 11:09:00 EST, 04/23/21 11:10:00 EST Sodium Chloride, 10 mL, SYRINGE, IV Push, Daily, PRN Flush, 04/23/21 11:10:00 EST Sodium Chloride, 10 mL, SYRINGE, IV Push, Q12H (Every 12 hours), 04/23/21 11:10:00 EST, Flush Sodium Chloride 0.9% intravenous solution 250 mL, 250 mL, IV, 04/23/21 11:10:00 EST, KVO, as neededfor IVPB medication administration when maintenance fluid not available Activity Assessment Urinary Catheter Capacity Management Communication CBC and Plt w Diff Code Status Comp Metabolic Panel Consult Physician Diet- Discharge Diet Discharge Instructions Discharge Resume Activity Discontinue indwelling catheter Discontinue indwelling catheter ECG- Glucose Level-POC Glucose Level-POC Hypoglycemia Protocol Initiate Fall Precautions Intake and Output Magnesium Replacement Protocol Nurse Communication Nurse Communication OC IMM QMC OC TOB QMC OC VTE Prophylaxis QMC Oxygen Therapy Phosphorus - Phosphate Replacement Protocol Potassium Replacement Protocol Prothrombin Time with INR Provider Order [place] as [place]ana Mendo[facility] Telemetry monitoring continuous Troponin I QuaNT Urinary Catheter Removal Protocol Vital Signs Problems List Ongoing Atrial fibrillation Hypertension Historical Afib H/O cardiac catheterization History of COPD History of coronary artery disease History of high cholesterol History of hypertension Hyperlipemia Medications Inpatient acetaminophen, 650 mg= 2 TAB, PO, Q4H (Every 4 hours), PRN acetaminophen, 650 mg= 2 TAB, PO, Q4H (Every 4 hours), PRN aspirin, 81 mg= 1 TAB, Chewed, Daily atorvastatin, 40 mg= 1 TAB, PO, Daily Cardizem CD, 180 mg= 1 CAP, PO, Daily cloNIDine, 0.1 mg= 1 TAB, PO, Q8H (Every 8 hours), PRN Dilaudid, 0.5 mg= 0.5 mL, IV, Q6H (Every 6 hours), PRN docusate sodium, 100 mg= 1 CAP, PO, Q12H (Every 12 hours), PRN Eliquis, 5 mg= 1 TAB, PO, BID (2 times a day) hydrALAZINE, 20 mg= 1 mL, IV Push, Q4H (Every 4 hours), PRN Metoprolol Succinate ER, 100 mg= 2 TAB, PO, Daily nitroglycerin, 0.4 mg= 1 TAB, Sublingual, Q5MIN (Every 5 minutes), PRN [place] 7.5 mg-325 mg oral tablet, 1 TAB, PO, Q6H (Every 6 hours), PRN Saline Flush, 10 mL, IV Push, Q12H (Every 12 hours) Saline Flush, 10 mL, IV Push, Daily, PRN Sodium Chloride 0.9% intravenous solution 250 mL, 250 mL, IV Zofran, 4 mg= 2 mL, IV Push, Q8H (Every 8 hours), PRN Home acetaminophen Adult Aspirin 81 mg oral tablet, chewable, 81 mg= 1 TAB, Chewed, Daily atorvastatin, PO, Daily dilTIAZem 180 mg/24 hours oral capsule, extended release, 180 mg= 1 CAP, PO, Daily Eliquis 5 mg oral tablet, 5 mg= 1 TAB, PO, BID (2 times a day) Metoprolol Succinate ER 100 mg oral tablet, extended release, 100 mg= 1 TAB, PO, Daily Allergies No Known Medication Allergies Social History [place] were denies smoking no significant alcohol Social History: Recent Travel: No recent travel Signs of Abuse: No Domestic Concerns: None Tobacco Use Smoking Status: Never smoked Patient Stated Health History FAMILY HEALTH HISTORY Noncontributory PATIENT HEALTH HISTORY Radiology (Past 36 Hrs) COMPLETED RADIOLOGY IMAGING STUDIES: XR Chest 1V [Auth (Verified)] (04/23 914): FINAL IMPRESSION: No acute cardiopulmonary disease.Dictating Addie Andrews 04/23/2021 09:14Signing Dr. Hill,Location: [id number] Lab Results Test Name Test Result Date/Time WBC 8.8 x10'3/microL 04/23/2021 09:04 EST RBC 4.66 x10'6/microL 04/23/2021 09:04 EST Hgb 14.9 g/dL 04/23/2021 09:04 EST Hct 44.8 % 04/23/2021 09:04 EST Platelet 184 x10'3/microL 04/23/2021 09:04 EST MCV 96.1 fL 04/23/2021 09:04 EST MCH 32.0 pg 04/23/2021 09:04 EST MCHC 33.3 g/dL 04/23/2021 09:04 EST RDW 13.5 % 04/23/2021 09:04 EST MPV 10.7 fL 04/23/2021 09:04 EST Abs NRBCs 0.00 x10'3/microL 04/23/2021 09:04 EST Neutrophils 62 % 04/23/2021 09:04 EST Lymphs 21.8 % 04/23/2021 09:04 EST Monocytes % 10.8 % 04/23/2021 09:04 EST Eosinophil % 3.6 % 04/23/2021 09:04 EST Basophil % 0.9 % 04/23/2021 09:04 EST Neutro Absolute 5.47 x10'3/microL 04/23/2021 09:04 EST Lymph Absolute 1.92 x10^3/L 04/23/2021 09:04 EST Delta Absolute 0.95 x10'3/microL (High) 04/23/2021 09:04 EST Eos Absolute 0.32 x10'3/microL 04/23/2021 09:04 EST Basophil Absolute 0.08 x10'3/microL 04/23/2021 09:04 EST Immature Granulocytes Abs 0.07 x10'3/microL 04/23/2021 09:04 EST Immature Granulocytes % 1 % 04/23/2021 09:04 EST NRBC 0 /100WBC 04/23/2021 09:04 EST PT 15.7 second (High) 04/23/2021 09:04 EST INR 1.3 (High) 04/23/2021 09:04 EST PTT 36 second 04/23/2021 09:04 EST D-Dimer QuaNT 180 ng/mL 04/23/2021 09:04 EST Sodium 140 04/23/2021 09:04 EST Potassium 4.1 mmol/L 04/23/2021 09:04 EST Chloride 108 mmol/L 04/23/2021 09:04 EST CO2 27 mmol/L 04/23/2021 09:04 EST AGAP 5 mmol/L (Low) 04/23/2021 09:04 EST Glucose 136 mg/dL (High) 04/23/2021 09:04 EST BUN 13 mg/dL 04/23/2021 09:04 EST Creatinine 0.9 mg/dL 04/23/2021 09:04 EST BUN/Creatinine Ratio 14 ratio 04/23/2021 09:04 EST Calcium 9.5 mg/dL 04/23/2021 09:04 EST Est CrCl (CG) 71.3 mL/min 04/23/2021 09:04 EST GFR (CKD-EPI) 84 mL/min/1.73 m2 04/23/2021 09:04 EST Albumin Level 3.8 g/dL 04/23/2021 09:04 EST Total Protein 7.3 g/dL 04/23/2021 09:04 EST Globulin 3.5 04/23/2021 09:04 EST Troponin I QuaNT <0.015 ng/mL 04/23/2021 09:04 EST Cholesterol 148 mg/dL 04/23/2021 09:04 EST HDL 74 mg/dL (High) 04/23/2021 09:04 EST Non HDL Cholesterol 74 mg/dL 04/23/2021 09:04 EST LDL Calculated 52 mg/dL 04/23/2021 09:04 EST LDL/HDL Ratio 0.7 04/23/2021 09:04 EST Chol/HDL Ratio 2.0 04/23/2021 09:04 EST VLDL Calculated 22 mg/dL 04/23/2021 09:04 EST Triglycerides 109 mg/dL 04/23/2021 09:04 EST Alk Phos 56 Units/L 04/23/2021 09:04 EST AST 22 Units/L 04/23/2021 09:04 EST ALT(SGPT) 37 Units/L 04/23/2021 09:04 EST Bili Total 0.6 mg/dL 04/23/2021 09:04 EST TSH 2.19 microInter.Units/mL 04/23/2021 09:04 EST documented in this encounter Consult Notes Kecia Wilkinson - 04/23/2021 2:30 PM EST Service Date/Time April 23, 2021 Requesting Physician Hospitalist Consulting Physician Dr. Shipley Reason For Consultation Atrial fibrillation Subjective/History of Present Illness Patient is a 71-year-old male with coronary risk profile positive for hypertension, dyslipidemia, prior NSTEMI status post PCI, atrial fibrillation status post cardioversion on Eliquis, and advanced age. Patient presents to the emergency room with complaints of palpitations. Patient states he woke upthis morning around 3:00 a.m. this sudden onset of rapid rate. Around 7:00 a.m. he checked his bloodpressure and heart rate with home monitor where his SBP was in the high 80s and heart rate kept increasing over 110. 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 While in the emergency room patient was given bolus of diltiazem and started on IV drip of diltiazem. Rate is currently controlled in the 80s but still shows atrial fibrillation. Patient was transition from IV to p.o. form. Upon assessment, patient denies any chest pain, chest pressure, shortness of breath, nausea, or diaphoresis. He has noticed an increase in fatigue over the past couple of days along with occasional shortness of breath with exertion. Patient denies any recent illness, increase in stress but does note he is having some back issues and is being followed by [facility]. Patient denies any tobacco or recreational drug use and is an occasional alcohol user. No limitation in functional capacity. Cardiology was consulted for atrial fibrillation. Diagnostic workup thus far: EKG atrial fibrillation with rapid ventricular response Hyperglycemia No evidence of kidney insufficiency with BUN/creatinine 13:0.9 Troponin negative x1 Review of Systems Additional ROS info: Except as noted in the above Review of Systems and in the History of Present Illness all other systems have been reviewed and are negative or noncontributory. Objective Vitals & Measurements (Last Charted) T: 98.7 ??F HR: 52 RR: 22 BP: 119/67 SpO2: 95% WT: 83 kg BMI: 27.1 Physical Exam General: alert and oriented to person, place and time, no acute distress Head: atraumatic, normocephalic Neck: trachea midline. No bruit, no JVD Eye: normal conjunctiva, sclera clear Cardiovascular: regular rate and irregular rhythm, no murmur, rubs or gallops Respiratory: Lungs clear to auscultation bilaterally , respirations are non labored . Chest wall: no deformity. Gastrointestinal: soft, non distended , no guarding Extremities: no pedal edema or cyanosis, palpable and equal pedal pulses bilaterally Musculoskeletal: Normal ROM, no obvious joint deformity Neurological: oriented x4 , LOC appropriate for age, speech appropriate Psychiatric: cooperative , affect appropriate for age Skin: warm, dry, and intact Assessment/Plan Visit Diagnoses 1. Atrial fibrillation with RVR I48.91 Patient admitted for atrial fibrillation with RVR. Continue home dose NOAC of Eliquis 5 mg, p.o., b.i.d. for stroke prevention and continue on discharge for elevated Ludin Vasc score Will obtain 2D echo to assess LV function to evaluate for any valvular heart disease Monitor potassium and magnesium levels and replace per protocol, recommend keeping potassium greater than 4 and magnesium greater than 2 Check thyroid function test Increase home diltiazem dose from 120 mg, PO, daily to 180 mg, PO, Daily 2. Chest pain at rest R07.9 Patient complained of chest pain is currently being ruled out for acute coronary syndrome. Troponinare negative x1. No acute ischemic changes by EKG. 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 Thank you for consulting Cardiology. Plan discussed with the RN, and the patient. Problem List Ongoing Atrial fibrillation H/O cardiac catheterization History of COPD History of coronary artery disease History of high cholesterol History of hypertension Historical Afib Hyperlipemia Medications Inpatient acetaminophen, 650 mg= 2 TAB, PO, Q4H (Every 4 hours), PRN acetaminophen, 650 mg= 2 TAB, PO, Q4H (Every 4 hours), PRN aspirin, 81 mg= 1 TAB, Chewed, Daily atorvastatin, 40 mg= 1 TAB, PO, Daily Cardizem CD, 180 mg= 1 CAP, PO, Daily cloNIDine, 0.1 mg= 1 TAB, PO, Q8H (Every 8 hours), PRN Dilaudid, 0.5 mg= 0.5 mL, IV, Q6H (Every 6 hours), PRN docusate sodium, 100 mg= 1 CAP, PO, Q12H (Every 12 hours), PRN Eliquis, 5 mg= 1 TAB, PO, BID (2 times a day) hydrALAZINE, 20 mg= 1 mL, IV Push, Q4H (Every 4 hours), PRN Metoprolol Succinate ER, 100 mg= 2 TAB, PO, Daily nitroglycerin, 0.4 mg= 1 TAB, Sublingual, Q5MIN (Every 5 minutes), PRN Hopewell 7.5 mg-325 mg oral tablet, 1 TAB, PO, Q6H (Every 6 hours), PRN Saline Flush, 10 mL, IV Push, Q12H (Every 12 hours) Saline Flush, 10 mL, IV Push, Daily, PRN Sodium Chloride 0.9% intravenous solution 250 mL, 250 mL, IV Zofran, 4 mg= 2 mL, IV Push, Q8H (Every 8 hours), PRN Home acetaminophen Adult Aspirin 81 mg oral tablet, chewable, 81 mg= 1 TAB, Chewed, Daily atorvastatin, PO, Daily Cardizem Eliquis 5 mg oral tablet, 5 mg= 1 TAB, PO, BID (2 times a day) Metoprolol Succinate ER 100 mg oral tablet, extended release, 100 mg= 1 TAB, PO, Daily Allergies No Known Medication Allergies Social History Social History: Recent Travel: No recent travel Signs of Abuse: No Domestic Concerns: None Tobacco Use Smoking Status: Never smoked Patient Stated Health History FAMILY HEALTH HISTORY PATIENT HEALTH HISTORY Radiology (Past 36 Hrs) COMPLETED RADIOLOGY IMAGING STUDIES: XR Chest 1V [Auth (Verified)] (04/23 914): FINAL IMPRESSION: No acute cardiopulmonary disease.Dictating Addie Andrews 04/23/2021 09:14Signing Dr. Hill,Location: [place] [address] Lab Results Test Name Test Result Date/Time WBC 8.8 x10'3/microL 04/23/2021 09:04 EST RBC 4.66 x10'6/microL 04/23/2021 09:04 EST Hgb 14.9 g/dL 04/23/2021 09:04 EST Hct 44.8 % 04/23/2021 09:04 EST Platelet 184 x10'3/microL 04/23/2021 09:04 EST MCV 96.1 fL 04/23/2021 09:04 EST MCH 32.0 pg 04/23/2021 09:04 EST MCHC 33.3 g/dL 04/23/2021 09:04 EST RDW 13.5 % 04/23/2021 09:04 EST MPV 10.7 fL 04/23/2021 09:04 EST Abs NRBCs 0.00 x10'3/microL 04/23/2021 09:04 EST Neutrophils 62 % 04/23/2021 09:04 EST Lymphs 21.8 % 04/23/2021 09:04 EST Monocytes % 10.8 % 04/23/2021 09:04 EST Eosinophil % 3.6 % 04/23/2021 09:04 EST Basophil % 0.9 % 04/23/2021 09:04 EST Neutro Absolute 5.47 x10'3/microL 04/23/2021 09:04 EST Lymph Absolute 1.92 x10^3/L 04/23/2021 09:04 EST Delta Absolute 0.95 x10'3/microL (High) 04/23/2021 09:04 EST Eos Absolute 0.32 x10'3/microL 04/23/2021 09:04 EST Basophil Absolute 0.08 x10'3/microL 04/23/2021 09:04 EST Immature Granulocytes Abs 0.07 x10'3/microL 04/23/2021 09:04 EST Immature Granulocytes % 1 % 04/23/2021 09:04 EST NRBC 0 /100WBC 04/23/2021 09:04 EST PT 15.7 second (High) 04/23/2021 09:04 EST INR 1.3 (High) 04/23/2021 09:04 EST PTT 36 second 04/23/2021 09:04 EST D-Dimer QuaNT 180 ng/mL 04/23/2021 09:04 EST Sodium 140 04/23/2021 09:04 EST Potassium 4.1 mmol/L 04/23/2021 09:04 EST Chloride 108 mmol/L 04/23/2021 09:04 EST CO2 27 mmol/L 04/23/2021 09:04 EST AGAP 5 mmol/L (Low) 04/23/2021 09:04 EST Glucose 136 mg/dL (High) 04/23/2021 09:04 EST BUN 13 mg/dL 04/23/2021 09:04 EST Creatinine 0.9 mg/dL 04/23/2021 09:04 EST BUN/Creatinine Ratio 14 ratio 04/23/2021 09:04 EST Calcium 9.5 mg/dL 04/23/2021 09:04 EST Est CrCl (CG) 71.3 mL/min 04/23/2021 09:04 EST GFR (CKD-EPI) 84 mL/min/1.73 m2 04/23/2021 09:04 EST Albumin Level 3.8 g/dL 04/23/2021 09:04 EST Total Protein 7.3 g/dL 04/23/2021 09:04 EST Globulin 3.5 04/23/2021 09:04 EST Troponin I QuaNT <0.015 ng/mL 04/23/2021 09:04 EST Alk Phos 56 Units/L 04/23/2021 09:04 EST AST 22 Units/L 04/23/2021 09:04 EST ALT(SGPT) 37 Units/L 04/23/2021 09:04 EST Bili Total 0.6 mg/dL 04/23/2021 09:04 EST Addendum: Patient seen and chart review. Case discussed with nurse practitioner. It very pleasant white [place] male with history of paroxysmal atrial fibrillation he had been cardioverted twice. He has been very compliant with medication he did not do absolutely anything different. Has been taking diltiazem every day woke up this morning with a rate of rapid palpitation he is in AFib receive IV Cardizem. Then he remains in atrial fibrillation with good ventricular response he had had a previous cardiac evaluation is have some in absolutely negative. And he has been taking the Eliquis. At this moment time will add amiodarone to 200 mg now and every 12 hours to see we can converted into sinus rhythm. If we would accomplish that in the next 24 hours the patient may be discharged home and continue with the anticoagulation Cardizem and on amiodarone. [Electronically Signed By:] MARILIN NORMAN MD On, 04/23/2021 06:50 PM documented in this encounter Plan of Treatment Not on filedocumented as of this encounter Procedures Procedure Name Priority Date/Time Associated Comments Diagnosis RENAL FUNCTION INDEX - Routine 04/24/2021 2:31 AM Results for this DATA CONV EST procedure are i n the results section. EST CRCL (CG) - DATA Routine 04/24/2021 2:31 AM R esults for this CONV EST procedure are i n the results section. AUTO DIFFERENTIAL Routine 04/24/2021 2:31 AM Resu lts for this EST procedure are i n the results section. PROTIME-INR Routine 04/24/2021 2:31 AM Results f or this EST procedure are i n the results section. CBC W/AUTO DIFF, Routine 04/24/2021 2:31 AM Resul ts for this REFLEX MANUAL DIFF IF EST proced ure are in INDICATED the results section. COMPREHENSIVE Routine 04/24/2021 2:31 AM Results for this METABOLIC PANEL EST procedure ar e in the results section. TROPONIN I Routine 04/23/2021 11:13 Results for this PM EST procedure are i n the results section. TROPONIN I Routine 04/23/2021 5:36 PM Results f or this EST procedure are i n the results section. XR CHEST 1 VIEW Routine 04/23/2021 9:13 AM Result s for this EST procedure are i n the results section. RENAL FUNCTION INDEX - Routine 04/23/2021 9:04 AM Results for this DATA CONV EST procedure are i n the results section. EST CRCL (CG) - DATA Routine 04/23/2021 9:04 AM R esults for this CONV EST procedure are i n the results section. AUTO DIFFERENTIAL Routine 04/23/2021 9:04 AM Resu lts for this EST procedure are i n the results section. TROPONIN I Routine 04/23/2021 9:04 AM Results f or this EST procedure are i n the results section. APTT Routine 04/23/2021 9:04 AM Results f or this EST procedure are i n the results section. PROTIME-INR Routine 04/23/2021 9:04 AM Results f or this EST procedure are i n the results section. D-DIMER, QUANTITATIVE Routine 04/23/2021 9:04 AM Results for this EST procedure are i n the results section. CBC W/AUTO DIFF, Routine 04/23/2021 9:04 AM Resul ts for this REFLEX MANUAL DIFF IF EST proced ure are in INDICATED the results section. TSH Routine 04/23/2021 9:04 AM Results f or this EST procedure are i n the results section. LIPID PANEL Routine 04/23/2021 9:04 AM Results f or this EST procedure are i n the results section. COMPREHENSIVE Routine 04/23/2021 9:04 AM Results for this METABOLIC PANEL EST procedure ar e in the results section. documented in this encounter Results Renal Function Index (04/24/2021 2:31 AM EST) athologist Signature GFR (CKD-EPI) 89 mL/min/1.7 [facility] B 3 m2 [facility] Comment: GFR calculated based on CKD-EPI Creatini ne Equation (2009). Age(years) ??Average GFR 20-29 ? 116 mL/min/1.73 m^2 30-39 ? 107 mL/min/1.73 m^2 40-49 ? 99 ?? mL/min/1.73 m ^2 50-59 ? 93 ?? mL/min/1.73 m ^2 60-69 ? 85 ?? mL/min/1.73 m ^2 70+ ?75 ?? mL/min/1.7 3 m^2 Acceptable GFR ?=> 60 mL/min/1.73 m^2 Chronic Kidney Disease ?? <60 ?? mL/min/ 1.73 m^2 Kidney Failure ?<15 ?? mL/min/1.73 m^2 Specimen (Source) Anatomical Collection Method Collection Time Re ceived Time Location / / Volume Laterality Blood 04/24/2021 2:31 AM EST Coy Hughes MD LAB BLOOD ORDERABLES Performing Organization Address City/State/ZIP Code Phon e Number [facility] [address] [address] [place] [address] Est CrCl (CG) (04/24/2021 2:31 AM EST) P athologist Signature Est CrCL (CG) 82.0 mL/min [facility] Comment: Estimated Creatinine Clearance calculate d based on Cockcroft-Gault formula using: Height 175 Weight 83 Estimated Creatinine Clearance Cockcroft Gault is utilized by the Pharmacy to assist in determining medication dosage based on kidney function. Multiple factors determine normal ranges, please contact the Pharmacy with questions. Specimen (Source) Anatomical Collection Method Collection Time Re ceived Time Location / / Volume Laterality Blood 04/24/2021 2:31 AM EST Coy Hughes MD LAB BLOOD ORDERABLES Performing Organization Address City/State/ZIP Code Phon e Number [facility] [address] [address] (ABNORMAL) Comprehensive Metabolic Panel (CMP) (04/24/2021 2:31 AM EST) Patholo gist Method Time Signature Sodium 138 135 - 145 [facility] Potassium 3.7 3.5 - 5.1 [facility] mmol/L [facility] Chloride 109 100 - 111 [facility] mmol/L [facility] Carbon Dioxide 24 21 - 32 [facility] B mmol/L [facility] Glucose 114 (H) 70 - 99 [facility] mg/dL [facility] BUN 18 6 - 20 [facility] mg/dL [facility] Creatinine 0.8 0.7 - 1.3 [facility] mg/dL [facility] Calcium 9.1 8.5 - [facility] 10.1 [facility] mg/dL Protein, Total 6.5 6.4 - 8.2 [facility] B g/dL [facility] Albumin 3.5 3.0 - 5.0 [facility] g/dL [facility] Bilirubin, 0.6 0.1 - 1.5 [facility] Total mg/dL [facility] Alkaline 48 45 - 117 [facility] Phosphatase Units/L [facility] AST 18 15 - 42 [facility] Units/L [facility] ALT 34 12 - 78 [facility] Units/L [facility] BUN/Creatinine 22 6 - 25 [facility] Ratio ratio [facility] Globulin 3.0 [facility] Anion Gap 5 (L) 7 - 16 [facility] mmol/L [facility] Specimen (Source) Anatomical Collection Method Collection Time Re ceived Time Location / / Volume Laterality Blood 04/24/2021 2:31 AM EST Coy Hughes MD LAB BLOOD ORDERABLES Performing Organization Address City/[facility]/ZIP Code Phon e Number [facility] [address] [address] [place] [address] (ABNORMAL) Protime-INR (04/24/2021 2:31 AM EST) [facility] gist Method Time Signature Prothrombin 17.4 (H) 9.4 - 12.5 [facility] Time second LAB [facility] INR 1.5 (H) 0.8 - 1.1 [facility] Specimen (Source) Anatomical Collection Method Collection Time Re ceived Time Location / / Volume Laterality Blood 04/24/2021 2:31 AM EST Coy Hughes MD LAB BLOOD ORDERABLES Performing Organization Address City/[facility]/ZIP Code Phon e Number [facility] [address] [address] [place] [address] (ABNORMAL) Auto Differential (04/24/2021 2:31 AM EST) [email or web address] Method Time Signature Neutrophils % 62 42 - 74 % [facility] Lymphocytes % 22.0 16.0 - [facility] 45.0 % LAB [facility] Monocytes % 11.3 4.0 - [facility] 12.0 % LAB [facility] Eosinphils % 3.2 0.0 - 5.0 [facility] % LAB [facility] Basophils 0.6 0.0 - 3.0 [facility] % LAB [facility] Immature 1 0 - 1 % [facility] Granulocytes % LAB [facility] Neutrophils 6.75 1.56 - [facility] Absolute 6.92 LAB [facility] x10'3/mary [place] roL Lymphocytes 2.39 0.77 - [facility] Absolute 3.32 LAB [facility] x10^3/L [place] Monocytes 1.23 (H) 0.23 - [facility] Absolute 0.92 LAB [facility] x10'3/mary [place] roL Eosinophils 0.35 (H) 0.00 - [facility] Absolute 0.33 [facility] x10'3/mary [place] roL Basophil 0.07 0.00 - [facility] Absolute 0.08 LAB [facility] x10'3/mary [place] roL Immature 0.06 0.00 - [facility] Granulocyes 0.09 LAB [facility] Absolute x10'3/mary [place] roL Specimen (Source) Anatomical Collection Method Collection Time Re ceived Time Location / / Volume Laterality Blood 04/24/2021 2:31 AM EST Coy Hughes MD LAB BLOOD ORDERABLES Performing Organization Address City/State/ZIP Code Phon e Number [facility] [address] [address] [place] [address] (ABNORMAL) CBC Auto Diff, Reflex Manual Diff if Indicated (04/24/2021 2:31 AM EST) [facility] gist Method Time Signature Instrument WBC 10.8 (H) 3.8 - [facility] B 10.5 [facility] x10'3/mary roL WBC 10.8 (H) 3.8 - [facility] 10.5 [facility] x10'3/mary roL Red Blood 4.51 3.70 - [facility] Cells 5.40 [facility] x10'6/mary roL Hemoglobin 14.6 11.3 - [facility] 15.6 g/dL [facility] Hematocrit 42.8 32.0 - [facility] 47.0 % [facility] MCV 94.9 76.0 - [facility] 98.0 fL HEART [facility] MCH 32.4 27.0 - [facility] 34.0 pg [facility] MCHC 34.1 33.0 - [facility] 36.0 g/dL [facility] RDW 13.5 11.1 - [facility] 14.7 % [facility] Platelet Count 190 135 - 379 [facility] B x10'3/mary [facility] roL MPV 11.3 9.2 - [facility] 11.6 fL HEART [facility] Nucleated RBC 0 /100WBC [facility] Absolute 0.00 x10'3/mary [facility] Nucleated RBC roL [facility] Specimen (Source) Anatomical Collection Method Collection Time Re ceived Time Location / / Volume Laterality Blood 04/24/2021 2:31 AM EST Coy Hughes MD LAB BLOOD ORDERABLES Performing Organization Address [facility] e Number [facility] [address] [address] (ABNORMAL) Troponin I (04/23/2021 11:13 PM EST) Analysis Performed At Patho logist Time Signature Troponin-I 0.054 (H) 0.000 - [facility] 0.049 [facility]ART [facility] ng/mL Comment: Effective 04/30/2021, the Tropo codey I Level order (4th generation test) will be deactivated and replaced with a new T roponin I Level High Sensitivity order (5th generation test). Specimen (Source) Anatomical Collection Method Collection Time Re ceived Time Location / / Volume Laterality Blood 04/23/2021 11:13 PM EST Coy Hughes MD LAB BLOOD ORDERABLES Performing Organization Address [facility] e Number [facility] [address] [address] Troponin I (04/23/2021 5:36 PM EST) P athologist Signature Troponin-I 0.049 0.000 - [facility] 0.049 ng/mL [facility] Comment: Effective 04/30/2021, the Tropo codey I Level order (4th generation test) will be deactivated and replaced with a new T roponin I Level High Sensitivity order (5th generation test). Specimen (Source) Anatomical Collection Method Collection Time Re ceived Time Location / / Volume Laterality Blood 04/23/2021 5:36 PM EST Coy Hughes MD LAB BLOOD ORDERABLES Performing Organization Address [facility] e Number [facility] [address] [place] [address] XR Chest 1 View (04/23/2021 9:13 AM EST) Anatomical Region Laterality Modality Chest N/A Digital Radiography Specimen (Source) Anatomical Collection Method Collection Time Re ceived Time Location / / Volume Laterality 04/23/2021 8:53 AM EST Narrative 04/23/2021 9:14 AM EST EXAM: XR CHEST 1V HISTORY: CHEST PAIN WITH PALPITATIONS COMPARISON: There are no relevant prior studies available for comparison. TECHNIQUE: 1 view of the chest FINDINGS: The cardiomediastinal silhouet te is within normal limits. There are no pleural effusions or pneumothoraces identified. There are no focal areas of consolidation. IMPRESSION: No acute cardiopulmonary dis ease. Dictating Franklyn Andrews Dictated 04/23/2021 09:[address] Hill, Location: [id number] ? Final Signed by: ??FRANKLYN HILL MD EPH ? 04/23/21 09:14 Procedure Note Franklyn Hill MD - 07/05/2021F ormatting of this note might be different from the original. EXAM: XR CHEST 1V HISTORY: CHEST PAIN WITH PALPITATIONS COMPARISON: There are no relevant prior studies available for comparison. TECHNIQUE: 1 view of the chest FINDINGS: The cardiomediastinal silhouet te is within normal limits. There are no pleural effusions or pneumothoraces identified. There are no focal areas of consolidation. IMPRESSION: No acute cardiopulmonary dis ease. Dictating Franklyn Andrews Dictated 04/23/2021 09:[address] Hill, Location: [id number] Final Signed by: FRANKLYN HILL [facility] 04/23/21 09:14 Wojciech Melgoza MD IMG XR PROCEDURES TSH (04/23/2021 9:04 AM EST) P athologist Signature TSH 2.19 0.36 - 3.74 [facility] [employer] [facility] Units/mL Specimen (Source) Anatomical Collection Method Collection Time Re ceived Time Location / / Volume Laterality Blood 04/23/2021 9:04 AM EST Kecia Wilkinson APRN LAB BLOOD ORDERABLES Performing Organization Address City/State/ZIP Code Phon e Number [facility] [address] [address] [place] [address] (ABNORMAL) Lipid Panel (04/23/2021 9:04 AM EST) [facility] gist Method Time Signature Cholesterol, 148 50 - 200 [facility] Total mg/dL [facility] Triglycerides 109 30 - 150 [facility] mg/dL [facility] HDL Cholesterol 74 (H) 40 - 60 [facility] AB mg/dL [facility] LDL Cholesterol, 52 <=100 [facility] Calc mg/dL [facility] Chol/HDL Ratio 2.0 1.0 - 5.0 [facility] B [facility] Non-HDL 74 0 - 190 [facility] Cholesterol mg/dL [facility] LDL/HDL Ratio 0.7 [facility] VLDL Calculated 22 4 - 33 [facility] AB mg/dL [facility] Specimen (Source) Anatomical Collection Method Collection Time Re ceived Time Location / / Volume Laterality Blood 04/23/2021 9:04 AM EST Kecia Wilkinson APRN LAB BLOOD ORDERABLES Performing Organization Address City/State/ZIP Code Phon e Number [facility] [address] [address] Troponin I (04/23/2021 9:04 AM EST) athologist [facility] Troponin-I <0.015 0.000 - [facility] 0.049 [facility] ng/mL Comment: Effective 04/30/2021, the Tropo codey I Level order (4th generation test) will be deactivated and replaced with a new T roponin I Level High Sensitivity order (5th generation test). Specimen (Source) Anatomical Collection Method Collection Time Re ceived Time Location / / Volume Laterality Blood 04/23/2021 9:04 AM EST Wojciech Melgoza MD LAB BLOOD ORDERABLES Performing Organization Address City/State/ZIP Code Phon e Number [facility] [address] [place] [address] Renal Function Index (04/23/2021 9:04 AM EST) athologist Signature GFR (CKD-EPI) 84 mL/min/1.7 [facility] B 3 m2 [facility] Comment: GFR calculated based on CKD-EPI Creatini ne Equation (2009). Age(years) ??Average GFR 20-29 ? 116 mL/min/1.73 m^2 30-39 ? 107 mL/min/1.73 m^2 40-49 ? 99 ?? mL/min/1.73 m ^2 50-59 ? 93 ?? mL/min/1.73 m ^2 60-69 ? 85 ?? mL/min/1.73 m ^2 70+ ?75 ?? mL/min/1.7 3 m^2 Acceptable GFR ?=> 60 mL/min/1.73 m^2 Chronic Kidney Disease ?? <60 ?? mL/min/ 1.73 m^2 Kidney Failure ?<15 ?? mL/min/1.73 m^2 Specimen (Source) Anatomical Collection Method Collection Time Re ceived Time Location / / Volume Laterality Blood 04/23/2021 9:04 AM EST Wojciech Melgoza MD LAB BLOOD ORDERABLES Performing Organization Address City/State/ZIP Code [place] [facility] [place] [address] [address] Est CrCl (CG) (04/23/2021 9:04 AM EST) P athologist Signature Est CrCL (CG) 71.3 mL/min [facility] Comment: Estimated Creatinine Clearance calculate d based on Cockcroft-Gault formula using: Height 175 Weight 83 Estimated Creatinine Clearance Cockcroft Gault is utilized by the Pharmacy to assist in determining medication dosage based on kidney function. Multiple factors determine normal ranges, please contact the Pharmacy with questions. Specimen (Source) Anatomical Collection Method Collection Time Re ceived Time Location / / Volume Laterality Blood 04/23/2021 9:04 AM EST Wojciech Melgoza MD LAB BLOOD ORDERABLES Performing Organization Address City/State/ZIP Code Phon e Number [facility] [address] [address] [place] [address] (ABNORMAL) Comprehensive Metabolic Panel (CMP) (04/23/2021 9:04 AM EST) Patholo gist Method Time Signature Sodium 140 135 - 145 [facility] Potassium 4.1 3.5 - 5.1 [facility] mmol/L [facility] Chloride 108 100 - 111 [facility] mmol/L [facility] Carbon Dioxide 27 21 - 32 [facility] mmol/L [facility] Glucose 136 (H) 70 - 99 [facility] mg/dL [facility] BUN 13 6 - 20 [facility] mg/dL [facility] Creatinine 0.9 0.7 - 1.3 [facility] mg/dL [facility] Calcium 9.5 8.5 - [facility] 10.1 [facility] mg/dL Protein, Total 7.3 6.4 - 8.2 [facility] g/dL [facility] Albumin 3.8 3.0 - 5.0 [facility] g/dL [facility] Bilirubin, 0.6 0.1 - 1.5 [facility] Total mg/dL [facility] Alkaline 56 45 - 117 [facility] Phosphatase Units/L [facility] AST 22 15 - 42 [facility] Units/L [facility] ALT 37 12 - 78 [facility] Units/L [facility] BUN/Creatinine 14 6 - 25 [facility] B Ratio ratio [facility] Globulin 3.5 [facility] Anion Gap 5 (L) 7 - 16 [facility] mmol/L [facility] Specimen (Source) Anatomical Collection Method Collection Time Re ceived Time Location / / Volume Laterality Blood 04/23/2021 9:04 AM EST Wojciech Melgoza MD LAB BLOOD ORDERABLES Performing Organization Address City/State/ZIP Code Phon e Number [facility] [address] [address] [place] [address] APTT (04/23/2021 9:04 AM EST) P athologist Signature APTT 36 25 - 37 [facility] second [facility] Specimen (Source) Anatomical Collection Method Collection Time Re ceived Time Location / / Volume Laterality Blood 04/23/2021 9:04 AM EST Wojciech Melgoza MD LAB BLOOD ORDERABLES Performing Organization Address [facility] Phon e Number [facility] [address] [place] [address] D-dimer, quantitative (04/23/2021 9:04 AM EST) P athologist Signature D-Dimer 180 0 - 243 [facility] ng/mL [facility] Comment: D-dimer result in combo with cl inical assessment of low pretest probability has been shown to have a high negative p redictive value for DVT or PE. Specimen (Source) Anatomical Collection Method Collection Time Re ceived Time Location / / Volume Laterality Blood 04/23/2021 9:04 AM EST Wojciech Melgoza MD LAB BLOOD ORDERABLES Performing Organization Address [facility] Phon e Number [facility] [address] [address] (ABNORMAL) Protime-INR (04/23/2021 9:04 AM EST) [facility] gist Method Time Signature Prothrombin 15.7 (H) 9.4 - 12.5 [facility] Time second LAB [facility] INR 1.3 (H) 0.8 - 1.1 [facility] Specimen (Source) Anatomical Collection Method Collection Time Re ceived Time Location / / Volume Laterality Blood 04/23/2021 9:04 AM EST Wojciech Melgoza MD LAB BLOOD ORDERABLES Performing Organization Address City/[facility] Phon e Number [facility] [address] [address] [place] [address] (ABNORMAL) Auto Differential (04/23/2021 9:04 AM EST) [facility] gist Method Time Signature Neutrophils % 62 42 - 74 % [facility] Lymphocytes % 21.8 16.0 - [facility] 45.0 % LAB [facility] Monocytes % 10.8 4.0 - [facility] 12.0 % LAB [facility] Eosinphils % 3.6 0.0 - 5.0 [facility] % LAB [facility] Basophils 0.9 0.0 - 3.0 [facility] % LAB [facility] Immature 1 0 - 1 % [facility] Granulocytes % LAB [facility] Neutrophils 5.47 1.56 - [facility] Absolute 6.92 LAB [facility] x10'3/mary [place] roL Lymphocytes 1.92 0.77 - [facility] Absolute 3.32 LAB [facility] x10^3/L [place] Monocytes 0.95 (H) 0.23 - [facility] Absolute 0.92 LAB [facility] x10'3/mary [place] roL Eosinophils 0.32 0.00 - [facility] Absolute 0.33 LAB [facility] x10'3/mary [place] roL Basophil 0.08 0.00 - [facility] Absolute 0.08 LAB [facility] x10'3/mary [place] roL Immature 0.07 0.00 - [facility] Granulocyes 0.09 LAB [facility] Absolute x10'3/mary [place] roL Specimen (Source) Anatomical Collection Method Collection Time Re ceived Time Location / / Volume Laterality Blood 04/23/2021 9:04 AM EST Wojciech Melgoza MD LAB BLOOD ORDERABLES Performing Organization Address City/State/ZIP Code Phon e Number [facility] [place] [id number] [address] [place] [phone] CBC Auto Diff, Reflex Manual Diff if Indicated (04/23/2021 9:04 AM EST) Analysis Performed At Patho logist Time Signature Instrument WBC 8.8 3.8 - 10.5 [facility] L AB x10'3/micr [facility] [place] oL WBC 8.8 3.8 - 10.5 [facility] x10'3/micr [facility] [place] oL Red Blood Cells 4.66 3.70 - [facility] L AB 5.40 [facility] [place] x10'6/micr oL Hemoglobin 14.9 11.3 - [facility] 15.6 g/dL [facility] Hematocrit 44.8 32.0 - [facility] 47.0 % [facility] [place] MCV 96.1 76.0 - [facility] 98.0 fL HEART [facility] MCH 32.0 27.0 - [facility] 34.0 pg HEART [facility] MCHC 33.3 33.0 - [facility] 36.0 g/dL [facility] RDW 13.5 11.1 - [facility] 14.7 % [facility] [place] [facility] Platelet Count 184 135 - 379 [facility] B x10'3/micr [facility]ART [facility] oL MPV 10.7 9.2 - 11.6 [facility] fL HEART [facility] Nucleated RBC 0 /100WBC [facility]ART [facility] Absolute 0.00 x10'3/micr [facility] Nucleated RBC oL [facility] Specimen (Source) Anatomical Collection Method Collection Time Re ceived Time Location / / Volume Laterality Blood 04/23/2021 9:04 AM EST Wojciech Melgoza MD LAB BLOOD ORDERABLES Performing Organization Address City/State/ZIP Code Phon e Number [facility] [address] [address] [place] [phone] documented in this encounter Visit Diagnoses Diagnosis Cardiac arrhythmia, unspecified Palpitations Paroxysmal atrial fibrillation (HCC) Atrial fibrillation Essential (primary) hypertension Unspecified essential hypertension Chronic obstructive pulmonary disease, u nspecified (HCC) Pure hypercholesterolemia, unspecified Atherosclerotic heart disease of [place] coronary artery without angina pectoris Hyperlipidemia, unspecified Chronic atrial fibrillation, unspecified (HCC) Hyperglycemia, unspecified 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
--- OUTSIDE RECORDS SUMMARY | 2022-02-12 01:07 | XMS_ITS | Encounter Summary ---
:1950 [place] [address] Care Team Providers Name Role Phone Ken Westfall DO Primary Care Provider Encounter Details Date Type Department Care Team Description 12/22/2014 Orders Only Cardiology at [facility] [place] [facility] Leon Phoenix MD [facility] [place] [address] CARDIOLOGY DEPT. [phone] [place], [place] [address] (Wo rk) Social History Tobacco Use Types Packs/Day Years Used Date Never Assessed Sex Assigned at Date Recorded Not on file documented as of this encounter Plan of Treatment Not on filedocumented as of this encounter Procedures Procedure Name Priority Date/Time Associated Diagnosis Comme nts FILM LIBRARY Routine 12/22/2014 7:14 PM Results f or this STORAGE ONLY DX EDT procedure ar e in CHEST the results section. documented in this encounter Results Film Library- Storage only DX Chest (12/22/2014 7:14 PM EDT) Anatomical Region Laterality Modality Other Specimen (Source) Anatomical Collection Method Collection Time Re ceived Time Location / / Volume Laterality 12/22/2014 7:14 PM EDT Narrative 12/23/2014 7:14 PM EDT This is a Non-reportable exam Procedure Note BARRY, UNSIGNED REPORT - 12/23/2014Formatt ing of this note might be different from the original. This is a Non-reportable exam Leon Phoenix MD IMG FILM LIBRARY ORDERABLES documented in this encounter Visit Diagnoses Not on filedocumented in this encounter Care Teams Database Admin Relationship Specialty Start Date End Date Ken Westfall DO PCP - General 05/05/10 12/23/14 [address] [place] [address] documented as of this encounter
--- NOTE | 2022-02-12 10:13 | DI.RAD_ITS ---
Exam(s) XR KNEE RT 3V AP,LAT,KEMAR EXAM: XR KNEE RT 3V AP,LAT,KEMAR CLINICAL HISTORY: r knee pain, M25.561 TECHNIQUE: COMPARISON: No exams were available for comparison FINDINGS: Three views were obtained. There is mild narrowing of medial tibiofemoral cartilaginous joint space, presumably on a degenerative basis.. There are mild marginal osteophytes of all 3 joints of the kne e. No gross joint effusion seen on the lateral view. No other bony abnormality seen. IMPRESSION: Slight DJD as described above. RADIATION DOSE DELIVERED: Total DLP
== END ==
PROVIDERS: PCP Family Medicine; Visit Provider Family Medicine
DX: M25.561 Pain in right knee (principal); M17.11 Unilateral primary osteoarthritis, right knee
CPT/HCPCS: 73562

== ENCOUNTER 2022-12-17 08:34 | Outpatient (CLI) | payer MEDICARE, BC, SELFPAY ==
--- NOTE | 2022-12-17 08:30 | RT.EKG_ITS ---
APPROVED REPORT Exam: Resting ECG Reason for Exam: hx of PAF Patient Location: O HR:65 bpm ECG Measurements Heart Rate 65 AXIS DE 149 P 64 QRSd 81 QRS -5 QT 408 T 51 QTc 425 Conclusion Sinus rhythm...normal P axis, V-rate 50- 99 Normal Electrocardiogram
== END 2022-12-17 08:35 | disposition home or self-care (01) ==
LOC: DI.CARD 08:35
PROVIDERS: PCP Family Medicine; Visit Provider Internal Medicine Cardiovascular Disease
DX: I48.0 Paroxysmal atrial fibrillation (principal)
CPT/HCPCS: 93010

== ENCOUNTER → 2022-12-17 10:32 | Outpatient (BNVA) | payer MEDICARE, BC, SELFPAY | PROVIDERS: PCP Family Medicine; Visit Provider Internal Medicine Cardiovascular Disease | DX: Z79.01 Long term (current) use of anticoagulants (principal); I10 Essential (primary) hypertension; I48.0 Paroxysmal atrial fibrillation; I25.10 Atherosclerotic heart disease of native coronary artery without angina pectoris | CPT/HCPCS: 93005; 99213 ==

== ENCOUNTER 2022-12-27 04:17 | Outpatient (CLI) | payer MEDICARE, BC, SELFPAY ==
[2022-12-27 15:15] LABS: HCT 43.2 % (40.0-50.0); HGB 14.9 g/dL (13.5-17.5); MCH 31.9 pg (27.0-33.0); MCHC 34.5 % (32.0-36.0); MCV 93 fL (80-95); MPV 10.8 fL (8.0-11.0); Platelet Count 191 10^3/uL (130-400); RBC 4.67 10^6/uL (4.36-5.78); RDW 12.8 % (11.8-14.1); RDW-SD 43.6 fL; WBC 8.31 10^3/uL (4.4-10.8)
[2022-12-27 15:58] LABS: ALT 42 U/L (16-63); AST 27 U/L (15-37); Albumin 4.2 g/dL (3.4-5.0); Alkaline Phosphatase 69 U/L (46-116); Anion Gap 9.4 mmol/L (3-11); BUN 15 mg/dL (7-18); Bilirubin, Total 0.9 mg/dL (0.2-1.0); CO2 25.6 mmol/L (21.0-32.0); CREATININE 0.9 mg/dL (0.70-1.30); Calcium 9.2 mg/dL (8.5-10.1); Chloride 108 mmol/L (98-107); Estimated GFR 89.62 (mL/min/1.73m2); Glucose 91 mg/dL (74-106); Sodium 143 mmol/L (136-145); Total Protein 7.2 g/dL (6.4-8.2)
== END 2022-12-27 04:18 | disposition home or self-care (01) ==
LOC: LBO 04:17
PROVIDERS: PCP Family Medicine; Visit Provider Family Medicine
DX: E78.2 Mixed hyperlipidemia (principal); I10 Essential (primary) hypertension; I48.0 Paroxysmal atrial fibrillation
CPT/HCPCS: 36415; 80053; 85027

== ENCOUNTER 2023-02-21 02:05 | Outpatient (CLI) | payer MEDICARE, BC, SELFPAY ==
[2023-02-21 15:42] LABS: HCT 43.2 % (40.0-50.0); HGB 14.9 g/dL (13.5-17.5); MCH 32.3 pg (27.0-33.0); MCHC 34.5 % (32.0-36.0); MCV 94 fL (80-95); MPV 10.7 fL (8.0-11.0); Platelet Count 172 10^3/uL (130-400); RBC 4.62 10^6/uL (4.36-5.78); RDW 12.7 % (11.8-14.1); RDW-SD 43.5 fL; WBC 8.54 10^3/uL (4.4-10.8)
[2023-02-22 20:15] LABS: PSA, Diagnostic 0.7 ng/mL (<=6.5)
== END 2023-02-21 02:06 | disposition home or self-care (01) ==
LOC: LBO 02:05
PROVIDERS: PCP Family Medicine; Visit Provider Family Medicine
DX: M54.42 Lumbago with sciatica, left side (principal); N40.0 Benign prostatic hyperplasia without lower urinary tract symptoms; I48.0 Paroxysmal atrial fibrillation; Z79.01 Long term (current) use of anticoagulants; I10 Essential (primary) hypertension; E78.5 Hyperlipidemia, unspecified
CPT/HCPCS: 36415; 85027; 84153

== ENCOUNTER → 2023-02-25 00:47 | Outpatient (CLI) | payer MEDICARE, BC, SELFPAY ==
--- NOTE | 2023-02-25 08:00 | DI.US_ITS ---
Exam(s) US CAROTID EXAM: US CAROTID CLINICAL HISTORY: hears heartbeat in ears - new,CAROTID ARTERY BRUIT,R09.89. TECHNIQUE: Ultrasound carotids performed using grayscale, color-flow, and spectral Doppler imaging. COMPARISON: No exams were available for comparison FINDINGS: RIGHT CAROTID ARTERY: Plaque: Mild foci of calcific plaque in the common carotid bulb and proximal internal carotid artery Velocity elevation: None. LEFT CAROTID ARTERY: Plaque: Mild foci of calcific plaque in the common carotid bulb and proximal internal carotid artery Velocity elevation: None. VERTEBRAL ARTERIES: Antegrade flow. Measurements: R Bulb: 94.7cm/s PS / 10.8cm/s ED R CCA: 100.2cm/s PS / 16.2cm/s ED R ECA: 123.9cm/s PS / 10.7cm/s ED R ICA Prox: 104.3cm/s PS / 17.2cm/s ED R ICA Mid: 104.3cm/s PS / 23.7cm/s ED R ICA Distal: 76cm/s PS /19.4cm/s ED R Vert: 86.9cm/s PS / 6.3cm/s ED R SVR: 1 R DVR: 1.1 L Bulb: 115.2cm/s PS / 12.9cm/s ED L CCA: 118.8cm/s PS / 21.5cm/s ED L ECA: 104.3cm/s PS / 8.5cm/s ED L ICA Prox: 121.8cm/s PS / 19.4cm/s ED L ICA Mid: 117.4cm/s PS / 28.1cm/s ED L ICA Distal: 96.6cm/s PS / 23.5cm/s ED L Vert: 81.5cm/s PS / 8.9cm/s ED L SVR: 1 L DVR: 0.9 IMPRESSION: Mild foci of fat calcific plaque in the common carotid bulb and proximal internal carotid arteries. No evidence for hemodynamically significant carotid stenosis. Criteria for Carotid Stenosis: Normal: ICA PSV <125 cm/s no plaque or intimal thickening is visible. <50% stenosis: ICA PSV <125 cm/s and plaque or intimal thickening is visible. 50-69% stenosis: ICA PSV is 125-250 cm/s and plaque is visible. >70% stenosis to near occlusion: ICA PSV >250 cm/s with visible plaque and luminal narrowing. DATA REPOSITORY:
== END ==
PROVIDERS: PCP Family Medicine; Visit Provider Family Medicine
DX: R09.89 Other specified symptoms and signs involving the circulatory and respiratory systems (principal)
CPT/HCPCS: 93880

== ENCOUNTER → 2023-03-09 00:51 | Outpatient (CLI) | payer MEDICARE, BC, SELFPAY ==
--- NOTE | 2023-03-09 08:00 | DI.RAD_ITS ---
Exam(s) XR KNEE LT 3V AP,LAT,KEMAR EXAM: XR KNEE LT 3V AP,LAT,KEMAR CLINICAL HISTORY: l knee pain,m25.562. TECHNIQUE: 2D digital imaging was performed of the left knee. Three images were obtained. AP, late ral and PA tunnel views were obtained. COMPARISON: No priors for comparison. FINDINGS: BONES: No acute fracture is present. No bony destructive lesion is seen. JOINTS: The knee is normally aligned. No joint effusion is seen. There are degenerative changes seen in the medial femoral tibial and patellofemoral joint. There density seen posteriorly on the lateral view of the knee suspicious for loose bodies. SOFT TISSUE: Normal. IMPRESSION: Degenerative changes of the left knee. DATA REPOSITORY: RADIATION DOSE DELIVERED:
== END ==
PROVIDERS: PCP Family Medicine; Visit Provider Family Medicine
DX: M17.12 Unilateral primary osteoarthritis, left knee (principal)
CPT/HCPCS: 73562

== ENCOUNTER 2023-12-19 08:06 | Outpatient (CLI) | payer MEDICARE, BC, SELFPAY ==
--- NOTE | 2023-12-19 08:00 | RT.EKG_ITS ---
APPROVED REPORT Exam: Resting ECG Reason for Exam: PAF Patient Location: O HR:67 bpm ECG Measurements Heart Rate [address] 145 P 60 QRSd 74 QRS -15 QT 400 T 52 QTc 423 Conclusion Sinus rhythm...normal P axis, V-rate 50- Possible inferior infarct, old...Q >35mS, II III aVF
== END 2023-12-19 08:07 | disposition home or self-care (01) ==
LOC: DI.CARD 08:07
PROVIDERS: PCP Family Medicine; Visit Provider Internal Medicine Cardiovascular Disease
DX: I48.0 Paroxysmal atrial fibrillation (principal); I25.10 Atherosclerotic heart disease of native coronary artery without angina pectoris
CPT/HCPCS: 93010

== ENCOUNTER → 2023-12-19 13:12 | Outpatient (BNVA) | payer MEDICARE, BC, SELFPAY | PROVIDERS: PCP Family Medicine; Visit Provider Internal Medicine Cardiovascular Disease | DX: I25.2 Old myocardial infarction (principal); I48.0 Paroxysmal atrial fibrillation; I25.10 Atherosclerotic heart disease of native coronary artery without angina pectoris | CPT/HCPCS: 93005; 99213 ==

== ENCOUNTER 2024-02-03 13:46 | Emergency (ER) | payer MEDICARE, BC, SELFPAY ==
[2024-02-03] VITALS (15 sets, daily range): BP systolic 106–148; BP diastolic 39–82; PULSE 60–74; RESP 11–22; TEMP 35.7; O2SAT 95–100
--- NOTE | 2024-02-03 13:45 | RT.EKG_ITS ---
APPROVED REPORT Exam: Resting ECG Reason for Exam: Dizzy Patient Location: E HR:60 bpm ECG Measurements Heart Rate 60 AXIS NC 155 P 79 QRSd 79 QRS -14 QT 456 T 55 QTc 457 Conclusion Sinus rhythm Rate 60 No STEMI
--- NOTE | 2024-02-03 14:11 | ED.GENADUL_ITS ---
Discharge Plan Disposition Patient Disposition: Home Condition: Stable Discharge Details Clinical Impression: [place] (acute kidney injury), Paroxysmal atrial fibrillation, Hyperlipidemia, Hypertension, Coronary atherosclerosis of [place] coronary artery, Acute dehydration Primary Care Provider: Amisha Thakkar ED Provider: Sunshine Schroeder Home Meds and New Rx's Prescriptions: No Action Probiotic 3 billion cell capsule 3,000 mmu cells PO DAILY Rx Instructions: administer with a meal melatonin 10 mg tablet 10 mg PO HS diphenhydramine-acetaminophen [Tylenol PM Extra Strength] 25-500 mg tablet 1 tab PO QHS glucosamine-chondroitin 900 mg tablet 1,500 mg PO BID levalbuterol tartrate [Xopenex HFA] 45 mcg/actuation HFA aerosol inhaler 45 - 90 mcg Inhalation Q4H PRN Qty: 45 5RF atorvastatin [Lipitor] 80 mg tablet 80 mg PO HS Qty: 90 3RF losartan 50 mg tablet 50 mg PO DAILY Qty: 90 4RF budesonide-formoterol [Symbicort] 80-4.5 mcg/actuation HFA aerosol inhaler 2 puff IH BID Qty: 30.6 7RF amiodarone 100 mg tablet 100 mg PO DAILY Qty: 90 4RF Eliquis 5 mg tablet 5 mg PO BID Qty: 180 0RF Discharge Instructions Instructions: Dehydration, Adult (DC), Dizziness, Nonvertigo, (DC) Additional Instructions: You were seen in the emergency department today for evaluation of an episode of dizziness. In our department you had a full physical examination performed, had laboratory studies that showed an increase in your kidney levels, potentially due to dehydration, which could explain your symptoms. I recommend good hydration and nutrition and following up with your primary care provider in the next few days to discuss this visit and any symptoms that change, worsen, or persist. You can always return to the emergency department if you develop worsening dizziness, chest pain, shortness of breath, or any other symptoms that cause you concern. Thank you for allowing us to be part of your care. HPI General Mode of arrival: EMS . Date/Time Provider Initiated Documentation: 02/03/24 13:53 . Limitations to Documentation: no limitations . Information obtained by: patient, family and old records reviewed . HPI Narrative: MDM: In brief, this is a 73-year-old male patient presenting for evaluation of dizziness. My differential includes but is not limited to orthostasis, vasovagal syndrome, dehydration, electrolyte derangement, anemia. The patient is without chest pain to significantly increase my concern for ACS, though I did consider this and arrhythmia, cardiomyopathy. No shortness of breath or focal lung findings to significantly increase my concern for intrapulmonary abnormalities such as pulmonary embolism (patient is also reassuringly anticoagulated), pulmonary edema, pneumothorax, reactive airway disease exacerbation, pneumonia. No murmur to suggest aortic stenosis. No focal neurodeficits to suggest CVA, no seizure activity noted, no trauma to suggest intracranial hemorrhage. We will obtain an EKG and laboratory studies to include CBC, CMP, magnesium, and troponin. I will also provide the patient with a liter of IV fluids for initial management of potential dehydration. ED Course: I reviewed the patient's laboratory studies, which showed very mild anemia at 13.4 but no leukocytosis or thrombocytopenia. Chemistry panel without significant electrolyte abnormalities, creatinine is elevated from the patient's baseline at 1.5, no evidence of liver dysfunction and the troponin was negative. EKG reviewed by myself and was nonischemic. After the patient's fluids were completed, we did discuss his potential dehydration and kidney injury. The patient reports that his symptoms have resolved entirely, he was able to ambulate without difficulty, and he is desiring of discharge home. I am most suspicious that the patient experienced orthostasis/vasovagal syndrome, complicated by poor hydration status. At this time, the patient has had a full medical evaluation and is safe for discharge to home. They are hemodynamically stable, ambulatory, and tolerating PO. They are understanding of the follow-up plan and return precautions. They left our facility without incident. Sunshine Schroeder MD HPI: This is a 73-year-old male patient with a past medical history significant for paroxysmal atrial fibrillation on Eliquis, BPH, hypertension and hyperlipidemia as well as CAD status post stent placement, presenting for evaluation of an episode of dizziness. The history is obtained with the assistance of the patient's who is at bedside, they states that they had [place] and had sat down to eat when the patient began to have an episode of dizziness. He describes it as lightheadedness, similar to when they gave me the medication to slow down my heart. He reports that this was not associated with a loss of consciousness he did feel like he might. He reports that he slumped forward and held his head on his arms, had some nausea and felt some brightening of his vision. He states that he was able to stand up and felt a little better, though did have a second episode with very similar symptoms shortly after. The patient reports he never experienced headache, chest pain, difficulty breathing, and did not sustain any trauma. He reports that he did notice some pain when he sat back up in his neck and shoulder blades, and he wonders if he pulled a muscle when he put his head down. Yesterday the patient reports that he did not drink as much water as is typical for him due to it being a cloudy day. He has otherwise been in his normal state of health, has been taking all of his medications as prescribed. He states that his dizziness has improved but not entirely resolved, but otherwise is without a cute complaint at this time. Exam: Gen: Awake and alert, in no apparent distress HEENT: Non-icteric sclera, pupils equal and reactive at 2 mm bilaterally, EOMs are full and without nystagmus Neck: Supple, no midline tenderness Lungs: No apparent respiratory distress, normal respiratory effort. Lung sounds clear and equal CV: Appears well perfused, heart with regular rate and rhythm, strong and symmetrical distal pulses Abdomen: Non-distended, soft MSK: Moves 4 extremities without apparent limitation in ROM, no pedal edema Skin: Visualized skin without rashes, cyanosis. Neuro: Cranial nerves II through XII intact and symmetrical bilaterally, 5 out of 5 strength x 4 extremities with no sensory deficits. Psych: Appropriate for situation. Related Data Home Medications ?Medication ?Instructions ?Recorded ?Confirmed levalbuterol tartrate 45 45 - 90 mcg inhalation Q4H PRN #45 11/04/20 02/03/24 mcg/actuation aerosol inhaler grams (Xopenex HFA) antiarthritic combination no.2 900 1,500 mg PO BID 02/10/23 02/03/24 mg tablet (glucosamine-chondroitin) diphenhydramine 25 1 tab PO QHS 02/10/23 02/03/24 mg-acetaminophen 500 mg tablet (Tylenol PM Extra Strength) melatonin 10 mg tablet 10 mg PO HS 02/10/23 02/03/24 lactobacillus combination no.4 3 3,000 mmu cells PO DAILY 11/08/23 02/03/24 billion cell capsule (Probiotic) atorvastatin 80 mg tablet (Lipitor) 80 mg PO HS #90 tabs 11/14/23 02/03/24 budesonide-formoterol HFA 80 2 puff inhalation BID #30.6 grams 11/14/23 02/03/24 mcg-4.5 mcg/actuation aerosol inhaler (Symbicort) losartan 50 mg tablet 50 mg PO DAILY #90 tabs 11/14/23 02/03/24 amiodarone 100 mg tablet 100 mg PO DAILY #90 tabs 12/26/23 02/03/24 apixaban 5 mg tablet (Eliquis) 5 mg PO BID #180 tabs 12/26/23 02/03/24 Previous Rx's ?Medication ?Instructions ?Recorded levalbuterol tartrate 45 45 - 90 mcg inhalation Q4H PRN #45 11/04/20 mcg/actuation aerosol inhaler grams (Xopenex HFA) atorvastatin 80 mg tablet (Lipitor) 80 mg PO HS #90 tabs 11/14/23 budesonide-formoterol HFA 80 2 puff inhalation BID #30.6 grams 11/14/23 mcg-4.5 mcg/actuation aerosol inhaler (Symbicort) losartan 50 mg tablet 50 mg PO DAILY #90 tabs 11/14/23 amiodarone 100 mg tablet 100 mg PO DAILY #90 tabs 12/26/23 apixaban 5 mg tablet (Eliquis) 5 mg PO BID #180 tabs 12/26/23 Allergies Allergy/AdvReac Type Severity Reaction Status Date / Time lisinopril AdvReac Mild COUGH Verified 02/10/23 10:17 General Stated Complaint: Dizzy/Sync TIFFANIE: 3 Course Vital Signs Vital signs: Vital Signs Temperature 35.7 C L 02/03/24 13:49 Pulse 60 02/03/24 13:49 Respiratory Rate 18 02/03/24 13:49 Blood Pressure 106/41 L 02/03/24 13:49 Pulse Oximetry 95 02/03/24 13:49 Temperature 35.7 C L 02/03/24 13:49 Pulse 60 02/03/24 13:49 Respiratory Rate 18 02/03/24 13:49 Respiratory Effort Normal, Non-Labored 02/03/24 14:08 Blood Pressure 106/41 L 02/03/24 13:49 Pulse Oximetry 95 02/03/24 13:49 Medical Decision Making Quality:SDOH Health Related Social Needs: No Data to Display PFSH All Active Problems (Updated 02/03/24 @ 15:42 by Sunshine Schroeder MD) Acute dehydration (Acute) [place] (acute kidney injury) (Acute) Left knee pain (Acute) Carotid artery bruit (Acute) BPH (benign prostatic hyperplasia) (Chronic) Right knee pain (Acute) Asthma (Chronic) Sacroiliac dysfunction (Chronic 10/31/17) Paroxysmal atrial fibrillation (Chronic 12/22/14) Bilateral low back pain with sciatica (Chronic 05/12/00) disc protrusion; 10/15-MRI L3-4 R and cantral disc herniation. Surgery 04/2001 and 2004 sciatica on the left side Hyperlipidemia (Chronic) Hypertension (Chronic) Hallux valgus (Chronic) Insomnia (Chronic) Coronary atherosclerosis of [place] coronary artery (Chronic) Hyperglycemia (Acute) Medical History Normal colonoscopy Encounter for screening colonoscopy Palpitations Impaired renal function disorder 05/12/04 MRI showed renal mass; U/S=cyst A-fib 12/22/14 Atrial fibrillation, unspecified type Surgical History History of back surgery 2000; low back surgery History of intravascular stent placement 12/11/14 Stent placement 12/2014 LOW BACK DISC SURGERY [place] [facility] [place] Family History Mother , 93 Essential hypertension Heart disease COPD (chronic obstructive pulmonary disease) Father , 84 Essential hypertension Heart disease CABG Stroke Sister Breast cancer Asthma Son No problems noted. Daughter No problems noted. Maternal Grandfather , 80 Asthma Maternal Grandmother , 81 No problems noted. Social History Smoking/Tobacco Use Status: Never Second Hand Exposure: Yes Smoking risk assessment performed?: Yes Alcohol Intake: current Alcohol Intake frequency: a few times a month Alcohol type: beer, wine and hard liquor Drug use: Never Substance use type: does not use Household members: spouse Housing: house Do you need help understanding health information?: Rarely Pets and animals: No Sexually active: Yes Do you think of yourself as: straight/heterosexual Current gender identity: male What is your relationship status?: How often do you talk on the phone with friends or family?: once per week How often do you get together with friends or relatives?: three or more times per week How often do you attend mandaeism or anabaptist services?: 1-3 times per year Do you belong to any clubs or organized social groups?: yes Panel score (0-1 are the most socially isolated patients): 3 What type of physical activity do you participate in: walking Duration: 45-60 minutes/day Frequency: 1-2 times per week [place]/Church: Religious Seatbelt use: always Drive intox or ride w/intox short haul driver: No Do you feel safe at home: Yes Do you feel safe in your relationship?: Yes
[2024-02-03] MEDS: Lactated Ringers 1,000 ML 1000 ML IV (14:27)
[2024-02-03 14:31] LABS: Abs Immature Grans 0.02 10^3/uL (0.0-0.06); Absolute Basophil Count 0.07 10^3/uL (0.0-0.2); Absolute Eosinophil Count 0.14 10^3/uL (0.0-0.7); Absolute Lymphocyte Count 0.87 10^3/uL (1.2-3.4); Absolute Monocyte Count 0.54 10^3/uL (0.1-0.8); Absolute Neutrophil Count 4.04 10^3/uL (1.2-6.7); Basophils % 1.2 %; Eosinophils % 2.5 %; HCT 40.7 % (40.0-50.0); HGB 13.4 g/dL (13.5-17.5); Immature Grans % 0.4 %; Lymphocytes % 15.3 %; MCH 32.4 pg (27.0-33.0); MCHC 32.9 % (32.0-36.0); MCV 99 fL (80-95); MPV 10.8 fL (8.0-11.0); Monocytes % 9.5 %; Neutrophils % 71.1 %; Platelet Count 169 10^3/uL (130-400); RBC 4.13 10^6/uL (4.36-5.78); RDW-SD 47.3 fL; WBC 5.68 10^3/uL (4.4-10.8)
[2024-02-03 14:49] LABS: ALT 27 U/L (16-63); AST 20 U/L (15-37); Albumin 3.7 g/dL (3.4-5.0); Alkaline Phosphatase 70 U/L (46-116); Anion Gap 7.8 mmol/L (3-11); BUN 11 mg/dL (7-18); Bilirubin, Total 0.91 mg/dL (0.2-1.0); CO2 26.2 mmol/L (21.0-32.0); CREATININE 1.5 mg/dL (0.70-1.30); Calcium 9.4 mg/dL (8.5-10.1); Chloride 106 mmol/L (98-107); Estimated GFR 48.25 (mL/min/1.73m2); Glucose 234 mg/dL (74-106); Potassium 4.4 mmol/L (3.5-5.1); Sodium 140 mmol/L (136-145); Total Protein 6.5 g/dL (6.4-8.2); Troponin I < 50 ng/L (< or =60)
== END 2024-02-03 16:07 | disposition home or self-care (01) ==
PROVIDERS: Emergency Provider Emergency Medicine; PCP Family Medicine
DX: E86.0 Dehydration (principal); I25.10 Atherosclerotic heart disease of native coronary artery without angina pectoris; I10 Essential (primary) hypertension; E78.5 Hyperlipidemia, unspecified; I48.0 Paroxysmal atrial fibrillation; N17.9 Acute kidney failure, unspecified
CPT/HCPCS: 80053; 93005; 96360; 99284; 83735; 84484; 85025; 93010

== ENCOUNTER 2024-03-14 02:21 | Outpatient (CLI) | payer MEDICARE, BC, SELFPAY ==
[2024-03-14 12:31] LABS: HCT 46.6 % (40.0-50.0); HGB 15.8 g/dL (13.5-17.5); MCH 31.8 pg (27.0-33.0); MCHC 33.9 % (32.0-36.0); MCV 94 fL (80-95); MPV 11.5 fL (8.0-11.0); Platelet Count 186 10^3/uL (130-400); RBC 4.97 10^6/uL (4.36-5.78); RDW 12.6 % (11.8-14.1); RDW-SD 43.5 fL; WBC 7.29 10^3/uL (4.4-10.8)
[2024-03-14 12:34] LABS: ALT 29 U/L (16-63); AST 24 U/L (15-37); Alkaline Phosphatase 93 U/L (46-116); BUN 10 mg/dL (7-18); Bilirubin, Total 1.01 mg/dL (0.2-1.0); CREATININE 0.9 mg/dL (0.70-1.30); Calcium 9.7 mg/dL (8.5-10.1); Calculated LDL 49 mg/dL (<100); Chloride 105 mmol/L (98-107); Cholesterol 134 mg/dL (<200); Estimated GFR 89.07 (mL/min/1.73m2); Glucose 121 mg/dL (74-106); HDL Cholesterol 70 mg/dL (40-60); Potassium 3.7 mmol/L (3.5-5.1); Sodium 140 mmol/L (136-145); Total Protein 7.4 g/dL (6.4-8.2); Triglyceride 79 mg/dL (<150)
== END 2024-03-14 02:22 | disposition home or self-care (01) ==
LOC: LOS 02:21
PROVIDERS: PCP Family Medicine; Visit Provider Family Medicine
DX: Z79.01 Long term (current) use of anticoagulants (principal); I10 Essential (primary) hypertension
CPT/HCPCS: 36415; 80053; 80061; 85027

== ENCOUNTER → 2024-12-17 13:39 | Outpatient (BNVA) | payer MEDICARE, BC, SELFPAY | PROVIDERS: PCP Family Medicine; Visit Provider Registered Nurse | DX: I25.10 Atherosclerotic heart disease of native coronary artery without angina pectoris (principal); I48.0 Paroxysmal atrial fibrillation; Z79.01 Long term (current) use of anticoagulants; Z79.02 Long term (current) use of antithrombotics/antiplatelets; Z79.899 Other long term (current) drug therapy | CPT/HCPCS: 99214 ==

== ENCOUNTER 2025-02-12 09:53 | Outpatient (CLI) | payer MEDICARE, BC, SELFPAY ==
[2025-02-12 15:43] LABS: HCT 40.9 % (40.0-50.0); HGB 14.1 g/dL (13.5-17.5); MCH 31.9 pg (27.0-33.0); MCHC 34.5 % (32.0-36.0); MCV 93 fL (80-95); MPV 11.0 fL (8.0-11.0); Platelet Count 205 10^3/uL (130-400); RBC 4.42 10^6/uL (4.36-5.78); RDW 12.5 % (11.8-14.1); RDW-SD 43.0 fL; WBC 7.75 10^3/uL (4.4-10.8)
[2025-02-12 16:35] LABS: ALT 42 U/L (16-63); AST 38 U/L (15-37); Albumin 4.4 g/dL (3.4-5.0); Alkaline Phosphatase 79 U/L (46-116); Anion Gap 10.2 mmol/L (3-11); BUN 20 mg/dL (7-18); Bilirubin, Total 1.0 mg/dL (0.2-1.0); CO2 25.8 mmol/L (21.0-32.0); Calcium 9.9 mg/dL (8.5-10.1); Chloride 104 mmol/L (98-107); Estimated GFR 78.00 (mL/min/1.73m2); Glucose 82 mg/dL (74-106); Potassium 4.3 mmol/L (3.5-5.1); Sodium 140 mmol/L (136-145); TSH (W/Ref FT4) 2.01 uIU/mL (0.36-3.74); Total Protein 7.3 g/dL (6.4-8.2)
[2025-02-13 09:52] LABS: Hepatitis C Ab w Rflx HCV PCR Negative (Negative)
== END 2025-02-12 09:54 | disposition home or self-care (01) ==
LOC: LBO 09:53
PROVIDERS: PCP Family Medicine; Visit Provider Family Medicine
DX: I10 Essential (primary) hypertension (principal); Z79.01 Long term (current) use of anticoagulants; Z11.59 Encounter for screening for other viral diseases; E03.9 Hypothyroidism, unspecified
CPT/HCPCS: 36415; 80053; 80151; 85027; 86803; 84443